=== PATIENT | male | born 1955 | race Caucasian/White ===

== ENCOUNTER → 2018-01-11 08:02 | Outpatient (CLI) | payer OTHER, SELFPAY ==
[2018-01-11 09:49] LABS: Anion Gap 6 (5-15); BUN 16 mg/dL (7-18); Calcium,Total 9.1 mg/dL (8.5-10.1); Chloride 102 mmol/L (98-107); Creatinine, Serum 0.73 mg/dL (0.70-1.30); EST Glomerular Filtration Rate 115 mL/min (>60); Est Glom Filt Rate - Afr Amer 140 mL/min (>60); Glucose 109 mg/dL (74-106); Sodium Level 138 mmol/L (136-145)
== END ==
PROVIDERS: Family Provider Family Medicine; PCP Family Medicine; Visit Provider Family Medicine
DX: I10 Essential (primary) hypertension (principal)
CPT/HCPCS: 36415; 80048

== ENCOUNTER → 2018-07-13 09:42 | Outpatient (CLI) | payer MEDICARE, OTHER, SELFPAY ==
[2018-07-13 12:07] LABS: AST(SGOT) 31 U/L (15-37); Alanine Aminotransfer ALT/SGPT 52 U/L (16-61); Albumin, Serum 3.8 g/dL (3.2-5.0); Alkaline Phosphatase 65 U/L (45-117); Bilirubin, Direct 0.12 mg/dL (0.00-0.30); Cholesterol 130 mg/dL (200); Globulin 4.2 g/dL (2.2-4.2); High Density Lipoprotein 24 mg/dL; Triglycerides 437 mg/dL
== END ==
PROVIDERS: Family Provider Family Medicine; PCP Family Medicine; Visit Provider Internal Medicine Cardiovascular Disease
DX: I10 Essential (primary) hypertension (principal); E78.5 Hyperlipidemia, unspecified
CPT/HCPCS: 36415; 80061; 80076

== ENCOUNTER → 2018-07-27 08:19 | Outpatient (CLI) | payer MEDICARE, OTHER, SELFPAY ==
--- NOTE | 2018-07-27 08:22 | ECHOCS_ITS ---
Reason For Study: HTN Procedure This was a 2D Doppler, Color Flow transthoracic echocardiogram. The study was technically difficult. Contrast injection was performed. Exam performed in department. Left Ventricle Normal LV size. The estimated ejection fraction is 55 %. Stage 1 diastolic dysfunction. No regional wall motion abnormalities noted. Right Ventricle Normal RV size. ICD or pacer leads identified within the right ventricle. Normal systolic function. Atria The left atrium is mildly enlarged. Normal right atrium. Mitral Valve Normal mitral valve. Tricuspid Valve Normal tricuspid valve. Aortic Valve Normal aortic valve. Trisinus/trileaflet aortic valve. Pulmonic Valve Normal pulmonic valve. Great Vessels Normal aortic root. The pulmonary artery is normal size. Normal inferior vena cava. Pericardium/Pleural No pericardial effusion. MMode/2D Measurements & Calculations LVIDd: 4.4 cm IVSd: 1.8 cm Ao root diam: 4.3 cm LVIDs: 3.6 cm LVPWd: 1.1 cm FS: 17.5 % LAV(MOD-bp): 73.9 ml LVAd ap4: 32.5 cm2 SV(MOD-sp4): 62.7 ml LAV(MOD-bp) Indexed: 83.8 ml/m2 EDV(MOD-sp4): 116.0 ml LAV(MOD-sp2): 65.6 ml EDV(sp4-el): 119.5 ml LAV(MOD-sp4): 77.2 ml LVAs ap4: 22.0 cm2 ESV(MOD-sp4): 53.3 ml ESV(sp4-el): 55.2 ml EF(MOD-sp4): 54.1 % EF(sp4-el): 53.8 % SV(sp4-el): 64.3 ml LA A4 area: 24.1 cm2 Time Measurements MV dec time: 0.33 sec Doppler Measurements & Calculations MV E max derik: 49.1 cm/sec Lat Peak E' Derik: 4.0 cm/sec Med Peak E' Derik: 3.2 cm/sec MV A max derik: 76.5 cm/sec E/E' lat: 12.3 E/E' med: 15.2 MV E/A: 0.64 MV V2 max: 78.3 cm/sec MV P1/2t max derik: 45.3 cm/sec Ao V2 max: 123.8 cm/sec MV max P.5 mmHg MV P1/2t: 120.7 msec Ao max P.1 mmHg MV V2 mean: 35.8 cm/sec MV dec slope: 109.9 cm/sec2 Ao V2 mean: 77.4 cm/sec MV mean P.62 mmHg MVA(P1/2t): 1.8 cm2 Ao mean P.9 mmHg MV V2 VTI: 21.7 cm Ao V2 VTI: 27.1 cm LV V1 max: 101.1 cm/sec PA V2 max: 82.8 cm/sec TR max derik: 227.4 cm/sec LV V1 max P.1 mmHg TR max P.7 mmHg LV V1 mean P.9 mmHg LV V1 mean: 61.6 cm/sec LV V1 VTI: 23.7 cm Interpretation Summary Normal LV size. The estimated ejection fraction is 55 %. Stage 1 diastolic dysfunction. The left atrium is mildly enlarged. Contrast injection was performed. Compared to previous study, the left ventricular systolic function has improved.. Ordering Physician: Christofer Martin Referring Physician: MELINDA TROTTER Performed By: Peewee Brown RCS
== END ==
PROVIDERS: Family Provider Family Medicine; PCP Family Medicine; Referring Provider Internal Medicine Cardiovascular Disease; Visit Provider Internal Medicine Cardiovascular Disease
DX: I10 Essential (primary) hypertension (principal); E78.5 Hyperlipidemia, unspecified; Z98.890 Other specified postprocedural states
CPT/HCPCS: 93306; Q9957; A4216; C8929

== ENCOUNTER → 2018-09-29 09:48 | Outpatient (CLI) | payer MEDICARE, OTHER, SELFPAY ==
[2018-09-29 10:54] LABS: AST(SGOT) 32 U/L (15-37); Alanine Aminotransfer ALT/SGPT 57 U/L (16-61); Albumin, Serum 3.8 g/dL (3.2-5.0); Alkaline Phosphatase 80 U/L (45-117); Bilirubin, Direct 0.09 mg/dL (0.00-0.30); Cholesterol 146 mg/dL (200); Globulin 4.2 g/dL (2.2-4.2); Glucose 107 mg/dL (74-106); High Density Lipoprotein 25 mg/dL; Thyroid Stim Hormone (TSH) 1.39 uIU/mL (0.358-3.74); Triglycerides 438 mg/dL
--- OUTSIDE RECORDS SUMMARY | 2018-11-24 04:54 | XMS RPT_ITS ---
:1955 Author Organization [place] Support Name Relationship Address Phone PIERCE PABLO Unavailable [phone] + [address] [place] [address] R Unavailable Unavailable Unavailable PIERCE PABLO Unavailable [address] + [address] [place] [address] R Unavailable Unavailable Unavailable HARRY PABLOAN Unavailable [address] + [place] [address] R Unavailable Unavailable Unavailable HARRY PABLOAN Unavailable [address] + [place] [address] R Unavailable Unavailable Unavailable HARRY PABLOAN Unavailable [address] + [place] [address] R Unavailable Unavailable Unavailable HARRY PABLOAN Unavailable [address] + [place] [address] R Unavailable Unavailable Unavailable HARRY PABLOAN Unavailable [address] + [place] [address] R Unavailable Unavailable Unavailable HARRY PABLOAN Unavailable [address] + [place] [address] R Unavailable Unavailable Unavailable HARRY PABLOAN Unavailable [address] + [place] [address] R Unavailable Unavailable Unavailable HARRY PABLOAN Unavailable [address] + [place] [address] CEM PABLO JR. Unavailable Unavailable Unavailable [place] PIERCE PABLO Unavailable [address] + [place] [address] R Unavailable Unavailable Unavailable PIERCE PABLO Unavailable NA + [place], [place] R Unavailable Unavailable Unavailable Care Team Providers Name Role Phone OLGA NIELSON Attending Unavailable CEDRIC PELAEZ Referring Unavailable JAYCE KABA Primary Care Unavailable MAYCO, MELINDA Guardado Attending Unavailable MAYCO, MELINDA J Referring Unavailable MAYCO, MELINDA J Attending Unavailable MAYCO, MELINDA J Referring Unavailable MAYCO, MELINDA J Referring Unavailable KAVYA BONNER Attending Unavailable MAYCO, MELINDA Guardado Referring Unavailable Kavya Bonner Attending Unavailable Mayco, Melinda Primary Care Unavailable Mayco, Melinda Referring Unavailable Veronica, Graettinger Attending Unavailable Veronica, Christofer Referring Unavailable Mayco, Melinda Primary Care Unavailable Chela Palomo Attending Unavailable Deenwood, Melinda Referring Unavailable Veronica, Christofer Attending Unavailable Veronica, Christofer Referring Unavailable Mayco, Melinda Primary Care Unavailable Veronica, Christofer Attending Unavailable Amyco, Melinda Referring Unavailable Deenwood, Melinda Primary Care Unavailable Chela Palomo Attending Unavailable Deenwood, Melinda Referring Unavailable Mayco, Melinda Primary Care Unavailable Mayco, Melinda Attending Unavailable Deenwood, Melinda Referring Unavailable Deenwood, Melinda Primary Care Unavailable Chela Palomo Attending Unavailable Mayco, Melinda Referring Unavailable Mayco, Melinda Primary Care Unavailable Veronica, Christofer Attending Unavailable Veronica, Graettinger Referring Unavailable Veronica, Graettinger Attending Unavailable Veronica, Christofer Referring Unavailable Deenwood, Melinda Primary Care Unavailable Chela Palomo Attending Unavailable Deenwood, Melinda Referring Unavailable Mayco, Melinda Primary Care Unavailable PROBLEMS PROBLEMS DATE TYPE CONDITION / CODE ATTENDING STATUS SOURCE 2018 Unknown I10 - Essential Veronica, Christofer Active [place] (primary) Community hypertension / Hospital I10(ICD-10) Repository 2018 Unknown E78.5 - Veronica, Christofer Active [place] Hyperlipidemia, Community unspecified / Hospital E78.5(ICD-10) Repository 2018 Unknown Z98.890 - Other Veronica, Graettinger Active [place] specified Community postprocedural Hospital states / Repository Z98.890(ICD-10) 2018 Unknown I47.2 - Ventricular Veronica, Christofer Active [place] tachycardia / Community I47.2(ICD-10) Hospital Repository 2018 Unknown I42.2 - Other Veronica, Graettinger Active [place] hypertrophic Community cardiomyopathy / Hospital I42.2(ICD-10) Repository 2018 Unknown Z95.810 - Presence Veronica, Christofer Active [facility] (implantable[facility] Hospital cardiac Repository defibrillator / Z95.810(ICD-10) 04/26/2018 Active Calculus of kidney / NA Active [place] N20.0(ICD-10) Clinic Main [place] Repository 04/25/2018 Active Radiculopathy, NA Active [place] lumbar region / Clinic Main M54.16(ICD-10) [place] Repository 01/12/2018 Admitting Mohs Surgery / 936() OLGA NIELSON Active [facility] Repository PROCEDURES PROCEDURES No Procedure Records FoundRESULTS RESULTS OPERATIVE REPORT - Observed: 10/04/2018 Status: F Source: [place] [facility] 2:00 PM [facility] REPOSITORY [facility] Medical Records Department [address] [place] [address] Operative Report - Endoscopy MR#: [id number] Acct: [id number] Name: CEM PABLO Rep #: [id number] : 1955 63 From: Kavya Bonner MD PCP: Melinda Mao MD Status: [facility] Patient Name: Cem Pablo Procedure Date: 10/04/2018 1:18 PM Date of : 1955 Age: 63 Procedure: Colonoscopy Indications: Screening for colorectal malignant neoplasm Providers: Kavya Bonner MD Referring MD: Melinda Mao Medicines: Midazolam 5 mg IV, Fentanyl 100 micrograms IV, Diphenhydramine 50 mg IV Patient Profile: Refer to note in patient chart for documentation of history and physical. Last Colonoscopy: 10 years ago. Complications: No immediate complications. Procedure: Pre-Anesthesia Assessment: - Prior to the procedure, a History and Physical was performed, and patient medications and allergies were reviewed. The patient is competent. The risks and benefits of the procedure and the sedation options and risks were discussed with the patient. All questions were answered and informed consent was obtained. Patient identification and proposed procedure were verified by the physician in the pre-procedure area. Mental Status Examination: alert and oriented. Airway Examination: normal oropharyngeal airway and neck mobility. Respiratory Examination: clear to auscultation. CV Examination: normal. Prophylactic Antibiotics: The patient does not require prophylactic antibiotics. Prior Anticoagulants: The patient has taken no previous anticoagulant or antiplatelet agents. ASA Grade Assessment: II - A patient with mild systemic disease. After reviewing the risks and benefits, the patient was deemed in satisfactory condition to undergo the procedure. The anesthesia plan was to use moderate sedation / analgesia (conscious sedation). Immediately prior to administration of medications, the patient was re-assessed for adequacy to receive sedatives. The heart rate, respiratory rate, oxygen saturations, blood pressure, adequacy of pulmonary ventilation, and response to care were monitored throughout the procedure. The physical status of the patient was re-assessed after the procedure. After I obtained informed consent, the scope was passed under direct vision. Throughout the procedure, the patient's blood pressure, pulse, and oxygen saturations were monitored continuously. The colonoscope was introduced through the anus and advanced to the cecum, identified by appendiceal orifice and ileocecal valve. The colonoscopy was performed without difficulty. The patient tolerated the procedure well. The quality of the bowel preparation was adequate, though required time for lavage to completely clear the grimaldo.. Moderate Sedation: The administration of moderate sedation was initiated at 13:24 PM. Moderate (conscious) sedation was personally administered by the endoscopist. The following parameters were monitored: oxygen saturation, heart rate, blood pressure, and response to care. Total physician intraservice time was 10 minutes. Scope In: 1:30:23 PM Scope Withdrawal Time 0 hours 18 minutes 13 seconds Scope Out: 1:54:14 PM Total Procedure Duration Time 0 hours 23 minutes 51 seconds Findings: The perianal and digital rectal examinations were normal. Pertinent negatives include normal sphincter tone. A 5 to 10 mm polyp was found in the sigmoid colon, picture could not be obtained due to location under a fold. The polyp was sessile. The polyp was removed with a cold biopsy forceps. Resection and retrieval were complete. Verification of patient identification for the specimen was done by the nurse. Estimated blood loss was minimal. Non-bleeding internal hemorrhoids were found. Impression: - One 5 to 10 mm polyp in the sigmoid colon, removed with a cold biopsy forceps. Resected and retrieved. - Non-bleeding internal hemorrhoids. Recommendation: - Repeat colonoscopy date to be determined after pending pathology results are reviewed for surveillance based on pathology results. - Telephone my office for pathology results in 1 week. - Continue present medications. Procedure Code(s): --- Professional --- 58556, Colonoscopy, flexible; with biopsy, single or multiple G0500, Moderate sedation services provided by the same physician or other qualified health inpatient care manager rn performing a gastrointestinal endoscopic service that sedation supports, requiring the presence of an independent trained observer to assist in the monitoring of the patient's level of consciousness and physiological status; initial 15 minutes of intra-service time; patient age 5 years or older (additional time may be reported with 76737, as appropriate) Diagnosis Code(s): --- Professional --- K64.8, Other hemorrhoids D12.5, Benign neoplasm of sigmoid colon Z12.11, Encounter for screening for malignant neoplasm of colon CPT copyright 2017 [employer]. All rights reserved. The codes documented in this report are preliminary and upon corporate law specialist review may be revised to meet current compliance requirements. MD Kavya Wesley MD 10/04/2018 2:00:21 PM This report has been signed electronically. Number of Addenda: 0 Note Initiated On: 10/04/2018 1:18 PM 10/04/18 1400 Date Kavya Bonner MD Cosigner Signature: Date (if indicated) CC: Kavya Bonner MD; Melinda Mao MD Date Dictated: 10/04/18 1318 Date Transcribed: [place]: LW Signed COLON BIOPSY (CHOOSE Observed: 10/04/2018 Status: F Source: [place] SITE) 12:50 PM [facility] REPOSITORY Patient: CEM PABLO Jr. : 1955 (63/M) Acct Num: [id number] Phys: Ha HAYDEN,Kavya Unit Num: [id number] Loc: EN Specimen: [id number] Received: 10/04/18 - 1517 Spec Type: COLON BX TISSUES 1 TISSUES: Sigmoid colon biopsy GROSS DESCRIPTION Received in fixative is one container labeled with the patient's name and designated biopsy polyp sigmoid. The specimen consists of one irregular fragment of light parr soft tissue that measures 0.4 x 0.3 x 0.1 cm. The specimen is totally submitted in one cassette. / CHRIS:tate 10/05/18 TC:1 CPT: 28111 HEADER OPERATION: Colonoscopy (MOD) PRE-OP DIAGNOSIS: Screening TISSUE SUBMITTED: Biopsy polyp sigmoid MICROSCOPIC DESCRIPTION Slides are reviewed. MICROSCOPIC DIAGNOSIS Sigmoid polyp, biopsy: Tubular adenoma. SJ:tate 10/06/18 Signed Devonte Connorin 10/06/18 <signature on file> Performed By: #### PCOLBX #### [facility] [address] [place], [address] LIVER PROFILE Collected: 09/29/2018 Status: F Source: [place] 9:53 AM [facility] REPOSITORY TYPE CODE TESTS RESULT OUT OF RANGE REFERENCE UNITS LAB L501.1500 6.4-8.2 g/dL Normal T PROT 8.0 LAB L501.1800 3.2-5.0 g/dL Normal ALB 3.8 LAB L501.1950 2.2-4.2 g/dL Normal GLOB 4.2 LAB L501.4100 15-37 U/L Normal AST 32 LAB L501.4305 45-117 U/L Normal ALK P 80 LAB L501.4405 16-61 U/L Normal ALT 57 LAB L501.4600 0.20-1.00 mg/dL Normal T BILI 0.50 LAB L501.4700 0.00-0.30 mg/dL Normal D BILI 0.09 Performed By: #### L500.3400, L500.4100, L501.0100, L501.9520 #### [facility] [address] [place], [place], [id number] LIPID PROFILE Collected: 09/29/2018 Status: F Source: [place] 9:53 AM [facility] REPOSITORY TYPE CODE TESTS RESULT OUT OF RANGE REFERENCE UNITS LAB L501.4900 200 mg/dL Normal CHOL 146 Result Comment: <200 mg/dL Desirable 200-240 mg/dL Borderline >240 mg/dL High Risk LAB L501.5000 mg/dL High TRIG 438 Result Comment: The drugs N-Acetylcysteine and Metamizole may falsely depress this assay. TRIGLYCERIDE IS GREATER THAN 400 mg/dL. LDL RESULT IS INVALID AND WILL NOT BE REPORTED. Serum Triglycerides Reference Interval Normal <150 mg/dL Borderline high 150 - 199 mg/dL High 200 - 499 mg/dL Very High > or = 500 mg/dL LAB L501.6400 mg/dL Low HDL 25 Result Comment: The drugs N-Acetylcysteine and Metamizole may falsely depress this assay. Reference Range HDL <40 mg/dL Low HDL Cholesterol HDL >or= 60 mg/dL High HDL Cholesterol LAB L501.6500 0-130 mg/dL Test Normal not performed LDL LAB L501.6600 5-40 mg/dL Test Normal not performed VLDL Performed By: #### L500.3400, L500.4100, L501.0100, L501.9520 #### [facility] [address] [place], [address] GLUCOSE Collected: 09/29/2018 Status: F Source: [place] 9:53 AM [facility] REPOSITORY TYPE CODE TESTS RESULT OUT OF RANGE REFERENCE UNITS LAB L501.0100 74-106 mg/dL High GLU 107 Result Comment: Fasting Glucose result from 100 to 125 mg/dL suggests IMPAIRED HOMEOSTASIS per A.D.A. criteria. Please note revised GLUCOSE reference range effective 2017. Performed By: #### L500.3400, L500.4100, L501.0100, L501.9520 #### [facility] [address] [place], [address] THYROID STIM HORMONE Collected: 09/29/2018 Status: F Source: [place] (TSH) 9:53 AM [facility] REPOSITORY TYPE CODE TESTS RESULT OUT OF RANGE REFERENCE UNITS LAB L501.9520 0.358-3.74 uIU/mL Normal TSH 1.39 Performed By: #### L500.3400, L500.4100, L501.0100, L501.9520 #### [facility] [address] [place], [address] PACEMAKER CHECK Observed: 09/18/2018 Status: F Source: [place] 3:33 PM [facility] REPOSITORY [facility] [address] [place] [address] Pacemaker Check Date of Service: 09/15/18 1151 MR#: [id number] Acct: [id number] Name: CEM PABLO Jr. Rep #: [id number] : 1955 From: Chela Palomo Age/Sex: 63/M Location: [facility] Status: Signed Billing Codes ICD Device Billing: ICD Dev Prog Jt Kolby 09/15/18 1156 <Electronically signed by Chela Palomo > Date Chela Palomo 09/18/18 1533<Electronically signed by Christofer Martin MD> Cosigner Signature: Date (if applicable) Christofer Martin MD CC: PROGRESS Observed: 09/18/2018 Status: COMPLETED Source: [place] 1:02 PM [facility] REPOSITORY O ID: [id number] Author: Kavya Bonner Service: (none) Author Type: Physician Type: Progress Notes Filed: 09/22/2018 9:06 AM Note Text: Cem Pablo 1955 REFERRING PHYSICIAN: Melinda Mao MD CHIEF COMPLAINT: Consult (colonoscopy) HPI: The patient is a 63 year old male presents for consideration of screening for colon cancer via colonoscopy. No colon cancer known in family. Denies blood in stools. Denies abdominal pain. Denies changes in bowel habits. Had last colonoscopy about 10 years ago. Had active wakeup with neck surgery, was saying strange things after carpal tunnel surgery - concern about this with regard to anesthesia. PAST MEDICAL HISTORY Diagnosis Date - Basal cell carcinoma (BCC) of skin of lip 01/14/2018 - Benign neoplasm of colon - BPH (benign prostatic hyperplasia) - Cardiomyopathy (HCC) Veronica Beckham, ICD - Hematuria negative work up-Dr. Garnett - HTN (hypertension) - Hypercholesteremia PAST SURGICAL HISTORY Procedure Laterality Date - COLONOSCOPY W/BX 05/02/08 - PAST SURGICAL HISTORY OF 1974 Left knee surgery - PAST SURGICAL HISTORY OF 02/2012 ICD placement at [facility]- done by Dr Serrano - PAST SURGICAL HISTORY OF 2010 right carpal tunnel release - PAST SURGICAL HISTORY OF 07/26/2013 cervical (Dr. Mcbride) Current Outpatient Prescriptions: hydroCHLOROthiazide (HYDRODIURIL, ESIDRIX) 25 mg tablet Take 1 tablet by mouth once daily. pravastatin (PRAVACHOL) 40 mg tablet Take 1 tablet by mouth once daily. doxazosin (CARDURA) 1 mg tablet Take 1 tablet by mouth once daily. lisinopril (ZESTRIL, PRINIVIL) 20 mg tablet Take 1 tablet by mouth twice daily. carvedilol (COREG) 12.5 mg tablet Take 12.5 mg by mouth twice daily with meals. aspirin, enteric coated (ADULT LOW DOSE ASPIRIN) 81 mg EC tablet Take 1 tablet by mouth once daily. ALLERGIES: Phenobarbital PERSONAL HISTORY: Social History Marital status: Spouse name: Years of education: Number of children: Social History Main Topics Smoking status: Former Smoker Packs/day: 1.50 Years: 0.00 Types: Cigarettes Quit date: 07/26/2011 Smokeless tobacco: Never Used Alcohol use: No Drug use: No FAMILY HISTORY Problem Relation Age of Onset - other (cirrhosis) Mother - Cancer Father lung - Heart Father - COPD Father - Diabetes Sister REVIEW OF SYSTEMS: General: The patient denies fatigue, denies weight loss, denies weight gain, denies feeling hot, and denies feelings of cold. Eyes: The patient denies glaucoma, denies eye injury/surgery, wears glasses or contacts. Ear/Nose/Throat: The patient denies allergies, denies hayfever, denies ear infections, and denies bloody noses. Cardiovascular: last ECHO - EF 55%, has atypical hypertrophic cardiomyopathy, denies chest pain, denies heart disease, denies high blood pressure,denies cardiac stent, denies prior heart attack, denies irregular heart beat, denies high cholesterol, denies poor circulation, denies heart failure, other cardiac issues, denies claudication, denies cold feet, denies peripheral arterial stent. Respiratory: The patient denies tuberculosis, denies pneumonia, denies frequent cough, denies pulmonary embolism, denies shortness of breath, and denies coughing up blood. Gastrointestinal: The patient denies difficulty swallowing, denies acid reflux, denies ulcers, denies vomiting, denies jaundice/hepatitis, denies gallbladder problems, denies black or tarry stools, denies hemorrhoids, denies bleeding from rectum, denies diverticulitis, denies constipation, denies diarrhea, denies loss of stool control, and denies hernias. Kidney/Bladder: The patient denies kidney stones, denies urine infections, and denies bloody urine. Skin: The patient NOTES a history of skin cancer, denies bleeding/changing moles, and denies a history of skin rash. Neurologic: The patient denies a history of epilepsy/convulsions, denies headaches, denies head/spinal injuries, and denies stroke/TIA. Psychiatric: The patient denies psychiatric medications, denies depression, and denies voices, denies substance abuse. Endocrine: The patient denies thyroid disorders, denies diabetes, and denies hormonal problems. Hematologic: The patient denies a history of bruising, denies bleeding, and denies anemia, denies blood clots. Infections: The patient denies a history of measles and mumps, denies rheumatic fever, and denies sexually transmitted diseases. Musculoskeletal: The patient denies back pain/injury, denies back problems, denies sciatica, denies knee/foot trouble, denies arthritis, or denies gout. PHYSICAL EXAMINATION: General: The patient is 63 year old male, well nourished, well hydrated in no acute distress. The patient is oriented to time, place, and person. VITALS: Blood pressure 150/94, pulse 72, weight 111.1 kg (245 lb). Ht: 6'2 Body mass index is 31.46 kg/m?. Head ? Normocephalic. EOM intact with sclera clear and no icterus noted. Wearing glasses. Mouth with mucus membranes moist. Neck - supple with no jugular venous distention noted. Trachea is midline. Lungs ? clear to auscultation. Normal breath sounds. No rales/rhonchi/wheezing noted. No labored breathing noted, such as retractions. Heart ? normal S1 and S2 auscultated. No rubs/clicks/murmurs noted. Regular rate. Abdomen ? soft and benign. Normal bowel sounds Extremities ? no calf tenderness noted. Skin ? normal skin integrity. Neurological ? gait normal, no focal deficits noted Psych ? calm and appropriate Assessment IMPRESSION: screening for colon cancer via colonoscopy, adverse reaction to anesthesia in past PLAN: I have discussed the above with the patient. I have offered colonoscopy, possible biopsies. I have explained the procedure to the patient. I have counseled the patient as to the risks of the procedure, including but not limited to: infection, bleeding, injury to any blood vessels/nerves, perforation of the GI tract, inability to complete the procedure, injury to any intraabdominal organs such as liver/spleen, complications of anesthesia, etc. ? the patient understands. The patient wishes to proceed. I have reviewed the patient's anesthesia history and I believe that he will tolerate moderate IV conscious sedation in the AEC I have answered all questions to the patient?s satisfaction and the patient has no further questions. . Diagnoses: No diagnosis found. Return to Clinic: The patient is instructed to follow-up with me after the procedure as needed Kavya Bonner MD CNOV Observed: 09/18/2018 Status: COMPLETED Source: [place] 1:00 PM [facility] REPOSITORY Office Visit (GENSWS) CEM PABLO ([id number]) 1955 M Date Time Provider Department 09/18/18 1:00 PM KAVYA BONNER During your visit today, we recorded the following information about you: Pulse Blood pressure Weight 72/minute 150/94 111.1 kg Kavya Bonner MD 09/22/2018 9:06 AM Signed Cem Pablo 1955 REFERRING PHYSICIAN: Melinda Mao MD CHIEF COMPLAINT: Consult (colonoscopy) HPI: The patient is a 63 year old male presents for consideration of screening for colon cancer via colonoscopy. No colon cancer known in family. Denies blood in stools. Denies abdominal pain. Denies changes in bowel habits. Had last colonoscopy about 10 years ago. Had active wakeup with neck surgery, was saying strange things after carpal tunnel surgery - concern about this with regard to anesthesia. PAST MEDICAL HISTORY Diagnosis Date - Basal cell carcinoma (BCC) of skin of lip 01/14/2018 - Benign neoplasm of colon - BPH (benign prostatic hyperplasia) - Cardiomyopathy (HCC) Veronica Beckham, ICD - Hematuria negative work up-Dr. Garnett - HTN (hypertension) - Hypercholesteremia PAST SURGICAL HISTORY Procedure Laterality Date - COLONOSCOPY W/BX 05/02/08 - PAST SURGICAL HISTORY OF 1974 Left knee surgery - PAST SURGICAL HISTORY OF 02/2012 ICD placement at [facility]- done by Dr Serrano - PAST SURGICAL HISTORY OF 2010 right carpal tunnel release - PAST SURGICAL HISTORY OF 07/26/2013 cervical (Dr. Mcbride) Current Outpatient Prescriptions: hydroCHLOROthiazide (HYDRODIURIL, ESIDRIX) 25 mg tablet Take 1 tablet by mouth once daily. pravastatin (PRAVACHOL) 40 mg tablet Take 1 tablet by mouth once daily. doxazosin (CARDURA) 1 mg tablet Take 1 tablet by mouth once daily. lisinopril (ZESTRIL, PRINIVIL) 20 mg tablet Take 1 tablet by mouth twice daily. carvedilol (COREG) 12.5 mg tablet Take 12.5 mg by mouth twice daily with meals. aspirin, enteric coated (ADULT LOW DOSE ASPIRIN) 81 mg EC tablet Take 1 tablet by mouth once daily. ALLERGIES: Phenobarbital PERSONAL HISTORY: Social History Marital status: Spouse name: Years of education: Number of children: Social History Main Topics Smoking status: Former Smoker Packs/day: 1.50 Years: 0.00 Types: Cigarettes Quit date: 07/26/2011 Smokeless tobacco: Never Used Alcohol use: No Drug use: No FAMILY HISTORY Problem Relation Age of Onset - other (cirrhosis) Mother - Cancer Father lung - Heart Father - COPD Father - Diabetes Sister REVIEW OF SYSTEMS: General: The patient denies fatigue, denies weight loss, denies weight gain, denies feeling hot, and denies feelings of cold. Eyes: The patient denies glaucoma, denies eye injury/surgery, wears glasses or contacts. Ear/Nose/Throat: The patient denies allergies, denies hayfever, denies ear infections, and denies bloody noses. Cardiovascular: last ECHO - EF 55%, has atypical hypertrophic cardiomyopathy, denies chest pain, denies heart disease, denies high blood pressure,denies cardiac stent, denies prior heart attack, denies irregular heart beat, denies high cholesterol, denies poor circulation, denies heart failure, other cardiac issues, denies claudication, denies cold feet, denies peripheral arterial stent. Respiratory: The patient denies tuberculosis, denies pneumonia, denies frequent cough, denies pulmonary embolism, denies shortness of breath, and denies coughing up blood. Gastrointestinal: The patient denies difficulty swallowing, denies acid reflux, denies ulcers, denies vomiting, denies jaundice/hepatitis, denies gallbladder problems, denies black or tarry stools, denies hemorrhoids, denies bleeding from rectum, denies diverticulitis, denies constipation, denies diarrhea, denies loss of stool control, and denies hernias. Kidney/Bladder: The patient denies kidney stones, denies urine infections, and denies bloody urine. Skin: The patient NOTES a history of skin cancer, denies bleeding/changing moles, and denies a history of skin rash. Neurologic: The patient denies a history of epilepsy/convulsions, denies headaches, denies head/spinal injuries, and denies stroke/TIA. Psychiatric: The patient denies psychiatric medications, denies depression, and denies voices, denies substance abuse. Endocrine: The patient denies thyroid disorders, denies diabetes, and denies hormonal problems. Hematologic: The patient denies a history of bruising, denies bleeding, and denies anemia, denies blood clots. Infections: The patient denies a history of measles and mumps, denies rheumatic fever, and denies sexually transmitted diseases. Musculoskeletal: The patient denies back pain/injury, denies back problems, denies sciatica, denies knee/foot trouble, denies arthritis, or denies gout. PHYSICAL EXAMINATION: General: The patient is 63 year old male, well nourished, well hydrated in no acute distress. The patient is oriented to time, place, and person. VITALS: Blood pressure 150/94, pulse 72, weight 111.1 kg (245 lb). Ht: 6'2 Body mass index is 31.46 kg/m?. Head ? Normocephalic. EOM intact with sclera clear and no icterus noted. Wearing glasses. Mouth with mucus membranes moist. Neck - supple with no jugular venous distention noted. Trachea is midline. Lungs ? clear to auscultation. Normal breath sounds. No rales/rhonchi/wheezing noted. No labored breathing noted, such as retractions. Heart ? normal S1 and S2 auscultated. No rubs/clicks/murmurs noted. Regular rate. Abdomen ? soft and benign. Normal bowel sounds Extremities ? no calf tenderness noted. Skin ? normal skin integrity. Neurological ? gait normal, no focal deficits noted Psych ? calm and appropriate Assessment IMPRESSION: screening for colon cancer via colonoscopy, adverse reaction to anesthesia in past PLAN: I have discussed the above with the patient. I have offered colonoscopy, possible biopsies. I have explained the procedure to the patient. I have counseled the patient as to the risks of the procedure, including but not limited to: infection, bleeding, injury to any blood vessels/nerves, perforation of the GI tract, inability to complete the procedure, injury to any intraabdominal organs such as liver/spleen, complications of anesthesia, etc. ? the patient understands. The patient wishes to proceed. I have reviewed the patient's anesthesia history and I believe that he will tolerate moderate IV conscious sedation in the A[facility] I have answered all questions to the patient?s satisfaction and the patient has no further questions. . Diagnoses: No diagnosis found. Return to Clinic: The patient is instructed to follow-up with me after the procedure as needed MD Kavya Black MD 09/18/2018 1:14 PM Signed How to Prepare for Your Colonoscopy Using Golytely, Nulytely, Trilyte or Colyte Preparations with Conscious Sedation IMPORTANT - Read These Instructions at Least 2 Weeks Before your Colonoscopy Grewal Instructions: ? Your bowel must be empty so that your doctor can clearly view your colon. Follow all of the instructions in this handout EXACTLY as they are written. If you do NOT follow the directions for when to start drinking the bowel preparation, your colonoscopy WILL be cancelled. ? Do NOT eat any solid food the ENTIRE day before your colonoscopy. ? Buy your bowel preparation at least 5 days before your colonoscopy. ? Do NOT mix the solution until the day before your colonoscopy. Designated Timber Appraiser on the Day of Your Exam A responsible family member or friend MUST come with you to your colonoscopy and REMAIN in the endoscopy area until you are discharged. You are NOT ALLOWED to drive, take a taxi or bus, or leave the Endoscopy Center ALONE. If you do not have a responsible water tanker driver (family member or friend) with you to take you home, you exam cannot be done with sedation and will be cancelled. Medications Some of the medications you take may need to be stopped or adjusted before your colonoscopy. You MUST call the doctor who ordered any of the following medicines at least 2 weeks before your colonoscopy. ? Blood thinners - such as Coumadin (warfarin), Plavix (clopidogrel), Ticlid (ticlopidine hydrochloride), Agrylin (anagrelide), Xarelto (Rivaroxaban), Pradaxa (Dabigatran), Eliquis (Apixaban), and Effient (Prasugrel). ? Insulin or diabetes pills. Please call the doctor that monitors your glucose levels. Your insulin dosage may need to be adjusted due to the diet restrictions required with this bowel preparation. (Please bring your diabetes medicines with you on the day of your procedure.) If you take aspirin, take it and ALL other medications prescribed by your doctor. On the day of your colonoscopy, take your medications with a sip of water. Five (5) Days Before Your Colonoscopy ? Do NOT take medicines that stop diarrhea - such as Imodium, Kaopectate, or Pepto Bismol. ? Do NOT take fiber supplements - such as Metamucil, Citrucel, or Perdiem. ? Do NOT take products that contain iron - such as multi-vitamins (the label lists what is in the products). ? Do NOT take Vitamin E. Buy the prescription bowel preparation solution at your local pharmacy or drugstore pharmacy. Three (3) Days Before Your Colonoscopy ? Do NOT eat high-fiber foods - such as popcorn, beans, seeds (flax, sunflower, quinoa), multigrain bread, nuts, salad/vegetables, or fresh and dried fruit. One (1) Day Before Your Colonoscopy Only drink clear liquids the ENTIRE DAY before your colonoscopy. Do NOT eat any solid foods. Drink at least 8 ounces of clear liquids every hour after waking up. The clear liquids you can drink include: ? Water, apple, or white grape juice; broth; coffee or tea (without milk or creamer); clear carbonated beverages such as balta diallo or lemon-confederated colville soda; Gatorade or other sports drinks (not red); Morro-Aid or other flavored drinks (not red). You may eat plain jello or other gelatins (not red) or popsicles (not red). Do NOT drink alcohol on the day before or the day of the procedure. When to Mix and Drink Your Bowel Prep Follow the instructions on the label. After mixing, place the solution in the refrigerator for a couple of hours before drinking. You may add the flavor pack that came with the bowel preparation. Do NOT add ice, sugar or any flavorings to the solution. Morning Appointment (Before 12 noon) Step 1: ? Start drinking the bowel preparation at 6 PM the evening before your colonoscopy. Drink an 8-oz glass of bowel preparation every 10 minutes for a total of 8 glasses. ? You may continue to drink clear liquids until bedtime. Step 2: The day of the colonoscopy (4 hours before your exam). ? Drink an 8-oz glass of bowel preparation every 10 minutes for a total of 8 glasses. ? You may continue to drink clear liquids up to 2 hours before your exam. If you take aspirin, take it and ALL other prescribed medicines with a sip of water on the day of your colonoscopy. Afternoon Appointment (After 12 noon) ? Start drinking the bowel preparation at 6 AM the day of your colonoscopy. Drink an 8-oz glass of bowel preparation every 10 minutes. You must finish drinking the solution by 9 AM. ? You may continue to drink clear liquids up to 2 hours before your exam. If you take aspirin, take it and ALL other prescribed medicines with a sip of water on the day of your colonoscopy. Gudelia Lemus LPN 09/18/2018 1:18 PM Signed REVIEW OF SYSTEMS: General: The patient denies fatigue, denies weight loss, denies weight gain, denies feeling hot, and denies feelings of cold. Eyes: The patient denies glaucoma, denies eye injury/surgery, wears glasses or contacts. Ear/Nose/Throat: The patient denies allergies, denies hayfever, denies ear infections, and denies bloody noses. Cardiovascular: The patient denies chest pain, denies heart disease, denies high blood pressure,denies cardiac stent, denies prior heart attack, denies irregular heart beat, denies high cholesterol, denies poor circulation, denies heart failure, other cardiac issues, denies claudication, denies cold feet, denies peripheral arterial stent. Respiratory: The patient denies tuberculosis, denies pneumonia, denies frequent cough, denies pulmonary embolism, denies shortness of breath, and denies coughing up blood. Gastrointestinal: The patient denies difficulty swallowing, denies acid reflux, denies ulcers, denies vomiting, denies jaundice/hepatitis, denies gallbladder problems, denies black or tarry stools, denies hemorrhoids, denies bleeding from rectum, denies diverticulitis, denies constipation, denies diarrhea, denies loss of stool control, and denies hernias. Kidney/Bladder: The patient denies kidney stones, denies urine infections, and denies bloody urine. Skin: The patient NOTES a history of skin cancer, denies bleeding/changing moles, and denies a history of skin rash. Neurologic: The patient denies a history of epilepsy/convulsions, denies headaches, denies head/spinal injuries, and denies stroke/TIA. Psychiatric: The patient denies psychiatric medications, denies depression, and denies voices, denies substance abuse. Endocrine: The patient denies thyroid disorders, denies diabetes, and denies hormonal problems. Hematologic: The patient denies a history of bruising, denies bleeding, and denies anemia, denies blood clots. Infections: The patient denies a history of measles and mumps, denies rheumatic fever, and denies sexually transmitted diseases. Musculoskeletal: The patient denies back pain/injury, denies back problems, denies sciatica, denies knee/foot trouble, denies arthritis, or denies gout. When was patient's last Mammogram screening? N/A Last Colonoscopy: 04/2008 Gudelia Osler PHYSICS PROFESSOR Referring Provider: MELINDA MAO [[id number]] Allergies As of Date: 09/18/2018 Noted Allergy Reaction PHENOBARBITAL 04/25/2013 4 - Hives Date Reviewed: 09/18/2018 Reviewed by: Kavya Bonner - Fully Assessed Reason for Visit: Consult [173] Cmt: colonoscopy Primary Visit Diagnosis:Screening for colon cancer [Z12.11] Other Visit Diagnosis:Complication of anesthesia, initial encounter [T41.45XA] Order(s):[] peg 3350-Electrolytes (GOLYTELY) 236-22.74-6.74 -5.86 gram suspensionTake 4,000 mL by mouth one time only for 1 dose. Refer to printed prep instructions from your doctor.Disp: 1 BottleRfl: 0 SARTH[facility] PT ED DIGESTIVE DISEASES [[id number]] Order #: [id number]: 1 COLONOSCOPY SCRN NOT HIGH RISK [[id number]] Order #: [id number] [facility] SARTHAK PT ED DIGESTIVE DISEASES [[id number]] Order #: [id number]. #:[id number]: [id number] Prescriptions as of 09/18/2018 Sig: HYDROCHLOROTHIAZIDE 25 MG TAB* Take 1 tablet by mouth once d* PRAVASTATIN 40 MG TABLET Take 1 tablet by mouth once d* DOXAZOSIN 1 MG TABLET Take 1 tablet by mouth once d* LISINOPRIL 20 MG TABLET Take 1 tablet by mouth twice * CARVEDILOL 12.5 MG TABLET Take 12.5 mg by mouth twice d* ASPIRIN 81 MG TABLET,DELAYED * Take 1 tablet by mouth once d* PEG 3350-ELECTROLYTES 236 GRA* Take 4,000 mL by mouth one ti* Problem List As Of Date 09/18/2018 Noted Resolved BENIGN NEOPLASM LG BOWEL [D12.6] INVALID FOR* Cervical spondylosis without myelopathy [M47.81*INVALID FOR* Displacement of cervical intervertebral disc wi*INVALID FOR* Spinal stenosis in cervical region [M48.02] INVALID FOR* Hypertrophic cardiomyopathy [I42.2] INVALID FOR* HTN (hypertension) [I10] INVALID FOR* Arthrodesis status [Z98.1] INVALID FOR* Cervicalgia [M54.2] INVALID FOR* Elevated glucose level [R73.09] INVALID FOR* Hypercholesteremia [E78.00] Basal cell carcinoma (BCC) of skin of lip [C44.*INVALID FOR* More... Other instructions from your clinician: How to Prepare for Your Colonoscopy Using Golytely, Nulytely, Trilyte or Colyte Preparations with Conscious Sedation IMPORTANT - Read These Instructions at Least 2 Weeks Before your Colonoscopy Grewal Instructions: ? Your bowel must be empty so that your doctor can clearly view your colon. Follow all of the instructions in this handout EXACTLY as they are written. If you do NOT follow the directions for when to start drinking the bowel preparation, your colonoscopy WILL be cancelled. ? Do NOT eat any solid food the ENTIRE day before your colonoscopy. ? Buy your bowel preparation at least 5 days before your colonoscopy. ? Do NOT mix the solution until the day before your colonoscopy. Designated Timber Appraiser on the Day of Your Exam A responsible family member or friend MUST come with you to your colonoscopy and REMAIN in the endoscopy area until you are discharged. You are NOT ALLOWED to drive, take a taxi or bus, or leave the Endoscopy Center ALONE. If you do not have a responsible water tanker driver (family member or friend) with you to take you home, you exam cannot be done with sedation and will be cancelled. Medications Some of the medications you take may need to be stopped or adjusted before your colonoscopy. You MUST call the doctor who ordered any of the following medicines at least 2 weeks before your colonoscopy. ? Blood thinners - such as Coumadin (warfarin), Plavix (clopidogrel), Ticlid (ticlopidine hydrochloride), Agrylin (anagrelide), Xarelto (Rivaroxaban), Pradaxa (Dabigatran), Eliquis (Apixaban), and Effient (Prasugrel). ? Insulin or diabetes pills. Please call the doctor that monitors your glucose levels. Your insulin dosage may need to be adjusted due to the diet restrictions required with this bowel preparation. (Please bring your diabetes medicines with you on the day of your procedure.) If you take aspirin, take it and ALL other medications prescribed by your doctor. On the day of your colonoscopy, take your medications with a sip of water. Five (5) Days Before Your Colonoscopy ? Do NOT take medicines that stop diarrhea - such as Imodium, Kaopectate, or Pepto Bismol. ? Do NOT take fiber supplements - such as Metamucil, Citrucel, or Perdiem. ? Do NOT take products that contain iron - such as multi- vitamins (the label lists what is in the products). ? Do NOT take Vitamin E. Buy the prescription bowel preparation solution at your local pharmacy or drugstore pharmacy. Three (3) Days Before Your Colonoscopy ? Do NOT eat high-fiber foods - such as popcorn, beans, seeds (flax, sunflower, quinoa), multigrain bread, nuts, salad/vegetables, or fresh and dried fruit. One (1) Day Before Your Colonoscopy Only drink clear liquids the ENTIRE DAY before your colonoscopy. Do NOT eat any solid foods. Drink at least 8 ounces of clear liquids every hour after waking up. The clear liquids you can drink include: ? Water, apple, or white grape juice; broth; coffee or tea (without milk or creamer); clear carbonated beverages such as balta diallo or lemon-confederated colville soda; Gatorade or other sports drinks (not red); Morro- Aid or other flavored drinks (not red). You may eat plain jello or other gelatins (not red) or popsicles (not red). Do NOT drink alcohol on the day before or the day of the procedure. When to Mix and Drink Your Bowel Prep Follow the instructions on the label. After mixing, place the solution in the refrigerator for a couple of hours before drinking. You may add the flavor pack that came with the bowel preparation. Do NOT add ice, sugar or any flavorings to the solution. Morning Appointment (Before 12 noon) Step 1: ? Start drinking the bowel preparation at 6 PM the evening before your colonoscopy. Drink an 8-oz glass of bowel preparation every 10 minutes for a total of 8 glasses. ? You may continue to drink clear liquids until bedtime. Step 2: The day of the colonoscopy (4 hours before your exam). ? Drink an 8-oz glass of bowel preparation every 10 minutes for a total of 8 glasses. ? You may continue to drink clear liquids up to 2 hours before your exam. If you take aspirin, take it and ALL other prescribed medicines with a sip of water on the day of your colonoscopy. Afternoon Appointment (After 12 noon) ? Start drinking the bowel preparation at 6 AM the day of your colonoscopy. Drink an 8-oz glass of bowel preparation every 10 minutes. You must finish drinking the solution by 9 AM. ? You may continue to drink clear liquids up to 2 hours before your exam. If you take aspirin, take it and ALL other prescribed medicines with a sip of water on the day of your colonoscopy. Visit Notes: >> Gudelia Lemus JEREMY Mon Sep 18, 2018 1:18 PM Status: Signed REVIEW OF SYSTEMS: General: The patient denies fatigue, denies weight loss, denies weight gain, denies feeling hot, and denies feelings of cold. Eyes: The patient denies glaucoma, denies eye injury/surgery, wears glasses or contacts. Ear/Nose/Throat: The patient denies allergies, denies hayfever, denies ear infections, and denies bloody noses. Cardiovascular: The patient denies chest pain, denies heart disease, denies high blood pressure,denies cardiac stent, denies prior heart attack, denies irregular heart beat, denies high cholesterol, denies poor circulation, denies heart failure, other cardiac issues, denies claudication, denies cold feet, denies peripheral arterial stent. Respiratory: The patient denies tuberculosis, denies pneumonia, denies frequent cough, denies pulmonary embolism, denies shortness of breath, and denies coughing up blood. Gastrointestinal: The patient denies difficulty swallowing, denies acid reflux, denies ulcers, denies vomiting, denies jaundice/hepatitis, denies gallbladder problems, denies black or tarry stools, denies hemorrhoids, denies bleeding from rectum, denies diverticulitis, denies constipation, denies diarrhea, denies loss of stool control, and denies hernias. Kidney/Bladder: The patient denies kidney stones, denies urine infections, and denies bloody urine. Skin: The patient NOTES a history of skin cancer, denies bleeding/changing moles, and denies a history of skin rash. Neurologic: The patient denies a history of epilepsy/convulsions, denies headaches, denies head/spinal injuries, and denies stroke/TIA. Psychiatric: The patient denies psychiatric medications, denies depression, and denies voices, denies substance abuse. Endocrine: The patient denies thyroid disorders, denies diabetes, and denies hormonal problems. Hematologic: The patient denies a history of bruising, denies bleeding, and denies anemia, denies blood clots. Infections: The patient denies a history of measles and mumps, denies rheumatic fever, and denies sexually transmitted diseases. Musculoskeletal: The patient denies back pain/injury, denies back problems, denies sciatica, denies knee/foot trouble, denies arthritis, or denies gout. When was patient's last Mammogram screening? N/A Last Colonoscopy: 04/2008 Gudelia Mariah LUNA Prescriptions ordered this encounter Disp Refills Start End PEG 3350-ELECTROLYTES 236 GRAM-22.74* 1 Spencer* 0 09/18/2018 09/18/2018 Route: ORAL Sig: Take 4,000 mL by mouth one time only for 1 dose. Refer to printed prep instructions from your doctor. Encounter Status:Closed by MD KAVYA BONNER on 09/22/18 ECHO, COMPLETE W/ Observed: 07/27/2018 Status: F Source: [place] CONTRAST 4:56 PM [facility] REPOSITORY [facility] Cardiovascular Services [address] [place] [id number] Echo Complete W/ Contrast 07/27/18 0853 MR#: [id number] Acct: [id number] Name: SAMYCEM Jr. Rep #: [id number] : 1955 63 From: Christofer Martin MD Attending Dr: Christofer Martin MD Status: REG CLI Ordering Dr: Christofer Martin MD Date: 07/27/18 Location: [facility] Sex: M C Admitted: Reason For Study: HTN Procedure This was a 2D Doppler, Color Flow transthoracic echocardiogram. The study was technically difficult. Contrast injection was performed. Exam performed in department. Left Ventricle Normal LV size. The estimated ejection fraction is 55 %. Stage 1 diastolic dysfunction. No regional wall motion abnormalities noted. Right Ventricle Normal RV size. ICD or pacer leads identified within the right ventricle. Normal systolic function. Atria The left atrium is mildly enlarged. Normal right atrium. Mitral Valve Normal mitral valve. Tricuspid Valve Normal tricuspid valve. Aortic Valve Normal aortic valve. Trisinus/trileaflet aortic valve. Pulmonic Valve Normal pulmonic valve. Great Vessels Normal aortic root. The pulmonary artery is normal size. Normal inferior vena cava. Pericardium/Pleural No pericardial effusion. MMode/2D Measurements AND Calculations LVIDd: 4.4 cm IVSd: 1.8 cm Ao root diam: 4.3 cm LVIDs: 3.6 cm LVPWd: 1.1 cm FS: 17.5 % LAV(MOD-bp): 73.9 ml LVAd ap4: 32.5 cm2 SV(MOD-sp4): 62.7 ml LAV(MOD-bp) Indexed: 83.8 ml/m2 EDV(MOD-sp4): 116.0 ml LAV(MOD-sp2): 65.6 ml EDV(sp4-el): 119.5 ml LAV(MOD-sp4): 77.2 ml LVAs ap4: 22.0 cm2 ESV(MOD-sp4): 53.3 ml ESV(sp4-el): 55.2 ml EF(MOD-sp4): 54.1 % EF(sp4-el): 53.8 % SV(sp4-el): 64.3 ml LA A4 area: 24.1 cm2 Time Measurements MV dec time: 0.33 sec Doppler Measurements AND Calculations MV E max derik: 49.1 cm/sec Lat Peak E' Derik: 4.0 cm/sec Med Peak E' Derik: 3.2 cm/sec MV A max derik: 76.5 cm/sec E/E' lat: 12.3 E/E' med: 15.2 MV E/A: 0.64 MV V2 max: 78.3 cm/sec MV P1/2t max derik: 45.3 cm/sec Ao V2 max: 123.8 cm/sec MV max P.5 mmHg MV P1/2t: 120.7 msec Ao max P.1 mmHg MV V2 mean: 35.8 cm/sec MV dec slope: 109.9 cm/sec2 Ao V2 mean: 77.4 cm/sec MV mean P.62 mmHg MVA(P1/2t): 1.8 cm2 Ao mean P.9 mmHg MV V2 VTI: 21.7 cm Ao V2 VTI: 27.1 cm LV V1 max: 101.1 cm/sec PA V2 max: 82.8 cm/sec TR max derik: 227.4 cm/sec LV V1 max P.1 mmHg TR max P.7 mmHg LV V1 mean P.9 mmHg LV V1 mean: 61.6 cm/sec LV V1 VTI: 23.7 cm Interpretation Summary Normal LV size. The estimated ejection fraction is 55 %. Stage 1 diastolic dysfunction. The left atrium is mildly enlarged. Contrast injection was performed. Compared to previous study, the left ventricular systolic function has improved.. Ordering Physician: Christofer Martin Referring Physician: MELINDA MAO Performed By: Peewee Brown RCS 07/27/181654 Date Christofer Martin MD CC: Christofer Martin MD; Melinda Mao MD Date Dictated: 07/27/18852 Date Transcribed: 07/27/181654 [place]: Signed LIVER PROFILE Collected: 2018 Status: F Source: [place] 9:48 AM [facility] REPOSITORY TYPE CODE TESTS RESULT OUT OF RANGE REFERENCE UNITS LAB L501.1500 6.4-8.2 g/dL Normal T PROT 8.0 LAB L501.1800 3.2-5.0 g/dL Normal ALB 3.8 LAB L501.1950 2.2-4.2 g/dL Normal GLOB 4.2 LAB L501.4100 15-37 U/L Normal AST 31 LAB L501.4305 45-117 U/L Normal ALK P 65 LAB L501.4405 16-61 U/L Normal ALT 52 LAB L501.4600 0.20-1.00 mg/dL Normal T BILI 0.70 LAB L501.4700 0.00-0.30 mg/dL Normal D BILI 0.12 Performed By: #### L500.3400, L500.4100 #### [facility] [address]. [place], [place], [id number] LIPID PROFILE Collected: 2018 Status: F Source: [place] 9:48 AM [facility] REPOSITORY TYPE CODE TESTS RESULT OUT OF RANGE REFERENCE UNITS LAB L501.4900 200 mg/dL Normal CHOL 130 Result Comment: <200 mg/dL Desirable 200-240 mg/dL Borderline >240 mg/dL High Risk LAB L501.5000 mg/dL High TRIG 437 Result Comment: The drugs N-Acetylcysteine and Metamizole may falsely depress this assay. TRIGLYCERIDE IS GREATER THAN 400 mg/dL. LDL RESULT IS INVALID AND WILL NOT BE REPORTED. Serum Triglycerides Reference Interval Normal <150 mg/dL Borderline high 150 - 199 mg/dL High 200 - 499 mg/dL Very High > or = 500 mg/dL LAB L501.6400 mg/dL Low HDL 24 Result Comment: The drugs N-Acetylcysteine and Metamizole may falsely depress this assay. Reference Range HDL <40 mg/dL Low HDL Cholesterol HDL >or= 60 mg/dL High HDL Cholesterol LAB L501.6500 0-130 mg/dL Test Normal not performed LDL LAB L501.6600 5-40 mg/dL Test Normal not performed VLDL Performed By: #### L500.3400, L500.4100 #### [facility] [address] [place], [address] CARDIOLOGY VISIT Observed: 2018 Status: F Source: [place] REPORT 9:33 AM [facility] REPOSITORY [facility] [address] [place] [address] OFFICE VISIT Date of Service: 07/13/18 MR#: [id number] Acct: [id number] Name: CEM PABLO . Rep #: [id number] : 1955 Provider: Christofer Martin MD Age/Sex: 63/M Location: [facility] [place] Status: Signed HPI HPI Chief Complaint: Follow up Details: CEM PABLO, is a 63 M who presents to the office today for a follow-up visit. 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 As you know his ejection fraction is improved he denies any chest pain or shortness breath or paroxysmal nocturnal dyspnea pedal edema is been compliant with all his medications. He has not had any defibrillator chart discharges. He continues to follow-up in our pacemaker clinic. His physical exam today demonstrates normal blood pressure regular rate and rhythm and no pedal edema. 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 Accompanied by: none Is patient in pain?: No Allergies phenobarbitol Allergy (Uncoded 07/13/18 09:12) blisters Medications carvedilol 12.5 mg tablet 12.5 mg PO BID #60 tab 02/20/18 [Rx Confirmed 07/13/18] aspirin 81 mg tablet,delayed release 81 mg PO DAILY 07/13/18 [History Confirmed 07/13/18] lisinopril 20 mg tablet 20 mg PO DAILY 07/13/18 [History Confirmed 07/13/18] pravastatin 40 mg tablet 40 mg PO DAILY 07/13/18 [History Confirmed 07/13/18] PFSH Medical History Essential (primary) hypertension (Chronic) HLD (hyperlipidemia) (Chronic) Paroxysmal ventricular tachycardia (Chronic) Primary idiopathic hypertrophic cardiomyopathy (Chronic) Left bundle-branch block (Chronic) Biventricular implantable cardioverter-defibrillator in situ (Chronic) Surgical History Hx of knee surgery (Resolved) History of carpal tunnel surgery (Resolved) Family History Father Cancer CAD (coronary artery disease) Mother No problems noted. Sister No problems noted. Social History Smoking Status: Former smoker alcohol intake: never ROS Const Const: Negative for fatigue, weakness, night sweats, excessive sweating, frequent falls, headache(s) or daytime sleepiness Eyes Eyes: Negative for loss of peripheral vision, transient loss of vision, blind spots, double vision or blurry vision ENT ENT: Negative for headache(s), dizziness, balance problems, Nosebleed/epistaxis, tongue swelling or lip swelling Cardio Chest Pain: No Palpitations: No Edema: None Muscle aches with walking: None Resp Respiratory: Negative for SOB at rest, SOB orthopnea\SOB lying down, Cough, paroxysmal nocturnal dyspnea or SOB with activity GI GI: Negative nausea, vomiting, heartburn, black,tarry stools or bright, red blood in stools : Negative for hematuria Musc Musc: Negative for balance problems, muscle aches/ myalgia, muscle weakness or joint pain Skin Skin: Negative non-healing lesions, unusual bruising or rash Neuro Neuro: Negative for weakness, frequent falls, headache(s), double vision, dizziness, lightheadedness, orthostatic symptoms, blurry vision or lack of coordination Dom Hematologic/Lymphatic: Negative for easy bruising or easy bleeding Endo Endo: Negative for fatigue, excessive sweating, cold intolerance, heat intolerance, increased thirst/drinking or hair loss Psych Psych: Negative for anxiety or depression Allergy Allergy/Immunology: Negative for throat swelling, Negative for tongue swelling, Negative for hives, Negative for rash, Negative for lip swelling Cardiology Exam Const Appearance: cooperative, healthy appearing, well developed, well groomed and no acute distress Nutritional Appearance: well nourished and average body habitus Orientation: alert, awake and oriented x3 Head Head: normal to inspection, normocephalic and atraumatic Ears: hearing grossly normal bilaterally and external ears normal Nose: external nose normal, nasal mucous membranes and turbinates normal, nares normal, septum normal, no nasal discharge Face and Sinus: face symmetric Mouth: oral mucosae normal, tongue normal, oropharynx normal and moist mucous membranes Teeth and gingiva: dentition normal Throat: posterior oropharynx normal, tonsils normal and uvula midline Eyes General: appearance normal, both eyes and all related structures Eyelids: eyelids normal Conjunctivae: conjunctivae normal Pupils: PERRL, normal by confrontation and accommodation normal EOM: EOM intact bilaterally Neck Neck: normal visual inspection, trachea midline and no JVD JVD: +5 Carotids: normal carotid upstroke and bounding pulses Chest Chest inspection: normal inspection of the chest, symmetric chest movement and normal respiratory effort Auscultation: Bilateral: Clear to Auscultation Cardio Palpation: normal PMI Rate: regular rate Rhythm: regular rhythm Heart sounds: S1 normal, S2 normal and normal, physiologic split S2; negative rub, gallop or murmur GI GI: normal to inspection, soft, no hepatosplenomegaly and bowel sounds present Neuro General: alert, awake, oriented x3, no focal sensory deficit, gait normal and moves all extremities Skin Skin: no rashes or lesions noted Extremities Pulses: Normal: Right Femoral Pulse, Left Femoral Pulse, Right Dorsalis Pedis Pulse, Left Dorsalis Pedis Pulse, Right Posterior Tibial Pulse, Left Posterior Tibial Pulse, Right Radial Pulse, Left Radial Pulse Lower Extremity Edema: None: Bilateral Musculoskel Musculoskeletal: No joint tenderness Psych Psychological: normal affect Assessment AND Plan 1. Essential (primary) hypertension I10 Plan His blood pressure is under excellent control on this particular time I would not suggest we make any changes remain on the beta-fredis as well as the ELIESER inhibitor. Orders Orders: 2. HLD (hyperlipidemia) E78.5 Plan He is on lipid-lowering medication. He has not had a recent lipid profile done and I will suggest that we obtain one at this particular time. Depending on the findings further recommendations will be made. Orders Orders: 3. Paroxysmal ventricular tachycardia I47.2 Plan He has a previous history of paroxysmal ventricular tachyarrhythmia but from his pacemaker interrogation does not appear that he has had any recurrence of the above. 4. Primary idiopathic hypertrophic cardiomyopathy I42.2 Plan He has a primary hypertrophy. He lasts echocardiographic evaluation was 6 years ago. I would suggest that we repeat the above to reassess his left ventricular ejection fraction. 5. Biventricular implantable cardioverter-defibrillator in situ Z95.810 Plan He does have a biventricular defibrillator in place. His last defibrillator check was in May 2018. He does have adequate battery longevity noted. No other changes are present he will continue to follow-up in our clinic. There have been no switches as well as no VT episodes. 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) Coding Level of Care Code Off vis,est,level 3 Diagnoses Essential (primary) hypertension I10 HLD (hyperlipidemia) E78.5 Paroxysmal ventricular tachycardia I47.2 Primary idiopathic hypertrophic cardiomyopathy I42.2 Biventricular implantable cardioverter-defibrillator in situ Z95.810 Coding Level of Care Code Off vis,est,level 3 Diagnoses Essential (primary) hypertension I10 HLD (hyperlipidemia) E78.5 Paroxysmal ventricular tachycardia I47.2 Primary idiopathic hypertrophic cardiomyopathy I42.2 Biventricular implantable cardioverter-defibrillator in situ Z95.810 07/13/18 0933 <Electronically signed by Christofer Martin MD> Date Christofer Martin MD Cosigner Signature: Date (if applicable) CC: Melinda Mao MD PACEMAKER CHECK Observed: 06/02/2018 Status: F Source: [place] 6:35 AM [facility] REPOSITORY [facility] [address] [place] [address] Pacemaker Check Date of Service: 06/01/18954 MR#: [id number] Acct: [id number] Name: SAMYCEM Mcfarland Rep #: [id number] : 1955 From: Chela Palomo Age/Sex: 62/M Location: [facility] Status: Signed Billing Codes ICD Device Billing: ICD Dev Prog Eval, Multi 06/01/1857 <Electronically signed by Chela Palomo > Date Chela Palomo 06/02/18 06<Electronically signed by Christofer Martin MD> Cosigner Signature: Date (if applicable) Christofer Martin MD CC: CNCO Observed: 04/27/2018 Status: COMPLETED Source: [place] 12:00 AM [facility] REPOSITORY Letter Text Melinda Mao MD [facility] Cem Bruna Samy [facility] [address] Clinic #: [id number] 04/27/2018 Dear Mr. Marieon, I have received the results of your recent tests. The results of your urinalysis tests were either normal or within the acceptable range. We can discuss this at your next visit. Please do not hesitate to contact me with any questions. Sincerely, Melinda Mao MD [facility] Department electronically signed to expedite mailing URINALYSIS WITH Collected: 04/26/2018 Status: F Source: [facility] 8:28 AM [facility] REPOSITORY TYPE CODE TESTS RESULT OUT OF REFERENCE UNITS RANGE LAB UCOL Yellow Color Yellow LAB [facility] Clear Clarity Clear LAB UGLUC Negative mg/dL Glucose, Urine Negative LAB UBIL Negative Bilirubin, Urine Negative LAB UKET Negative Ketones, Urine Negative LAB USPG 1.005-1.030 Specific [place], Ur 1.023 LAB UHGB Negative Hemoglobin/Blood, Negative Ur LAB UPH 4.5-8.0 pH 5.0 LAB UPROT Negative mg/dL Protein, Urine Negative LAB UUROB Normal Urobilinogen Normal LAB UNITR Negative Nitrites Negative LAB ULKEST Negative Leukest Negative LAB UCOM Comments SEE COMMENT Result Comment: N/A LAB UMCOM Urine SEE Jacques Comment COMMENT Result Comment: N/A LAB UWBC 0-5 /HPF WBC 0-5 LAB URBC 0-3 /HPF RBC 0-3 LAB UCAST 0 /LPF Abnormal Alert Cast SEE COMMENT Result Comment: 1-3 Hyaline Cast LAB UEPI /HPF Epithelial SEE Cells COMMENT Result Comment: Few Squamous Epithelial Cells Performed By: #### UAWMIC #### [facility] [address] [place], [place] [address] XR LUMBAR 3V Observed: 04/25/2018 Status: F Source: [place] AP/LAT/L5-S1 9:39 AM [facility] REPOSITORY * * *Final Report* * * DATE OF EXAM: Apr 25 2018 9:39AM WRX [id number] - XR LUMBAR 3V AP/LAT/L5-S1 / PROCEDURE REASON: Radiculopathy, lumbar region * * * * Physician Interpretation * * * * TECHNIQUE: Lumbar spine, 3 views HISTORY: Radiculopathy, lumbar region COMPARISON: None. RESULTS: AP and lateral views were obtained. There are 5 [id number] lumbar-type vertebrae. Sacroiliac joints unremarkable. Disc space narrowing is noted which is severe posteriorly at L1-2, L2-3 and L3-4. Degenerative endplate and facet changes noted. Mild compression deformity of L1 vertebral body suggests remote fracture. No retropulsion or subluxation. No spondylolysis. Vascular calcifications noted. Tiny < 3 mm calcifications overlie left kidney region, possibly left renal calculi. Overlying mid right abdomen, a 9 mm ovoid calcific density is noted. It is uncertain whether this represents a right renal calculus. This could also represent right ureteral calculus. Phleboliths overlie pelvis. IMPRESSION: 1. Mild compression deformity of L1 vertebral body suggests remote fracture. 2. Degenerative changes of lumbar spine, as described. 3. Tiny < 3 mm calcifications overlie left kidney region, possibly left renal calculi. 4. Overlying mid right abdomen, a 9 mm ovoid calcific density is noted. It is uncertain whether this represents a right renal calculus. This could also represent right ureteral calculus. Retort Forker: WING Transcribe Date/Time: Apr 25 2018 2:34P Dictated by : NORMAN PAPPAS MD This examination was interpreted and the report reviewed and electronically signed by: NORMAN PAPPAS MD on Apr 25 2018 2:36PM EST [id number] Observed: 04/25/2018 Status: COMPLETED Source: [place] 9:30 AM [facility] REPOSITORY HNO ID: [id number] Author: Brenda Chong (Rt) Thomas Mohr Service: (none) Author Type: Housing Director Type: Progress Notes Filed: 04/25/2018 9:39 AM Note Text: Radiology Service Progress Note PATIENT NAME: Cem Pablo DATE OF SERVICE: April 25, 2018 TIME: 9:30 AM PATIENT IDENTITY VERIFICATION COMPLETED USING TWO (2) METHODS: Patient confirmed name verbally and Date of . PATIENT GENDER DATA: Male PATIENT RELEVANT IMPLANT DATA REVIEWED: Not Applicable RADIOLOGY DEPARTMENT: General X-ray: Exam(s) Completed: Spine X-Ray(s): Lumbar AP / LAT / L5-S1 PERIPHERAL IV DATA: Not applicable SIGNED BY: RT Hector April 25, 2018 9:30 AM PROGRESS Observed: 04/24/2018 Status: COMPLETED Source: [place] 11:29 AM [facility] REPOSITORY HNO ID: [id number] Author: Melinda Mao Service: (none) Author Type: Physician Type: Progress Notes Filed: 04/24/2018 11:44 AM Note Text: Patient presents with: Numbness: left lower leg for about 3 week interfers with walking at times started moving a dog house Toothache: left buttocks off and on for about 3 week was given muscle relaxer but didn't seem to help HPI: Patient presents today for office visit for acute visit. Complains of numbness in left leg. Doing some exercises. Started after moving dog houses. Using muscle relaxers. Mildly improved. Numb over guillermo. No issues controlling bowel or bladder. Using heat. Was using advil but not working. He says it feels like a toothache. Leg feels weak on and off. Was on prednisone. MEDICATIONS: Current Outpatient Prescriptions: hydroCHLOROthiazide (HYDRODIURIL, ESIDRIX) 25 mg tablet Take 1 tablet by mouth once daily. lisinopril (ZESTRIL, PRINIVIL) 20 mg tablet Take 1 tablet by mouth twice daily. doxazosin (CARDURA) 1 mg tablet Take 1 tablet by mouth once daily. carvedilol (COREG) 12.5 mg tablet Take 12.5 mg by mouth twice daily with meals. aspirin, enteric coated (ADULT LOW DOSE ASPIRIN) 81 mg EC tablet Take 1 tablet by mouth once daily. pravastatin 40 mg tablet Take 40 mg by mouth once daily. No current facility-administered medications for this visit. ALLERGIES: ALLERGIES Allergen Reactions - Phenobarbital Hives PAST MEDICAL HISTORY Diagnosis Date - Basal cell carcinoma (BCC) of skin of lip 01/14/2018 - Benign neoplasm of colon - BPH (benign prostatic hyperplasia) - Cardiomyopathy (HCC) Veronica Beckham, ICD - Hematuria negative work up-Dr. Garnett - HTN (hypertension) - Hypercholesteremia PAST SURGICAL HISTORY Procedure Laterality Date - COLONOSCOPY W/BX 05/02/08 - PAST SURGICAL HISTORY OF 1974 Left knee surgery - PAST SURGICAL HISTORY OF 02/2012 ICD placement at [facility]- done by Dr Serrano - PAST SURGICAL HISTORY OF 2010 right carpal tunnel release - PAST SURGICAL HISTORY OF 07/26/2013 Lumbar (Dr. Mcbride) FAMILY HISTORY Problem Relation Age of Onset - cirrhosis [OTHER] Mother - Cancer Father lung - Heart Father - COPD Father - Diabetes Sister Social History Marital status: Spouse name: Years of education: Number of children: Social History Main Topics Smoking status: Former Smoker Packs/day: 1.50 Years: 0.00 Types: Cigarettes Quit date: 07/26/2011 Smokeless tobacco: Never Used Alcohol use: No Drug use: No Reviewed current medications, allergies, past medical history, surgical history, family history and social history today. REVIEW OF SYSTEMS All other reviewed and negative other than HPI. VITALS: BP 118/80 Pulse 76 Temp 36.3 ?C (97.3 ?F) (Tympanic) Resp 20 Wt 108.4 kg (239 lb) BMI 30.69 kg/m? Last 4 Encounter Wt Readings: Date: Wt: 04/24/2018 108.4 kg (239 lb) 01/14/2018 108.9 kg (240 lb) 04/28/2017 105.2 kg (232 lb) 09/16/2016 107 kg (236 lb) PHYSICAL EXAMINATION: General appearance: Well appearing, alert, in no acute distress, well-hydrated, well nourished. Skin: Skin color, texture, turgor normal, no suspicious rashes or lesions BACK: Normal curvature of spine. No spine tenderness. Straight leg test negative. Deep tendon reflexes 2+/4 at patellas. Normal lower extremity strength. Extremities: No deformities, edema, skin discoloration, clubbing or cyanosis. Good capillary refill. ASSESSMENT/PLAN: 1. Lumbar radiculopathy - ICD9: 724.4, ICD10: M54.16 (primary diagnosis) - Red flags for re-assessment reviewed with patient in detail. - begin physical therapy - XR LUMBAR GENERAL 3V AP/LAT/L5-S1 - CONSULT TO PHYSICAL THERAPY 2. Essential hypertension - ICD9: 401.9, ICD10: I10 - HYDROCHLOROTHIAZIDE 25 MG TABLET Melinda Mao MD CNOV Observed: 04/24/2018 Status: COMPLETED Source: [place] 10:00 AM [facility] REPOSITORY [facility] CEM PABLO ([id number]) 1955 M Date Time Provider Department 04/24/18 10:00 AM MELINDA MAO During your visit today, we recorded the following information about you: Temperature Pulse Respiration Blood pressure 97.3 degrees 76/minute 20/minute 118/80 Weight 108.4 kg Melinda Mao MD 04/24/2018 11:44 AM Signed Patient presents with: Numbness: left lower leg for about 3 week interfers with walking at times started moving a dog house Toothache: left buttocks off and on for about 3 week was given muscle relaxer but didn't seem to help HPI: Patient presents today for office visit for acute visit. Complains of numbness in left leg. Doing some exercises. Started after moving dog houses. Using muscle relaxers. Mildly improved. Numb over guillermo. No issues controlling bowel or bladder. Using heat. Was using advil but not working. He says it feels like a toothache. Leg feels weak on and off. Was on prednisone. MEDICATIONS: Current Outpatient Prescriptions: hydroCHLOROthiazide (HYDRODIURIL, ESIDRIX) 25 mg tablet Take 1 tablet by mouth once daily. lisinopril (ZESTRIL, PRINIVIL) 20 mg tablet Take 1 tablet by mouth twice daily. doxazosin (CARDURA) 1 mg tablet Take 1 tablet by mouth once daily. carvedilol (COREG) 12.5 mg tablet Take 12.5 mg by mouth twice daily with meals. aspirin, enteric coated (ADULT LOW DOSE ASPIRIN) 81 mg EC tablet Take 1 tablet by mouth once daily. pravastatin 40 mg tablet Take 40 mg by mouth once daily. No current facility-administered medications for this visit. ALLERGIES: ALLERGIES Allergen Reactions - Phenobarbital Hives PAST MEDICAL HISTORY Diagnosis Date - Basal cell carcinoma (BCC) of skin of lip 01/14/2018 - Benign neoplasm of colon - BPH (benign prostatic hyperplasia) - Cardiomyopathy (HCC) Veronica Beckham, ICD - Hematuria negative work up-Dr. Garnett - HTN (hypertension) - Hypercholesteremia PAST SURGICAL HISTORY Procedure Laterality Date - COLONOSCOPY W/BX 05/02/08 - PAST SURGICAL HISTORY OF 1974 Left knee surgery - PAST SURGICAL HISTORY OF 02/2012 ICD placement at [facility]- done by Dr Serrano - PAST SURGICAL HISTORY OF 2010 right carpal tunnel release - PAST SURGICAL HISTORY OF 07/26/2013 Lumbar (Dr. Mcbride) FAMILY HISTORY Problem Relation Age of Onset - cirrhosis [OTHER] Mother - Cancer Father lung - Heart Father - COPD Father - Diabetes Sister Social History Marital status: Spouse name: Years of education: Number of children: Social History Main Topics Smoking status: Former Smoker Packs/day: 1.50 Years: 0.00 Types: Cigarettes Quit date: 07/26/2011 Smokeless tobacco: Never Used Alcohol use: No Drug use: No Reviewed current medications, allergies, past medical history, surgical history, family history and social history today. REVIEW OF SYSTEMS All other reviewed and negative other than HPI. VITALS: BP 118/80 Pulse 76 Temp 36.3 ?C (97.3 ?F) (Tympanic) Resp 20 Wt 108.4 kg (239 lb) BMI 30.69 kg/m? Last 4 Encounter Wt Readings: Date: Wt: 04/24/2018 108.4 kg (239 lb) 01/14/2018 108.9 kg (240 lb) 04/28/2017 105.2 kg (232 lb) 09/16/2016 107 kg (236 lb) PHYSICAL EXAMINATION: General appearance: Well appearing, alert, in no acute distress, well-hydrated, well nourished. Skin: Skin color, texture, turgor normal, no suspicious rashes or lesions BACK: Normal curvature of spine. No spine tenderness. Straight leg test negative. Deep tendon reflexes 2+/4 at patellas. Normal lower extremity strength. Extremities: No deformities, edema, skin discoloration, clubbing or cyanosis. Good capillary refill. ASSESSMENT/PLAN: 1. Lumbar radiculopathy - ICD9: 724.4, ICD10: M54.16 (primary diagnosis) - Red flags for re-assessment reviewed with patient in detail. - begin physical therapy - XR LUMBAR GENERAL 3V AP/LAT/L5-S1 - CONSULT TO PHYSICAL THERAPY 2. Essential hypertension - ICD9: 401.9, ICD10: I10 - HYDROCHLOROTHIAZIDE 25 MG TABLET Melinda Mao MD Referring Provider: SELF [200] Allergies As of Date: 04/24/2018 Noted Allergy Reaction PHENOBARBITAL 04/25/2013 4 - Hives Date Reviewed: 04/24/2018 Reviewed by: Ivonne Iglesias LPN - Fully Assessed Reason for Visit: Numbness [75] Cmt: left lower leg for about 3 week interfers with walking at times started moving a dog house Toothache [1289] Cmt: left buttocks off and on for about 3 week was given muscle relaxer but didn't seem to help Reason For Visit History Recorded Primary Visit Diagnosis:Lumbar radiculopathy [M54.16] Other Visit Diagnosis:Essential hypertension [I10] Order(s):hydroCHLOROthiazide (HYDRODIURIL, ESIDRIX) 25 mg tabletTake 1 tablet by mouth once daily.Disp: 90 tabletRfl: 0 XR LUMBAR GENERAL 3V AP/LAT/L5-S1 [9090640] Order #: [id number] FUTURE CONSULT TO PHYSICAL THERAPY [6445] Order #: [id number]: 1 Prescriptions as of 04/24/2018 Sig: HYDROCHLOROTHIAZIDE 25 MG TAB* Take 1 tablet by mouth once d* LISINOPRIL 20 MG TABLET Take 1 tablet by mouth twice * DOXAZOSIN 1 MG TABLET Take 1 tablet by mouth once d* CARVEDILOL 12.5 MG TABLET Take 12.5 mg by mouth twice d* ASPIRIN 81 MG TABLET,DELAYED * Take 1 tablet by mouth once d* PRAVASTATIN 40 MG TABLET Take 40 mg by mouth once deana* Problem List As Of Date 04/24/2018 Noted Resolved BENIGN NEOPLASM LG BOWEL [D12.6] INVALID FOR* Cervical spondylosis without myelopathy [M47.81*INVALID FOR* Displacement of cervical intervertebral disc wi*INVALID FOR* Spinal stenosis in cervical region [M48.02] INVALID FOR* Hypertrophic cardiomyopathy [I42.2] INVALID FOR* HTN (hypertension) [I10] INVALID FOR* Arthrodesis status [Z98.1] INVALID FOR* Cervicalgia [M54.2] INVALID FOR* Elevated glucose level [R73.09] INVALID FOR* Hypercholesteremia [E78.00] Basal cell carcinoma (BCC) of skin of lip [C44.*INVALID FOR* More... Prescriptions ordered this encounter Disp Refills Start End HYDROCHLOROTHIAZIDE 25 MG TABLET 90 t* 0 04/24/2018 Route: ORAL Sig: Take 1 tablet by mouth once daily. Medications Discontinued During This Encounter hydroCHLOROthiazide (HYDRODIURIL, ES* 90 t* 0 04/18/2018 04/24/2018 Route: ORAL Sig: Take 1 tablet by mouth once daily. Disc: Reason for discontinue is not on file. Encounter Status:Closed by MELINDA MAO MD on 04/24/18 PACEMAKER CHECK Observed: 03/07/2018 Status: F Source: [place] 4:04 PM [facility] REPOSITORY [facility] [address] [place] [address] Pacemaker Check Date of Service: 02/23/18 0838 MR#: [id number] Acct: [id number] Name: CEM PABLO Jr. Rep #: [id number] : 1955 From: Chela Palomo Age/Sex: 62/M [place] [facility] [place] Status: Signed Comments Summary Comments: Bi-VICD Evaluation: Interrogation shows no VT/VF episodes and 15 MS episodes, <1% total time since 11/17/17. Stored e-grams show atrial flutter with appropriate MS. Left pectoral pocket/incision w/o s/s of infection or erosion. Pt offers no cardiac complaints. Presenting rhythm shows P synchronous Bi-Vpaced @ 74 ppm. Bi-Vpaced = >99%. No Alerts noted. Battery longevity approx. 1.1 yrs. Lead impedances, atrial sensing and atrial and RV/LV pace/sense thresholds remain stable. No parameter changes made. Counters cleared. Next f/u appt scheduled for in 3 mos. 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 Joao Powell Patient Characteristics Patient Substrate: Ischemic cardiomyopathy Ejection fraction %: 45 to 49 (06/19/2012) By: Echo Underlying rhythm: Sinus rhythm Pacemaker Dependent: No Device Characteristics Device: Biventricular Type: Implantable defibrillator Remote Follow-Up: No Device Physical Exam Yes Incision well healed Leads Lead #1 Student Finance Advisor Lead 1: St. Fred Model Lead 1: 2088TC/52 Serial# Lead 1: [id number] Date Implanted Lead 1: 03/29/12 Position Lead 1: RA Lead #2 Student Finance Advisor Lead 2: St. Fred Model Lead 2: 7122Q/58 Serial# Lead 2: [id number] Date Implanted Lead 2: 03/29/12 Position Lead 2: RV Lead #3 Student Finance Advisor Lead 3: Guidant Model Lead 3: [id number] Serial# Lead 3: [id number] Date Implanted Lead 3: 03/29/12 Position Lead 3: LV Diagnostics Pacing % RA Pacin % RV Pacin % LV Pacin Mode Switching Total # Episodes: 15 % Mode switched: 1 Arrhythmias VF Episodes: 0 Fast VT Episodes: 0 Slow VT Episodes: 0 Non-Sust Episodes: 0 Measurements Battery Charge Time (Sec): 9.8 Battery %: 20 Predicted Remaining Longevity (months or years): 1.1 years RA Measurements Signal Amplitude (mV): 2.8 Impedance (Ohms): 380 Threshold Voltage: 0.75 @ PW(ms): 0.5 RV Measurements Signal Amplitude (mV): 7.3 Impedance (Ohms): 390 Threshold Voltage: 1.0 @ PW(ms): 0.5 Shock Impedance (Ohms): 68 LV Measurements Impedance (Ohms): 380 Threshold Voltage: 1.6 @ PW(ms): 0.5 Tachy Settings VF Therapies VF Therapy Status On On On On On On Energy 30 40 40 40 40 40 Pathway ATP: During charging on FVT Therapies FVT Therapy Status On On On On On On VT Therapies FVT Therapy Status Off Off Off Off Off Off Comments: Joaquin Settings Joaquin Settings Pacemaker Mode DDD Lower Rate Limit (bpm) 60 Hysteresis Rate (bpm) Max Track Rate (bpm) 120 Max Sensor Rate (bpm) Max AV Delay (msec) 150 Max PV Delay (msec) Max PVARP (msec) Output/Sensing V/PW (ms) 1.625/0.5 2.0/0.5 2.625/0.5 Sensitivity RA RV LV Comments: Billing Codes ICD Device Billing: ICD Dev Prog Eval, Multi Assessment AND Plan Problems 1. Biventricular implantable cardioverter-defibrillator in situ Z95.810 2. Primary idiopathic hypertrophic cardiomyopathy I42.2 3. Paroxysmal ventricular tachycardia I47.2 4. Left bundle-branch block I44.7 03/06/18 1758 <Electronically signed by Chela Palomo > Date Chela Palomo 03/07/18 1604<Electronically signed by Christofer Martin MD> Vince Signature: Date (if applicable) Christofer Martin MD CC: PROGRESS Observed: 01/14/2018 Status: COMPLETED Source: TON 11:06 AM [facility] REPOSITORY O ID: [id number] Author: Melinda Mao Service: (none) Author Type: Physician Type: Progress Notes Filed: 01/14/2018 11:29 AM Note Text: Patient presents with: Blood Pressure HPI: Patient presents today for office visit for follow up. HTN: Patient is compliant with meds Ye Denies side effects: mild fatigue. Chest pain: No. Dyspnea: No. Edema: No. Palpitations: No. Syncope: No. Headache: No. Dizziness: No. HYPERLIPIDEMIA: Patient is taking medications: Yes. Patient is watching diet: Yes. Patient denies myalgias: Yes. Patient denies gi upset: Yes CARDIO: doing well. Still seeing cardiology. ICD has not fired. Reviewed labs. Trigs slightly up and hdl slightly low. Derm: had mohs surgery for facial basal cell. Discussed sun exposure. MEDICATIONS: Current Outpatient Prescriptions: hydroCHLOROthiazide (HYDRODIURIL, ESIDRIX) 25 mg tablet Take 1 tablet by mouth once daily. doxazosin (CARDURA) 1 mg tablet Take 1 tablet by mouth once daily. lisinopril (ZESTRIL, PRINIVIL) 20 mg tablet Take 1 tablet by mouth twice daily. carvedilol (COREG) 12.5 mg tablet Take 12.5 mg by mouth twice daily with meals. aspirin, enteric coated (ADULT LOW DOSE ASPIRIN) 81 mg EC tablet Take 1 tablet by mouth once daily. pravastatin 40 mg tablet Take 40 mg by mouth once daily. No current facility-administered medications for this visit. ALLERGIES: ALLERGIES Allergen Reactions - Phenobarbital Hives PAST MEDICAL HISTORY Diagnosis Date - Benign neoplasm of colon - BPH (benign prostatic hyperplasia) - Cardiomyopathy (HCC) Veronica Beckham, ICD - Hematuria negative work up-Dr. Garnett - HTN (hypertension) - Hypercholesteremia PAST SURGICAL HISTORY Procedure Laterality Date - COLONOSCOPY W/BX 05/02/08 - PAST SURGICAL HISTORY OF 1974 Left knee surgery - PAST SURGICAL HISTORY OF 02/2012 ICD placement at [facility]- done by Dr Serrano - PAST SURGICAL HISTORY OF 2010 right carpal tunnel release - PAST SURGICAL HISTORY OF 07/26/2013 Lumbar (Dr. Mcbride) FAMILY HISTORY Problem Relation Age of Onset - cirrhosis [OTHER] Mother - Cancer Father lung - Heart Father - COPD Father - Diabetes Sister Social History Marital status: Spouse name: Years of education: Number of children: Social History Main Topics Smoking status: Former Smoker Packs/day: 1.50 Years: 0.00 Types: Cigarettes Quit date: 07/26/2011 Smokeless status: Never Used Alcohol use: No Drug use: No Reviewed current medications, allergies, past medical history, surgical history, family history and social history today. REVIEW OF SYSTEMS GI: Negative for blood in stools or black stools : Negative for dysuria, frequency and incontinence All other reviewed and negative other than HPI. HEALTH MAINTENANCE: Reviewed health maintenance issues today and recommended the following in detail. There are no preventive care reminders to display for this patient. VITALS: BP 132/72 Pulse 68 Resp 14 Wt 108.9 kg (240 lb) BMI 30.81 kg/m2 Last 4 Encounter Wt Readings: Date: Wt: 01/14/2018 108.9 kg (240 lb) 04/28/2017 105.2 kg (232 lb) 09/16/2016 107 kg (236 lb) 03/11/2016 106.1 kg (234 lb) PHYSICAL EXAMINATION: General appearance: Well appearing, alert, in no acute distress, well-hydrated, well nourished. Skin: Skin color, texture, turgor normal, no suspicious rashes or lesions Head: Normocephalic, no masses, lesions, tenderness or abnormalities Lungs: Lungs clear to auscultation. No wheezing, rhonchi, rales Heart: RRR without murmur, gallop, or rubs. No ectopy Abdomen: Normal abdominal exam, Abdomen soft, non-tender. Bowel sounds normal. No masses, organomegaly Extremities: No deformities, edema, skin discoloration, clubbing or cyanosis. Good capillary refill. ASSESSMENT/PLAN: 1. Hypercholesteremia - ICD9: 272.0, ICD10: E78.00 (primary diagnosis) - good control - Continue current medication. 2. Basal cell carcinoma (BCC) of skin of lip - ICD9: 173.01, ICD10: C44.01 - call if any issues. 3. Hypertrophic cardiomyopathy (HCC) - ICD9: 425.18, ICD10: I42.2 - call if any issues. 4. Essential hypertension - ICD9: 401.9, ICD10: I10 - good control - Continue current medication(s) - Goal of BP <140/90 Melinda Mao MD RTO in one year and prn. CNOV Observed: 01/14/2018 Status: COMPLETED Source: [place] 11:00 AM [facility] REPOSITORY Office Visit (FAMPWS) CEM PABLO ([id number]) 1955 M Date Time Provider Department 01/14/18 11:00 AM MELINDA MAOWS During your visit today, we recorded the following information about you: Pulse Respiration Blood pressure Weight 68/minute 14/minute 132/72 108.9 kg Melinda Mao MD 01/14/2018 11:29 AM Addendum Patient presents with: Blood Pressure HPI: Patient presents today for office visit for follow up. HTN: Patient is compliant with meds Ye Denies side effects: mild fatigue. Chest pain: No. Dyspnea: No. Edema: No. Palpitations: No. Syncope: No. Headache: No. Dizziness: No. HYPERLIPIDEMIA: Patient is taking medications: Yes. Patient is watching diet: Yes. Patient denies myalgias: Yes. Patient denies gi upset: Yes CARDIO: doing well. Still seeing cardiology. ICD has not fired. Reviewed labs. Trigs slightly up and hdl slightly low. Derm: had mohs surgery for facial basal cell. Discussed sun exposure. MEDICATIONS: Current Outpatient Prescriptions: hydroCHLOROthiazide (HYDRODIURIL, ESIDRIX) 25 mg tablet Take 1 tablet by mouth once daily. doxazosin (CARDURA) 1 mg tablet Take 1 tablet by mouth once daily. lisinopril (ZESTRIL, PRINIVIL) 20 mg tablet Take 1 tablet by mouth twice daily. carvedilol (COREG) 12.5 mg tablet Take 12.5 mg by mouth twice daily with meals. aspirin, enteric coated (ADULT LOW DOSE ASPIRIN) 81 mg EC tablet Take 1 tablet by mouth once daily. pravastatin 40 mg tablet Take 40 mg by mouth once daily. No current facility-administered medications for this visit. ALLERGIES: ALLERGIES Allergen Reactions - Phenobarbital Hives PAST MEDICAL HISTORY Diagnosis Date - Benign neoplasm of colon - BPH (benign prostatic hyperplasia) - Cardiomyopathy (HCC) Veronica Beckham, ICD - Hematuria negative work up-Dr. Garnett - HTN (hypertension) - Hypercholesteremia PAST SURGICAL HISTORY Procedure Laterality Date - COLONOSCOPY W/BX 05/02/08 - PAST SURGICAL HISTORY OF 1974 Left knee surgery - PAST SURGICAL HISTORY OF 02/2012 ICD placement at [facility]- done by Dr Serrano - PAST SURGICAL HISTORY OF 2010 right carpal tunnel release - PAST SURGICAL HISTORY OF 07/26/2013 Lumbar (Dr. Mcbride) FAMILY HISTORY Problem Relation Age of Onset - cirrhosis [OTHER] Mother - Cancer Father lung - Heart Father - COPD Father - Diabetes Sister Social History Marital status: Spouse name: Years of education: Number of children: Social History Main Topics Smoking status: Former Smoker Packs/day: 1.50 Years: 0.00 Types: Cigarettes Quit date: 07/26/2011 Smokeless status: Never Used Alcohol use: No Drug use: No Reviewed current medications, allergies, past medical history, surgical history, family history and social history today. REVIEW OF SYSTEMS GI: Negative for blood in stools or black stools : Negative for dysuria, frequency and incontinence All other reviewed and negative other than HPI. HEALTH MAINTENANCE: Reviewed health maintenance issues today and recommended the following in detail. There are no preventive care reminders to display for this patient. VITALS: BP 132/72 Pulse 68 Resp 14 Wt 108.9 kg (240 lb) BMI 30.81 kg/m2 Last 4 Encounter Wt Readings: Date: Wt: 01/14/2018 108.9 kg (240 lb) 04/28/2017 105.2 kg (232 lb) 09/16/2016 107 kg (236 lb) 03/11/2016 106.1 kg (234 lb) PHYSICAL EXAMINATION: General appearance: Well appearing, alert, in no acute distress, well-hydrated, well nourished. Skin: Skin color, texture, turgor normal, no suspicious rashes or lesions Head: Normocephalic, no masses, lesions, tenderness or abnormalities Lungs: Lungs clear to auscultation. No wheezing, rhonchi, rales Heart: RRR without murmur, gallop, or rubs. No ectopy Abdomen: Normal abdominal exam, Abdomen soft, non-tender. Bowel sounds normal. No masses, organomegaly Extremities: No deformities, edema, skin discoloration, clubbing or cyanosis. Good capillary refill. ASSESSMENT/PLAN: 1. Hypercholesteremia - ICD9: 272.0, ICD10: E78.00 (primary diagnosis) - good control - Continue current medication. 2. Basal cell carcinoma (BCC) of skin of lip - ICD9: 173.01, ICD10: C44.01 - call if any issues. 3. Hypertrophic cardiomyopathy (HCC) - ICD9: 425.18, ICD10: I42.2 - call if any issues. 4. Essential hypertension - ICD9: 401.9, ICD10: I10 - good control - Continue current medication(s) - Goal of BP ANDlt;140/90 Melinda Mao MD RTO in one year and prn. Referring Provider: MELINDA MOA [[id number]] Allergies As of Date: 01/14/2018 Noted Allergy Reaction PHENOBARBITAL 04/25/2013 4 - Hives Date Reviewed: 01/14/2018 Reviewed by: Althea Hennessy LPN - Fully Assessed Reason for Visit: Blood Pressure [15] Primary Visit Diagnosis:Hypercholesteremia [E78.00] Other Visit Diagnoses:Basal cell carcinoma (BCC) of skin of lip [C44.01] Hypertrophic cardiomyopathy (HCC) [I42.2] Essential hypertension [I10] Prescriptions as of 01/14/2018 Sig: HYDROCHLOROTHIAZIDE 25 MG TAB* Take 1 tablet by mouth once d* DOXAZOSIN 1 MG TABLET Take 1 tablet by mouth once d* LISINOPRIL 20 MG TABLET Take 1 tablet by mouth twice * CARVEDILOL 12.5 MG TABLET Take 12.5 mg by mouth twice d* ASPIRIN 81 MG TABLET,DELAYED * Take 1 tablet by mouth once d* PRAVASTATIN 40 MG TABLET Take 40 mg by mouth once deana* Problem List As Of Date 01/14/2018 Noted Resolved BENIGN NEOPLASM LG BOWEL [D12.6] INVALID FOR* Cervical spondylosis without myelopathy [M47.81*INVALID FOR* Displacement of cervical intervertebral disc wi*INVALID FOR* Spinal stenosis in cervical region [M48.02] INVALID FOR* Hypertrophic cardiomyopathy [I42.2] INVALID FOR* HTN (hypertension) [I10] INVALID FOR* Arthrodesis status [Z98.1] INVALID FOR* Cervicalgia [M54.2] INVALID FOR* Elevated glucose level [R73.09] INVALID FOR* Hypercholesteremia [E78.00] Basal cell carcinoma (BCC) of skin of lip [C44.*INVALID FOR* More... Medications Discontinued During This Encounter etodolac (LODINE) 400 mg tablet 30 t* 1 04/28/2017 01/14/2018 Route: ORAL Sig: Take 1 tablet by mouth twice daily. Disc: Course of therapy completed Disposition: Return in about 1 year (around 01/14/2019). Follow-up and Disposition History Recorded Encounter Status:Closed by MELINDA MAO MD on 01/14/18 BASIC METABOLIC Collected: 01/11/2018 Status: F Source: [place] PROFILE (BMP) 8:30 AM [facility] REPOSITORY TYPE CODE TESTS RESULT OUT OF RANGE REFERENCE UNITS LAB L501.0100 74-106 mg/dL High GLU 109 Result Comment: Fasting Glucose result from 100 to 125 mg/dL suggests IMPAIRED HOMEOSTASIS per A.D.A. criteria. Please note revised GLUCOSE reference range effective 2017. LAB L501.1000 7-18 mg/dL Normal BUN 16 LAB L501.1100 0.70-1.30 mg/dL Normal CREAT,SERUM 0.73 Result Comment: The validity of the calculated GFR AND GFRAA in patients over 70 years has not been determined. Clinical correlation is essential. LAB L501.1110 >60 mL/min Normal EST GFR 115 Result Comment: Non- GFR Calc LAB L501.1115 >60 mL/min Normal EST GFR - AA 140 Result Comment: GFR Calc LAB L501.1300 10-20 RATIO High BUN/CRE 22.0 LAB L501.2200 8.5-10.1 mg/dL CA Normal 9.1 LAB L501.5300 136-145 mmol/L NA Normal 138 LAB L501.5600 3.5-5.1 mmol/L K Normal 4.0 Result Comment: Slight Hemolysis, Result may be falsely increased. LAB L501.5900 98-107 mmol/L Normal CL 102 LAB L501.6100 21.0-32.0 mmol/L Normal CO2 30.0 LAB L501.6200 5-15 Normal 6 GAP Performed By: #### L500.2500 #### [facility] [address]mel [address]uiar. [place], [place], [id number] OFFICE VISIT REPORT Observed: 11/21/2017 Status: F Source: TESS 4:22 PM [facility] Services [place] [address] OFFICE VISIT Date of Service: 11/17/17 MR#: [id number] Acct: [id number] Patient: CEM PABLO Jr. Rep #: [id number] : 1955 Provider: Chela Palomo Age/Sex: 62/M Location: [facility] Status: Signed Comments Summary Comments: Bi-VICD Evaluation: Interrogation shows no VT/VF episodes and 3 MS episodes, <1% total time. No Alerts noted. Left pectoral pocket/incision w/o s/s of infection or erosion. Pt offers no cardiac complaints. Presenting rhythm shows P synchronous Bi-Vpaced @ 73 ppm. Bi-Vpaced=>99%. Battery longevity approx 1.4 yrs. Lead impedances, sensing and pace/sense thresholds remain stable. No parameter changes made. Counters cleared. Next f/u appt scheduled for in 3 mos Device or Lead Warnings or Advisories: *Advisory for possible premature battery depletion from formation of lithium clusters with in the causing a short circuit Pt aware of vibratory notifier and does not want a Lolapps remote box at this time........................................................................................... ............................................................................................... ............................................................................................... ............................................................................................... ............................................................................................... ............................................................................................... ................................................................................ 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 Joao Powell Patient Characteristics Patient Substrate: Ischemic cardiomyopathy Ejection fraction %: 45 to 49 (06/19/2012) By: Echo Underlying rhythm: Sinus rhythm Pacemaker Dependent: No Device Characteristics Device: Biventricular Type: Implantable defibrillator Device Physical Exam Yes Incision well healed Leads Lead #1 Student Finance Advisor Lead 1: [employer]. [employer] Model Lead 1: 2088TC/52 Serial# Lead 1: [id number] Date Implanted Lead 1: 03/29/12 Position Lead 1: RA Lead #2 Student Finance Advisor Lead 2: St. Fred Model Lead 2: 7122Q/58 Serial# Lead 2: [id number] Date Implanted Lead 2: 03/29/12 Position Lead 2: RV Diagnostics Pacing % RA Pacin % RV Pacin % LV Pacin Mode Switching Total # Episodes: 3 % Mode switched: 1 Arrhythmias VF Episodes: 0 Fast VT Episodes: 0 Slow VT Episodes: 0 Non-Sust Episodes: 0 Measurements Battery Charge Time (Sec): 9.4 Battery %: 25 Predicted Remaining Longevity (months or years): 1.4 years RA Measurements Signal Amplitude (mV): 3.2 Impedance (Ohms): 380 Threshold Voltage: 0.62 @ PW(ms): 0.5 RV Measurements Impedance (Ohms): 390 Threshold Voltage: 0.62 @ PW(ms): 0.5 Shock Impedance (Ohms): 69 LV Measurements Impedance (Ohms): 390 Threshold Voltage: 1.62 @ PW(ms): 0.5 Tachy Settings VF Therapies VF Therapy Status On On On On On On Energy 30 40 40 40 40 40 Pathway ATP: During charging on FVT Therapies FVT Therapy Status On On On On On On VT Therapies FVT Therapy Status Off Off Off Off Off Off Comments: Joaquin Settings Joaquin Settings Pacemaker Mode DDD Lower Rate Limit (bpm) 60 Hysteresis Rate (bpm) Max Track Rate (bpm) 120 Max Sensor Rate (bpm) Max AV Delay (msec) 150 Max PV Delay (msec) Max PVARP (msec) Output/Sensing V/PW (ms) 1.625/0.5 2.0/0.5 2.625/0.5 Sensitivity RA RV LV Comments: Billing Codes ICD Device Billing: ICD Dev Prog Eval, Multi Assessment AND Plan Problems 1. Ventricular tachycardia I47.2 2. Presence of automatic (implantable) cardiac defibrillator Z95.810 3. Dilated cardiomyopathy I42.0 11/21/17 1406 <Electronically signed by Chela Palomo > Date Chela Palomo 11/21/17 1622<Electronically signed by Maddison BOWER> Cosigner Signature: Date (if applicable) Maddison Vaughn CC: ALLERGIES ALLERGIES DATE TYPE / CODE NAME / CODE REACTION SEVERITY SOURCE Miscellaneous phenobarbitol blisters Unknown [place] 8 Allergy/[id number]( [facility]) Hospital Repository DRUG PHENOBARBITAL HIVES [place] 3 INGREDI/[id number]( [facility]) [place] Repository ENCOUNTERS ENCOUNTERS ADMIT/DISCHARGE ACCOUNT NUMBER ADMITTING ENCOUNTER LOCATION SOURCE CLASS 10/04/2018/10/04/20 [id number] Ambulatory [address] ding:EN Repository 09/29/2018 [id number] Ambulatory [facility] ding:LAB Repository 09/18/2018/09/26/20 [id number] Ambulatory [address] Repository 09/15/2018/09/15/20 [id number] Ambulatory BMSBuilding: [place] 18 [facility] Repository 07/27/2018 [id number] Ambulatory [facility] ding:CVS Repository 07/27/2018 [id number] Ambulatory BMSBuilding: [facility] Repository 2018 [id number] Ambulatory [facility] ding:LAB Repository 07/13/2018/07/13/20 [id number] Ambulatory BMSBuilding: [place] 18 [facility] Repository 06/01/2018/06/01/20 [id number] Ambulatory BMSBuilding: [place] 18 [facility] Repository 04/26/2018/04/26/20 [id number] Ambulatory [address] Repository 04/25/2018/04/25/20 [id number] Ambulatory [address] Repository 04/24/2018/04/26/20 [id number] Ambulatory [address] Repository 02/23/2018/02/24/20 [id number] Ambulatory BMSBuilding: [place] 18 [facility] Repository 01/14/2018/01/17/20 [id number] Ambulatory [address] Repository 01/12/2018 [id number] Ambulatory Building:[facility] Repository 01/11/2018 [id number] Ambulatory [facility] ding:LAB Repository 11/17/2017/11/17/19 [id number] Ambulatory BMSBuilding: [place] 18 [facility] Repository PAYERS PAYERS ENCOUNTER GUARANTOR PAYER SUBSCRIBER SOURCE 10/04/2018 CEM D Primary CEM D PABLO [place] PABLO Insurance:MEDICARE PART Jr.: [facility] Jr.8911 CR A BPolicy Number: [id number] Repository [address] [place] [address] Date:2018-09-27 [id number]: () 10/04/2018 Secondary CEM D PABLO [place] Insurance:Jose Pulliam.: [facility] Number: [id number] Hospital [id number] Repository Date:0475-10-37[address], [place] [address]EE: 10/04/2018 Tertiary Insurance:SELF NOT GIVENUNK [place] PAY INSURANCEPoly Community Number: Effective Hospital Date:2018-09-27 Repository 09/29/2018 CEM D Primary CEM D PABLO [place] PABLO Insurance:MEDICARE PART Jr.: [facility] Jr.8911 CR A BPolicy Number: [id number] Repository [address] [place] [address] Date:2018-09-29 98738Kjf: () 09/29/2018 Secondary CEM D PABLO [place] Insurance:Jose Pulliam.: Community Number: [id number] Hospital [id number] Repository Date:9335-49-80SK [address], [place] [address]TE: 09/29/2018 Tertiary Insurance:SELF NOT GIVENUNK [place] PAY INSURANCEPolicy Community Number: Effective Hospital Date:2018-09-29 Repository 09/15/2018 CEM D Primary CEM D PABLO [place] PABLO Insurance:CARESOURCCuauhtemoc Jr.: [facility] Jr.[address] CR JUST FOR MUSCOGEEolicy [id number] Hospital [address] Number: Repository [address], [place] [id number] [address]Tsx: (500) Date:1196-54-71LZ [phone] () [place] [address]OM: 09/15/2018 Secondary CEM D PABLO [place] Insurance:MEDICARE PART Jr.: Community A BPolicy Number: [id number] Hospital [id number] Repository Date:2018-06-01 09/15/2018 Tertiary Insurance:SELF NOT GIVENUNK Tess PAY INSURANCEPolicy Community Number: Effective Hospital Date:2018-09-11 Repository 07/27/2018 CEM D Primary CEM D PABLO [place] PABLO Insurance:MEDICARE PART Jr.: [facility] Jr.8911 CR A BPolicy Number: [id number] Hospital [id number] Repository [address] [place] [address] Date:2018 [address]Kiy: () 07/27/2018 Secondary CEM D PABLO [place] Insurance:CIGNA MING Jr.: Community SUPPLEMENT [id number] Hospital SOLUTIONSPolicy Number: Repository [id number] Date:2398-44-50[facility] [address], [place] [address]OZ: 07/27/2018 Tertiary Insurance:SELF NOT GIVENUNK Tess PAY INSURANCEPolicy Community Number: Effective Hospital Date:2018 Repository 07/27/2018 CEM D Primary CEM D PABLO [place] PABLO Insurance:MEDICARE PART Jr.: [facility] Jr.[address] CR A BPolicy Number: [id number] Hospital [id number] Repository [address] Date:2018 [address]Ago: () 07/27/2018 Secondary CEM D PABLO [place] Insurance:CIGNA MING Jr.: Community SUPPLEMENT [id number] Hospital SOLUTIONSPolicy Number: Repository [id number] Date:8399-82-22NKKJODPL[facility] [address] [address], [place] [address]VW: 07/27/2018 Tertiary Insurance:SELF NOT GIVENUNK Tess PAY INSURANCEPolicy Community Number: Effective Hospital Date:2018-07-27 Repository 2018 CEM D Primary CEM D PABLO [place] PABLO Insurance:MEDICARE PART Jr.: [facility] Jr.8911 CR A BPolicy Number: [id number] Hospital [id number] Repository [address] Date:2018 [address]Fkc: () 2018 Secondary CEM D PABLO [place] Insurance:Jose Pulliam.: Community Number: [id number] Hospital [id number] Repository Date:6513-51-03RV [address], [place] [address]SF: 2018 Tertiary Insurance:SELF NOT GIVENUNK Tess PAY INSURANCEPolicy Community Number: Effective Hospital Date:2018 Repository 2018 CEM D Primary CEM D PABLO Tess PABLO Insurance:MEDICARE PART Jr.: [facility] Jr.[address] [place] [address] Number: [id number] [facility] [address] [place] [address], [id number] [place]ository [place] [id number]: Date:2017-10-11 (QU) 2018 Secondary CEM D PABLO [place] Insurance:Jose Pulliam.: Community Number: [id number] Hospital [id number] Repository Date:[id number] [address]DM: 2018 Tertiary Insurance:SELF NOT GIVENUNK [place] PAY INSURANCEPolicy Community Number: Effective Hospital Date:2018 Repository 06/01/2018 CEM D Primary CEM D PABLO [place] PABLO Insurance:RACHEL Levin: [address] [id number], Number: Repository [place] [id number]: [id number] Date:[id number] BOX () [address] [place] [id number]: 06/01/2018 Secondary NOT GIVENUNK [place] Insurance:SELF PAY Community INSURANCEPolicy Number: Hospital Effective Repository Date:2018-06-01 02/23/2018 CEM D Primary CEM D PABLO Tessronnie PABLO Jr.[facility] Insurance:RACHEL Levin: [facility] [id number] Number: Repository [id number]: [phone] [id number] [phone] () Date:[id number] [address] [place] [id number]: 02/23/2018 Secondary NOT GIVENUNK [place] Insurance:SELF PAY Community INSURANCEPolicy Number: Hospital Effective Repository Date:2018-02-23 01/12/2018 CEM D Primary CEM D PABLO [facility] PABLO Insurance:RACHEL LEVIN: [facility]: [facility] [id number] [facility] E Number: [id number] Repository [place], [place] Date:[id number]: [phone]: ([phone]) Name:[facility] [address] [place] [address] () [facility]3258 () 01/11/2018 CEM D Primary CEM D PABLO [place] PABLO Jr.296 Insurance:CARESOJELENA Levin: [facility] [place] KATZ [facility] [id number] Number: Repository [id number]: [phone] [id number] [phone] () Date:[id number] [address] [id number]: 01/11/2018 Secondary NOT GIVENUNK Tess Insurance:SELF PAY Community INSURANCEPolicy Number: Hospital Effective Repository Date:2018-01-11 11/17/2017 CEM D Primary CEM D PABLO [place] PABLO [address]296 Insurance:CARESOMARGARITOE : [facility] [place] KATZ [facility] [id number] Number: Repository [id number]: [phone] [id number] [phone] () Date:[id number] [address] [place] [id number]: 11/17/2017 Secondary NOT GIVENUNK [place] Insurance:SELF PAY Community INSURANCEPolicy Number: Hospital Effective Repository Date:2017-10-06
== END ==
PROVIDERS: Family Provider Family Medicine; PCP Family Medicine; Referring Provider Internal Medicine Cardiovascular Disease; Visit Provider Internal Medicine Cardiovascular Disease
DX: I10 Essential (primary) hypertension (principal); E78.5 Hyperlipidemia, unspecified
CPT/HCPCS: 36415; 80061; 80076; 82947; 84443

== ENCOUNTER 2018-10-04 11:25 | Day surgery (SDC) | payer MEDICARE, OTHER, SELFPAY ==
[2018-07-13 09:11] VITALS: BMI 31.6
[2018-10-04] VITALS (9 sets, daily range): BP systolic 120–148; BP diastolic 68–94; PULSE 62–65; RESP 16; TEMP 36.6–37.2; O2SAT 92–98; BMI 30.8
--- NOTE | 2018-10-04 12:50 | COLBX_PTH ---
PATIENT: JONATHAN PABLO Jr. LOC: EN U#:[id number] AGE/SX: 63/M ROOM: RE10/04/[address]: Dr. Kavya Bonner MD : 1955 BED: DIS: 10/04/2018 SPEC #: [id number] RECD: 10/04/18 15:17 STATUS: MARTÍN REQ #: [id number] KARRIE: 10/04/18 12:[address]: Kayva Bonner DEPT: SURGICAL PATHOLOGY RECD BY: Syed Hawk ENTERED: 10/05/18 08:06 SP TYPE: COLON BX OTHR DR: Dr. Thad Mao MD Tissues: Sigmoid colon biopsy Procedures: Surgery Specimen Level IV HEADER OPERATION: Colonoscopy (MOD) PRE-OP DIAGNOSIS: Screening TISSUE SUBMITTED: Biopsy polyp sigmoid MICROSCOPIC DIAGNOSIS Sigmoid polyp, biopsy: Tubular adenoma. SJ:tate 10/06/18 MICROSCOPIC DESCRIPTION Slides are reviewed. GROSS DESCRIPTION Received in fixative is one container labeled with the patient's name and designated biopsy polyp sigmoid. The specimen consists of one irregular fragment of light parr soft tissue that measures 0.4 x 0.3 x 0.1 cm. The specimen is totally submitted in one cassette. / SJ:tate 10/05/18 TC:1 CPT: 02266
--- NOTE | 2018-10-04 14:00 | OP.ENDO_ITS ---
Patient Name: Cem Bartlett Procedure Date: 10/04/2018 1:18 PM Date of : 1955 Age: 63 Procedure: Colonoscopy Indications: Screening for colorectal malignant neoplasm Providers: Kavya Bonner MD Referring MD: Thad Mao Medicines: Midazolam 5 mg IV, Fentanyl 100 micrograms IV, Diphenhydramine 50 mg IV Patient Profile: Refer to note in patient chart for documentation of history and physical. Last Colonoscopy: 10 years ago. Complications: No immediate complications. Procedure: Pre-Anesthesia Assessment: - Prior to the procedure, a History and Physical was performed, and patient medications and allergies were reviewed. The patient is competent. The risks and benefits of the procedure and the sedation options and risks were discussed with the patient. All questions were answered and informed consent was obtained. Patient identification and proposed procedure were verified by the physician in the pre-procedure area. Mental Status Examination: alert and oriented. Airway Examination: normal oropharyngeal airway and neck mobility. Respiratory Examination: clear to auscultation. CV Examination: normal. Prophylactic Antibiotics: The patient does not require prophylactic antibiotics. Prior Anticoagulants: The patient has taken no previous anticoagulant or antiplatelet agents. ASA Grade Assessment: II - A patient with mild systemic disease. After reviewing the risks and benefits, the patient was deemed in satisfactory condition to undergo the procedure. The anesthesia plan was to use moderate sedation / analgesia (conscious sedation). Immediately prior to administration of medications, the patient was re-assessed for adequacy to receive sedatives. The heart rate, respiratory rate, oxygen saturations, blood pressure, adequacy of pulmonary ventilation, and response to care were monitored throughout the procedure. The physical status of the patient was re-assessed after the procedure. After I obtained informed consent, the scope was passed under direct vision. Throughout the procedure, the patient's blood pressure, pulse, and oxygen saturations were monitored continuously. The colonoscope was introduced through the anus and advanced to the cecum, identified by appendiceal orifice and ileocecal valve. The colonoscopy was performed without difficulty. The patient tolerated the procedure well. The quality of the bowel preparation was adequate, though required time for lavage to completely clear the grimaldo.. Moderate Sedation: The administration of moderate sedation was initiated at 13:24 PM. Moderate (conscious) sedation was personally administered by the endoscopist. The following parameters were monitored: oxygen saturation, heart rate, blood pressure, and response to care. Total physician intraservice time was 10 minutes. Scope In: 1:30:23 PM Scope Withdrawal Time 0 hours 18 minutes 13 seconds Scope Out: 1:54:14 PM Total Procedure Duration Time 0 hours 23 minutes 51 seconds Findings: The perianal and digital rectal examinations were normal. Pertinent negatives include normal sphincter tone. A 5 to 10 mm polyp was found in the sigmoid colon, picture could not be obtained due to location under a fold. The polyp was sessile. The polyp was removed with a cold biopsy forceps. Resection and retrieval were complete. Verification of patient identification for the specimen was done by the nurse. Estimated blood loss was minimal. Non-bleeding internal hemorrhoids were found. Impression: - One 5 to 10 mm polyp in the sigmoid colon, removed with a cold biopsy forceps. Resected and retrieved. - Non-bleeding internal hemorrhoids. Recommendation: - Repeat colonoscopy date to be determined after pending pathology results are reviewed for surveillance based on pathology results. - Telephone my office for pathology results in 1 week. - Continue present medications. Procedure Code(s): --- Professional --- 98416, Colonoscopy, flexible; with biopsy, single or multiple G0500, Moderate sedation services provided by the same physician or other qualified health child care giver performing a gastrointestinal endoscopic service that sedation supports, requiring the presence of an independent trained observer to assist in the monitoring of the patient's level of consciousness and physiological status; initial 15 minutes of intra-service time; patient age 5 years or older (additional time may be reported with 77741, as appropriate) Diagnosis Code(s): --- Professional --- K64.8, Other hemorrhoids D12.5, Benign neoplasm of sigmoid colon Z12.11, Encounter for screening for malignant neoplasm of colon CPT copyright 2017 [employer] [employer]. All rights reserved. The codes documented in this report are preliminary and upon burr sander review may be revised to meet current compliance requirements. MD Kavya Wesley MD 10/04/2018 2:00:21 PM This report has been signed electronically. Number of Addenda: 0 Note Initiated On: 10/04/2018 1:18 PM
== END 2018-10-04 14:50 | disposition home or self-care (01) ==
LOC: EN 11:27
PROVIDERS: Family Provider Family Medicine; PCP Family Medicine; Referring Provider Family Medicine; Visit Provider Surgery
PROC: 0DJD8ZZ Inspection of Lower Intestinal Tract, Via Natural or Artificial Opening Endoscopic (ICD-10-PCS; CPT 45378; principal; 2018-10-04 12:45)
DX: Z12.11 Encounter for screening for malignant neoplasm of colon (principal); D12.5 Benign neoplasm of sigmoid colon; K64.8 Other hemorrhoids; I10 Essential (primary) hypertension; I42.8 Other cardiomyopathies; N40.0 Benign prostatic hyperplasia without lower urinary tract symptoms; Z86.010 Personal history of colon polyps; E78.00 Pure hypercholesterolemia, unspecified; Z79.899 Other long term (current) drug therapy; Z79.82 Long term (current) use of aspirin; Z85.828 Personal history of other malignant neoplasm of skin; Z87.891 Personal history of nicotine dependence
CPT/HCPCS: 45380; 88305; 99152; 99153; J7120

== ENCOUNTER → 2018-10-25 09:36 | Outpatient (CLI) | payer MEDICARE, OTHER, SELFPAY ==
[2018-10-04 12:04] VITALS: BMI 30.8
[2018-10-25 11:28] LABS: Hemoglobin A1c 5.7 % (4.2-6.3)
[2018-10-25 11:30] LABS: Cholesterol 136 mg/dL (200); High Density Lipoprotein 27 mg/dL; Triglycerides 383 mg/dL; Very Low Density Lipoprotein 77 mg/dL (5-40)
== END ==
PROVIDERS: Family Provider Family Medicine; PCP Family Medicine; Referring Provider Family Medicine; Visit Provider Family Medicine
DX: Z79.899 Other long term (current) drug therapy (principal)
CPT/HCPCS: 36415; 80061; 83036

== ENCOUNTER → 2018-11-17 07:26 | Outpatient (CLI) | payer MEDICARE, OTHER, SELFPAY ==
[2018-10-04 12:04] VITALS: BMI 30.8
--- NOTE | 2018-11-17 | LES_PTH ---
PATIENT: JONATHAN PABLO Jr. LOC: RYAN U#:[id number] AGE/SX: 70/M ROOM: RE11/17/[address]: Dr. Devante Cota MD : 1955 BED: DIS: SPEC #: [id number] RECD: 11/17/18 17:44 STATUS: MARTÍN REMayur #: [id number] KARRIE: 11/17/18 00:[address]: Devante Cota DEPT: SURGICAL PATHOLOGY RECD BY: Shen Donnelly ENTERED: 11/20/18 10:21 SP TYPE: Lesion OTHR DR: Dr. 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 AM:tate 11/21/18 MICROSCOPIC DESCRIPTION Slides are reviewed. GROSS DESCRIPTION Received in fixative is one container labeled with the patient's name and designated SILVER. The specimen consists of a single irregular fragment of light parr soft tissue measuring 0.6 x 0.3 x 0.1 cm. The specimen is totally submitted in one cassette. / AM:tate 11/20/18 TC:5 CPT: 09388
--- OUTSIDE RECORDS SUMMARY | 2019-01-22 09:11 | XMS RPT_ITS ---
:1955 Author Organization [place] Support Name Relationship Address Phone PIERCE PABLO Unavailable [address] + [address] [place] [address] R Unavailable Unavailable Unavailable SAMYHARRYAN Unavailable [address] + [address] [place] [address] R Unavailable Unavailable Unavailable PIERCE PABLO Unavailable [address] + [address] [place] [address] R Unavailable Unavailable Unavailable PIERCE PABLO Unavailable [address] + [address] [place] [address] R Unavailable Unavailable Unavailable SAMY PIERCE Unavailable [address] + [address] [place] [address] R Unavailable Unavailable Unavailable PIERCE PABLO Unavailable [address] + [place] [address] R Unavailable Unavailable Unavailable PIERCE PABLO Unavailable [address] + [place] [address] R Unavailable Unavailable Unavailable PIERCE PABLO Unavailable [address] + [place] [address] R Unavailable Unavailable Unavailable PIERCE PABLO Unavailable [address] + [place] [address] R Unavailable Unavailable Unavailable PIERCE PABLO Unavailable [address] + [place] [address] R Unavailable Unavailable Unavailable PIERCE PABLO Unavailable [address] + [place] [address] R Unavailable Unavailable Unavailable PABLO, PIERCE Unavailable [address] + [place] [address] SAMY RESENDEZ CEM Unavailable Unavailable Unavailable [place] SAMYHARRYAN Unavailable [address] + [place] [address] R Unavailable Unavailable Unavailable Care Team Providers Name Role Phone OLGA NIELSON Attending Unavailable CEDRIC PELAEZ Referring Unavailable JAYCE KABA Primary Care Unavailable MAYCO, MELINDA Guardado Attending Unavailable MAYCO, MELINDA J Referring Unavailable MAYCO, MELINDA J Attending Unavailable MAYCO, MELINDA J Referring Unavailable MAYCO, MELINDA J Referring Unavailable KAVYA BONNER Attending Unavailable MAYCO, MELINDA Guardado Referring Unavailable MAYCO, MELINDA Guardado Attending Unavailable MAYCO, MELINDA Guardado Referring Unavailable MAYCO, MELINDA J Referring Unavailable [place], Melinda Attending Unavailable [place], Melinda Referring Unavailable Mayco, Melinda Primary Care Unavailable Devante Cota Attending Unavailable Devante Cota Referring Unavailable [place], Melinda Primary Care Unavailable [place], Melinda Attending Unavailable Mayco, Melinda Referring Unavailable [place], Melinda Primary Care Unavailable Chela Palomo Attending Unavailable [place], Melinda Referring Unavailable [place], Melinda Primary Care Unavailable Chela Palomo Attending Unavailable Mayco, Melinda Referring Unavailable [place], Melinda Primary Care Unavailable Veronica, Christofer Attending Unavailable Mayco, Melinda Referring Unavailable Mayco, Melinda Primary Care Unavailable Veronica, Vevay Attending Unavailable Veronica, Vevay Referring Unavailable Mayco, Melinda Primary Care Unavailable Veronica, Vevay Attending Unavailable Veronica, Vevay Referring Unavailable Mayco, Melinda Primary Care Unavailable Veronica, Vevay Attending Unavailable Veronica, Vevay Referring Unavailable Chela Palomo Attending Unavailable [place], Melinda Referring Unavailable Kavya Bonner Attending Unavailable Mayco, Melinda Primary Care Unavailable Mayco, Melinda Referring Unavailable Veronica, Vevay Attending Unavailable Veronica, Vevay Referring Unavailable Mayco, Melinda Primary Care Unavailable PROBLEMS PROBLEMS DATE TYPE CONDITION / CODE ATTENDING STATUS SOURCE 10/26/2018 Unknown I47.2 - Ventricular Chela Palomo Active [facility] tachycardia / Community I47.2(ICD-10) Hospital Repository 10/26/2018 Unknown I42.2 - Other Cheal Palomo Active [facility] hypertrophic Community cardiomyopathy / Hospital I42.2(ICD-10) Repository 10/26/2018 Unknown Z95.810 - Presence Chela Palomo Active [facility] automatic Community (implantable) Hospital cardiac Repository defibrillator / Z95.810(ICD-10) 10/26/2018 Unknown I44.7 - Left Chela Palomo Active [facility] [place] bundle-branch block, Community unspecified / Hospital I44.7(ICD-10) Repository 2018 Unknown I10 - Essential Veronica, Vevay Active [facility] (primary) Community hypertension / Hospital I10(ICD-10) Repository 2018 Unknown E78.5 - Veronica, Christofer Active [facility] Hyperlipidemia, Community unspecified / Hospital E78.5(ICD-10) Repository 2018 Unknown Z98.890 - Other Veronica, Vevay Active [facility] [place] specified Community postprocedural Hospital states / Repository Z98.890(ICD-10) 04/26/2018 Active Calculus of kidney / NA Active [facility] N20.0(ICD-10) [facility] Repository 04/25/2018 Active Radiculopathy, NA Active [facility] lumbar region / Clinic Main M54.16(ICD-10) [facility] Repository 01/12/2018 Admitting Mohs Surgery / 936() OLGA NIELSON Active [facility] Repository PROCEDURES PROCEDURES No Procedure Records FoundRESULTS RESULTS PROGRESS Observed: 11/22/2018 Status: COMPLETED Source: [place] 9:02 AM [facility] REPOSITORY HNO ID: [id number] Author: Tameka Minor LPN Service: (none) Author Type: (none) Type: Progress Notes Filed: 11/22/2018 9:03 AM Note Text: Patient presents for Prevnar 13 vaccine. Denies any problems at this time. Tolerated injection well. Tameka Minor LPN CNNURSE Observed: 11/22/2018 Status: COMPLETED Source: [place] 9:00 AM [facility] REPOSITORY Nurse Visit (FAMPWS) CEM PABLO ([id number]) 1955 Date Time Provider Department 11/22/18 9:00 AM [facility] NURSE PILY During your visit today, we recorded the following information about you: Tameka Minor LPN 11/22/2018 9:03 AM Signed Patient presents for Prevnar 13 vaccine. Denies any problems at this time. Tolerated injection well. Tameka Minor LPN Referring Provider: MELINDA MAO [[id number]] Allergies As of Date: 11/22/2018 Noted Allergy Reaction PHENOBARBITAL 04/25/2013 4 - Hives Date Reviewed: 11/02/2018 Reviewed by: Althea Hennessy LPN - Fully Assessed Reason for Visit: Imm/Inj [58] Primary Visit Diagnosis:Need for vaccination with 13-polyvalent pneumococcal conjugate vaccine [Z23] Prescriptions as of 11/22/2018 Sig: PRAVASTATIN 40 MG TABLET Take 1 tablet by mouth once d* HYDROCHLOROTHIAZIDE 25 MG TAB* Take 1 tablet by mouth once d* DOXAZOSIN 1 MG TABLET Take 1 tablet by mouth once d* LISINOPRIL 20 MG TABLET Take 1 tablet by mouth twice * CARVEDILOL 12.5 MG TABLET Take 12.5 mg by mouth twice d* ASPIRIN 81 MG TABLET,DELAYED * Take 1 tablet by mouth once d* Problem List As Of Date 11/22/2018 Noted Resolved BENIGN NEOPLASM LG BOWEL [D12.6] INVALID FOR* Cervical spondylosis without myelopathy [M47.81*INVALID FOR* Displacement of cervical intervertebral disc wi*INVALID FOR* Spinal stenosis in cervical region [M48.02] INVALID FOR* Hypertrophic cardiomyopathy [I42.2] INVALID FOR* HTN (hypertension) [I10] INVALID FOR* Arthrodesis status [Z98.1] INVALID FOR*11/02/2018 Cervicalgia [M54.2] INVALID FOR* Elevated glucose level [R73.09] INVALID FOR* Hypercholesteremia [E78.00] Basal cell carcinoma (BCC) of skin of lip [C44.*INVALID FOR* More... Encounter Status:Closed by TAMEKA MINOR LPN on 11/22/18 LESION (CHOOSE SITE) Observed: 11/17/2018 Status: F Source: [place] 12:00 AM [facility] REPOSITORY Patient: CEM PABLO Jr. : 1955 (63/M) Acct Num: [id number] Phys: Devante Cota MD Unit Num: [id number] Loc: LABSPEC Specimen: [id number] Received: 11/17/181743 Spec Type: Lesion TISSUES 1 TISSUES: Skin of eyelid, NOS GROSS DESCRIPTION Received in fixative is one container labeled with the patient's name and designated SILVER. The specimen consists of a single irregular fragment of light parr soft tissue measuring 0.6 x 0.3 x 0.1 cm. The specimen is totally submitted in one cassette. 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 MICROSCOPIC DIAGNOSIS Left upper eyelid lesion, biopsy: Intradermal nevus. AM:tate 11/21/18 Signed Brayden Millan DO 11/21/18 <signature on file> Performed By: #### PLES #### [facility] [address] [place] [address]. [place], [place], [address] PROGRESS Observed: 11/02/2018 Status: COMPLETED Source: [place] 11:12 AM [facility] REPOSITORY HNO ID: [id number] Author: Melinda Mao Service: (none) Author Type: Physician Type: Progress Notes Filed: 11/02/2018 11:28 AM Note Text: Patient presents with: Recheck HPI: Patient presents today for office visit for follow up visit. HTN: Patient is compliant with meds Yes Denies side effects: sometimes fatigued. Dr. Martin said it could be meds but stay on it. Chest pain: No. Dyspnea: No. Edema: No. Palpitations: No. Syncope: No. Headache: No. Dizziness: No. HYPERLIPIDEMIA: Patient is taking medications: yes Patient is watching diet: Yes. Patient denies myalgias: Yes. Patient denies gi upset: Yes Discussed diet. Urology: overall doing well. Cardiology:EF is 55% on recent echo. Still seeing Dr. Martin. Getting battery replaced on pacer this spring. . Reviewed labs. Bmp done in spring. hba1c was normal and lipids showed elevated trigs recently. MEDICATIONS: Current Outpatient Prescriptions: hydroCHLOROthiazide (HYDRODIURIL, ESIDRIX) [...] Take 1 tablet by mouth once daily. No current facility-administered [...] SURGICAL HISTORY Procedure Laterality Date - COLONOSCOPY 10/04/2018 - COLONOSCOPY W/BX 05/02/08 - PAST SURGICAL HISTORY OF 1974 Left knee surgery - PAST SURGICAL HISTORY OF 02/2012 ICD placement at [facility]- done by Dr Serrano - PAST SURGICAL HISTORY OF 2010 right carpal tunnel release - PAST SURGICAL HISTORY OF 07/26/2013 cervical (Dr. Mcbride) FAMILY HISTORY Problem Relation Age [...] today. REVIEW OF SYSTEMS GI: Negative for change in bowel habit : No history of dysuria, frequency or incontinence All other reviewed and negative other than HPI. HEALTH MAINTENANCE: Reviewed health maintenance issues today and recommended the following in detail. BP CONTROLLED (<130/80) due on 1971 INFLUENZA-done. ADULT PREVNAR-13 -recommended. PNEUMOVAX AGE 65 AND OVER WITH 5YR-recommended. - Had discussion with patient regarding risks and benefits of prostate screening. Allowed them to decide if they wished to proceed with screening including LIS and PSA. VITALS: BP 120/72 Pulse 60 Resp 18 Wt 110.2 kg (243 lb) BMI 31.20 kg/m? Last 4 Encounter Wt Readings: Date: Wt: 11/02/2018 110.2 kg (243 lb) 09/18/2018 111.1 kg (245 lb) 04/24/2018 108.4 kg (239 lb) 01/14/2018 108.9 kg (240 lb) PHYSICAL EXAMINATION: General appearance: Well appearing, alert, in no acute distress, well-hydrated, well nourished. Skin: Skin color, texture, turgor normal, no suspicious rashes or lesions Head: Normocephalic, no masses, lesions, tenderness or abnormalities Neck: Supple, no adenopathy; thyroid symmetric, normal size, no bruits Lungs: lungs clear to auscultation. No wheezing, rhonchi, rales Heart: RRR without murmur, gallop, or rubs. No ectopy Abdomen: Normal abdominal exam, Abdomen soft, non-tender. Bowel sounds normal. No masses, organomegaly Extremities: No deformities, edema, skin discoloration, clubbing or cyanosis. Good capillary refill. Musculoskeletal: No joint swelling, deformity, or tenderness Peripheral pulses: Normal Neuro: Gait normal. Reflexes normal and symmetric. Sensation grossly intact. ASSESSMENT/PLAN: 1. Hypertrophic cardiomyopathy (HCC) - ICD9: 425.18, ICD10: I42.2 (primary diagnosis) - continue to follow with cardiologyl 2. Essential hypertension - ICD9: 401.9, ICD10: I10 - good control - Continue current medication(s) - Goal of BP <130/80 3. Hypercholesteremia - ICD9: 272.0, ICD10: E78.00 - good control - Continue current therapy. Watch diet. - PRAVASTATIN 40 MG TABLET - COMP METABOLIC PANEL - LIPID PANEL BASIC 4. Elevated glucose level - ICD9: 790.29, ICD10: R73.09 - follow labs. Melinda Mao MD RTO in six months and prn. CNOV Observed: 11/02/2018 Status: COMPLETED Source: [place] 11:00 AM [facility] REPOSITORY Office Visit (FAMPWS) CEM PABLO ([id number]) 1955 M Date Time Provider Department 11/02/18 11:00 AM MELINDA MAO During your visit today, we recorded the following information about you: Pulse Respiration Blood pressure Weight 60/minute 18/minute 120/72 110.2 kg Melinda Mao MD 11/02/2018 11:28 AM Signed Patient presents with: Recheck HPI: Patient presents today for office visit for follow up visit. HTN: Patient is compliant with meds Yes Denies side effects: sometimes fatigued. Dr. Martin said it could be meds but stay on it. Chest pain: No. Dyspnea: No. Edema: No. Palpitations: No. Syncope: No. Headache: No. Dizziness: No. HYPERLIPIDEMIA: Patient is taking medications: yes Patient is watching diet: Yes. Patient denies myalgias: Yes. Patient denies gi upset: Yes Discussed diet. Urology: overall doing well. Cardiology:EF is 55% on recent echo. Still seeing Dr. Martin. Getting battery replaced on pacer this spring. . Reviewed labs. Bmp done in spring. hba1c was normal and lipids showed elevated trigs recently. MEDICATIONS: Current Outpatient Prescriptions: hydroCHLOROthiazide (HYDRODIURIL, ESIDRIX) [...] Take 1 tablet by mouth once daily. No current facility-administered [...] SURGICAL HISTORY Procedure Laterality Date - COLONOSCOPY 10/04/2018 - COLONOSCOPY W/BX 05/02/08 - PAST SURGICAL HISTORY OF 1974 Left knee surgery - PAST SURGICAL HISTORY OF 02/2012 ICD placement at [facility]- done by Dr Serrano - PAST SURGICAL HISTORY OF 2010 right carpal tunnel release - PAST SURGICAL HISTORY OF 07/26/2013 cervical (Dr. Mcbride) FAMILY HISTORY Problem Relation Age [...] today. REVIEW OF SYSTEMS GI: Negative for change in bowel habit : No history of dysuria, frequency or incontinence All other reviewed and negative other than HPI. HEALTH MAINTENANCE: Reviewed health maintenance issues today and recommended the following in detail. BP CONTROLLED (<130/80) due on 1971 INFLUENZA-done. ADULT PREVNAR-13 -recommended. PNEUMOVAX AGE 65 AND OVER WITH 5YR-recommended. - Had discussion with patient regarding risks and benefits of prostate screening. Allowed them to decide if they wished to proceed with screening including LIS and PSA. VITALS: BP 120/72 Pulse 60 Resp 18 Wt 110.2 kg (243 lb) BMI 31.20 kg/m? Last 4 Encounter Wt Readings: Date: Wt: 11/02/2018 110.2 kg (243 lb) 09/18/2018 111.1 kg (245 lb) 04/24/2018 108.4 kg (239 lb) 01/14/2018 108.9 kg (240 lb) PHYSICAL EXAMINATION: General appearance: Well appearing, alert, in no acute distress, well-hydrated, well nourished. Skin: Skin color, texture, turgor normal, no suspicious rashes or lesions Head: Normocephalic, no masses, lesions, tenderness or abnormalities Neck: Supple, no adenopathy; thyroid symmetric, normal size, no bruits Lungs: lungs clear to auscultation. No wheezing, rhonchi, rales Heart: RRR without murmur, gallop, or rubs. No ectopy Abdomen: Normal abdominal exam, Abdomen soft, non-tender. Bowel sounds normal. No masses, organomegaly Extremities: No deformities, edema, skin discoloration, clubbing or cyanosis. Good capillary refill. Musculoskeletal: No joint swelling, deformity, or tenderness Peripheral pulses: Normal Neuro: Gait normal. Reflexes normal and symmetric. Sensation grossly intact. ASSESSMENT/PLAN: 1. Hypertrophic cardiomyopathy (HCC) - ICD9: 425.18, ICD10: I42.2 (primary diagnosis) - continue to follow with cardiologyl 2. Essential hypertension - ICD9: 401.9, ICD10: I10 - good control - Continue current medication(s) - Goal of BP <130/80 3. Hypercholesteremia - ICD9: 272.0, ICD10: E78.00 - good control - Continue current therapy. Watch diet. - PRAVASTATIN 40 MG TABLET - COMP METABOLIC PANEL - LIPID PANEL BASIC 4. Elevated glucose level - ICD9: 790.29, ICD10: R73.09 - follow labs. Melinda Mao MD RTO in six months and prn. Referring Provider: MELINDA MAO [[id number]] Allergies As of Date: 11/02/2018 Noted Allergy Reaction PHENOBARBITAL 04/25/2013 4 - Hives Date Reviewed: 11/02/2018 Reviewed by: Althea Hennessy LPN - Fully Assessed Reason for Visit: Recheck [92] Primary Visit Diagnosis:Hypertrophic cardiomyopathy (HCC) [I42.2] Other Visit Diagnoses:Essential hypertension [I10] Hypercholesteremia [E78.00] Elevated glucose level [R73.09] Order(s):pravastatin (PRAVACHOL) 40 mg tabletTake 1 tablet by mouth once daily.Disp: 90 tabletRfl: 3 COMP METABOLIC PANEL [SQCMP] Order #: [id number] FUTURE LIPID PANEL BASIC [SQLIPB] Order #: [id number] FUTURE Prescriptions as of 11/02/2018 Sig: HYDROCHLOROTHIAZIDE 25 MG TAB* Take 1 [...] Take 1 tablet by mouth once d* Problem List As Of Date 11/02/2018 Noted Resolved BENIGN NEOPLASM LG BOWEL [D12.6] INVALID FOR* Cervical spondylosis without myelopathy [M47.81*INVALID FOR* Displacement of cervical intervertebral disc wi*INVALID FOR* Spinal stenosis in cervical region [M48.02] INVALID FOR* Hypertrophic cardiomyopathy [I42.2] INVALID FOR* HTN (hypertension) [I10] INVALID FOR* Arthrodesis status [Z98.1] INVALID FOR*11/02/2018 Cervicalgia [M54.2] INVALID FOR* Elevated glucose level [R73.09] INVALID FOR* Hypercholesteremia [E78.00] Basal cell carcinoma (BCC) of skin of lip [C44.*INVALID FOR* More... Prescriptions ordered this encounter Disp Refills Start End PRAVASTATIN 40 MG TABLET 90 t* 3 11/02/2018 Route: ORAL Sig: Take 1 tablet by mouth once daily. Medications Discontinued During This Encounter pravastatin (PRAVACHOL) 40 mg tablet 30 t* 5 05/23/2018 11/02/2018 Route: ORAL Sig: Take 1 tablet by mouth once daily. Disc: Reason for discontinue is not on file. Encounter Status:Closed by MELINDA MAO MD on 11/02/18 HEMOGLOBIN A1C Collected: 10/25/2018 Status: F Source: [place] 9:58 AM [facility] REPOSITORY TYPE CODE TESTS RESULT OUT OF RANGE REFERENCE UNITS LAB L501.9985 4.2-6.3 % Normal HGB A1C 5.7 Performed By: #### L501.9985 #### [facility] [address] [place], [address] LIPID PROFILE Collected: 10/25/2018 Status: F Source: [place] 9:58 AM [facility] REPOSITORY TYPE CODE TESTS RESULT OUT OF RANGE REFERENCE UNITS LAB L501.4900 200 mg/dL Normal CHOL 136 Result Comment: <200 mg/dL Desirable 200-240 mg/dL Borderline >240 mg/dL High Risk LAB L501.5000 mg/dL High TRIG 383 Result Comment: The drugs N-Acetylcysteine and Metamizole may falsely depress this assay. Serum Triglycerides Reference Interval Normal <150 mg/dL Borderline high 150 - 199 mg/dL High 200 - 499 mg/dL Very High > or = 500 mg/dL LAB L501.6400 mg/dL Low HDL 27 Result Comment: The drugs N-Acetylcysteine and Metamizole may falsely depress this assay. Reference Range HDL <40 mg/dL Low HDL Cholesterol HDL >or= 60 mg/dL High HDL Cholesterol LAB L501.6500 0-130 mg/dL Normal LDL 32 LAB L501.6600 5-40 mg/dL High VLDL 77 Performed By: #### L500.4100 #### [facility] [address] [place], [address] [facility] Observed: 10/17/2018 Status: COMPLETED Source: [place] 12:00 AM [facility] REPOSITORY Patient Outreach (INTMWH) CEM PABLO ([id number]) 1955 Date Time Provider Department 10/17/18 MELINDA MAO [facility] During your visit today, we recorded the following information about you: Allergies As of Date: 10/17/2018 Noted Allergy Reaction PHENOBARBITAL 04/25/2013 4 - Hives Date Reviewed: 09/18/2018 Reviewed by: Kavya Bonner - Fully Assessed Visit Diagnosis:Medication management [Z79.899] Order(s):HGB A1C [UXGYK3C] Order #: [id number] FUTURE LIPID PANEL BASIC [SQLIPB] Order #: [id number] FUTURE Prescriptions as of 10/17/2018 Sig: ASPIRIN 81 MG TABLET,DELAYED * Take 1 tablet by mouth once d* CARVEDILOL 12.5 MG TABLET Take 12.5 mg by mouth twice d* DOXAZOSIN 1 MG TABLET Take 1 tablet by mouth once d* HYDROCHLOROTHIAZIDE 25 MG TAB* Take 1 tablet by mouth once d* LISINOPRIL 20 MG TABLET Take 1 tablet by mouth twice * PRAVASTATIN 40 MG TABLET Take 1 tablet by mouth once d* Problem List As Of Date 10/17/2018 Noted Resolved BENIGN NEOPLASM LG BOWEL [D12.6] [...] of skin of lip [C44.*INVALID FOR* More... Encounter Status:Closed by BumprUSER on 11/01/18 OPERATIVE REPORT - Observed: 10/04/2018 Status: F Source: [place] [facility] 2:00 PM [facility] REPOSITORY [facility] Medical Records Department [address] [place] [id number] Operative Report - Endoscopy MR#: [id number] Acct: [id number] Name: CEM PABLO . Rep #: [id number] : 1955 63 From: Kavya Bonner MD PCP: Melinda Mao MD Status: REG [facility] Patient Name: Cem Pablo Procedure Date: 10/04/2018 [...] present medications. Procedure Code(s): --- Professional --- 88811, Colonoscopy, flexible; with biopsy, single or multiple G0500, Moderate sedation services provided by the same physician or other qualified health rn critical care performing a gastrointestinal endoscopic service that sedation supports, requiring the presence of an independent trained observer to assist in the monitoring of the patient's level of consciousness and physiological status; initial 15 minutes of intra-service time; patient age 5 years or older (additional time may be reported with 33357, as appropriate) Diagnosis Code(s): --- Professional --- K64.8, Other hemorrhoids D12.5, Benign neoplasm of sigmoid colon Z12.11, Encounter for screening for malignant neoplasm of colon CPT copyright 2017 [employer]. All rights reserved. The codes documented in this report are preliminary and upon vice president review may be revised to meet current compliance requirements. MD Kavya Wesley MD 10/04/2018 2:00:21 PM This report has been signed electronically. Number of Addenda: 0 Note Initiated On: 10/04/2018 1:18 PM 10/04/18 1400 Date Kavya Bonner MD Cosigner Signature: Date (if indicated) CC: Kavya Bonner MD; Melinda Mao MD Date Dictated: 10/04/18 1318 Date Transcribed: [employer] Manager: LW Signed COLON BIOPSY (CHOOSE Observed: 10/04/2018 Status: F Source: [facility]) 12:50 PM [facility] REPOSITORY Patient: CEM PABLO Jr. : 1955 (63/M) Acct Num: [id number] Phys: Kavya Bonner MD Unit Num: [id number] Loc: EN Specimen: [id number] Received: 10/04/18 - 1517 Spec Type: COLON BX TISSUES 1 TISSUES: Sigmoid colon biopsy GROSS DESCRIPTION Received in fixative is one container labeled with the patient's name and designated biopsy polyp sigmoid. The specimen consists of one irregular fragment of light parr soft tissue that measures 0.4 x 0.3 x 0.1 cm. The specimen is totally submitted in one cassette. / SJ:tate 10/05/18 TC:1 CPT: 92788 HEADER OPERATION: Colonoscopy (MOD) PRE-OP DIAGNOSIS: Screening TISSUE SUBMITTED: Biopsy polyp sigmoid MICROSCOPIC DESCRIPTION Slides are reviewed. MICROSCOPIC DIAGNOSIS Sigmoid polyp, biopsy: Tubular adenoma. SJ:tate 10/06/18 Signed Devonte Hale 10/06/18 <signature on file> Performed By: #### PCOLBX #### [facility] [address] [place], [place], [address] LIVER PROFILE Collected: 09/29/2018 Status: F Source: [place] 9:53 AM [facility] REPOSITORY TYPE CODE TESTS [...] By: #### L500.3400, L500.4100, L501.0100, L501.9520 #### [facility] [address] [place], [place], [address] LIPID PROFILE Collected: 09/29/2018 Status: F Source: [place] 9:53 AM [facility] REPOSITORY TYPE CODE TESTS [...] By: #### L500.3400, L500.4100, L501.0100, L501.9520 #### [facility] [address] [place], [place], [address] GLUCOSE Collected: 09/29/2018 Status: F Source: [place] 9:53 AM [facility] REPOSITORY TYPE CODE TESTS RESULT OUT OF RANGE REFERENCE UNITS LAB L501.0100 74-106 mg/dL High GLU 107 Result Comment: Fasting Glucose result from 100 to 125 mg/dL suggests IMPAIRED HOMEOSTASIS per A.D.A. criteria. Please note revised GLUCOSE reference range effective 2017. Performed By: #### L500.3400, L500.4100, L501.0100, L501.9520 #### [facility] [address] [place], [address] THYROID STIM HORMONE Collected: 09/29/2018 Status: F Source: [place] [facility]) 9:53 AM ON LICENSE OF [facility] REPOSITORY TYPE CODE TESTS RESULT OUT OF RANGE REFERENCE UNITS LAB L501.9520 0.358-3.74 uIU/mL Normal TSH 1.39 Performed By: #### L500.3400, L500.4100, L501.0100, L501.9520 #### [facility] [address] [place], [address] PACEMAKER CHECK Observed: 09/18/2018 Status: F Source: [place] 3:33 PM [facility] REPOSITORY [place] [facility] [address] [place] [address] Pacemaker Check Date of Service: 09/15/18 1151 MR#: [id number] Acct: [id number] Name: CEM PABLO Jr. Rep #: [id number] : 1955 From: Chela Palomo Age/Sex: 63/M [place] [facility] [place]: Signed Billing Codes ICD Device Billing: ICD Dev Prog Eval, Multi 09/15/18 1156 <Electronically signed by Chela Palomo > Date Chela Palomo 09/18/18 1533<Electronically signed by Christofer Martin MD> Cosign Signature: Date (if applicable) Christofer Martin MD CC: PROGRESS Observed: 09/18/2018 Status: COMPLETED Source: [place] 1:02 PM [facility] REPOSITORY HNO ID: [id number] Author: Kavya Bonner Service: (none) Author Type: [...] MD CNOV Observed: 09/18/2018 Status: COMPLETED Source: [place] 1:00 PM [facility] REPOSITORY Office Visit (GENSWS) CEM PABLO ([id number]) 1955 M Date Time Provider Department 09/18/18 [...] until the day before your colonoscopy. Designated Associate Scientist on the Day of Your Exam A responsible family member or friend MUST come with you to your colonoscopy and REMAIN in the endoscopy area until you are discharged. You are NOT ALLOWED to drive, take a taxi or bus, or leave the Endoscopy Center ALONE. If you do not have a responsible customer service driver (family member or friend) with you [...] carbonated beverages such as balta diallo or lemon-makah soda; Gatorade or other sports drinks (not [...] the day of your colonoscopy. Gudelia Lemus JEREMY 09/18/2018 1:18 PM Signed REVIEW OF SYSTEMS: [...] Mammogram screening? N/A Last Colonoscopy: 04/2008 Gudelia Lemus LPN Referring Provider: MELINDA MAO [[id number]] Allergies As of Date: 09/18/2018 Noted Allergy [...] BottleRfl: 0 SARTHAK PT ED DIGESTIVE DISEASES [5161807] Order #: [id number]: 1 COLONOSCOPY SCRN NOT HIGH RISK [[id number]] Order #: [id number] FUTURE SARTHAK PT ED DIGESTIVE DISEASES [0272632] Order #: [id number]. #:[id number]: [id number] Prescriptions as of 09/18/2018 Sig: HYDROCHLOROTHIAZIDE [...] until the day before your colonoscopy. Designated Associate Scientist on the Day of Your Exam A responsible family member or friend MUST come with you to your colonoscopy and REMAIN in the endoscopy area until you are discharged. You are NOT ALLOWED to drive, take a taxi or bus, or leave the Endoscopy Center ALONE. If you do not have a responsible customer service driver (family member or friend) with you [...] carbonated beverages such as balta diallo or lemon-makah soda; Gatorade or other sports drinks (not [...] of your colonoscopy. Visit Notes: >> Gudelia Mariah LUNA TueSep 18, 2018 1:18 PM Status: Signed REVIEW [...] Mammogram screening? N/A Last Colonoscopy: 04/2008 Gudelia Lemus LPN Prescriptions ordered this encounter Disp Refills Start End PEG 3350-ELECTROLYTES 236 GRAM-22.74* 1 Spencer* 0 09/18/2018 09/18/2018 Route: ORAL Sig: Take 4,000 mL by mouth one time only for 1 dose. Refer to printed prep instructions from your doctor. Encounter Status:Closed by MD KAVYA BONNER on 09/22/18 ECHO, COMPLETE W/ Observed: 07/27/2018 Status: F Source: [place] CONTRAST 4:56 PM [facility] REPOSITORY [facility] Cardiovascular Services [address] [place] [address] Echo Complete W/ Contrast 07/27/18 0853 MR#: [id number] Acct: [id number] Name: CEM PABLO Jr. Rep #: [id number] : 1955 63 From: Christofer Martin MD Attending Dr: Christofer Martin MD Status: REG CLI Ordering Dr: Christofer Martin MD Date: 07/27/18 Location: [facility] Sex: M C Admitted: Reason For Study: [...] Martin MD; Melinda Mao MD Date Dictated: 07/[birth year]/18[birth year] Date Transcribed: 07/27/181654 Meat Sales And Storage Manager: Signed LIVER PROFILE Collected: 2018 Status: F Source: [place] 9:48 AM [facility] REPOSITORY TYPE CODE TESTS [...] 0.12 Performed By: #### L500.3400, L500.4100 #### [facility] [address] [place], [place], [id number] LIPID PROFILE Collected: 2018 Status: F Source: [place] 9:48 AM [facility] REPOSITORY TYPE CODE TESTS [...] VLDL Performed By: #### L500.3400, L500.4100 #### [facility] [address] [place], [address] CARDIOLOGY VISIT Observed: 2018 Status: F Source: [place] REPORT 9:33 AM [facility] REPOSITORY [place] [facility] [address] [place] [address] OFFICE VISIT Date of Service: 07/13/18 MR#: [id number] Acct: [id number] Name: CEM PABLO Jr. Rep #: [id number] : 1955 Provider: Christofer Martin MD Age/Sex: 63/M [place] [facility] Status: Signed HPI [facility] Chief Complaint: Follow up Details: CEM PABLO, is a 63 M who presents to the office today for a follow-up visit. 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 As you know his ejection [...] brachial Intake Visit Reasons: 1 Y FU Belt Cutter Required: No Accompanied by: none Is patient [...] mg PO DAILY 07/13/18 [History Confirmed 07/13/18] PFS Medical History Essential (primary) hypertension (Chronic) HLD [...] Other Orders Orders: Follow Up 1 Year (chiropractor sole practitioner) Coding Level of Care Code Off vis,est,level [...] signed by Christofer Martin MD> Date Christofer Clarke Signature: Date (if applicable) CC: Melinda Mao MD PACEMAKER CHECK Observed: 06/02/2018 Status: F Source: [place] 6:35 AM [facility] REPOSITORY [place] [facility] [address] [place] [address] Pacemaker Check Date of Service: 06/01/18954 MR#: [id number] Acct: [id number] Name: CEM PABLO Jr. Rep #: [id number] : 1955 From: Chela Palomo Age/Sex: 62/M [place] [facility] Status: Signed Billing Codes ICD Device Billing: ICD Dev Prog Eval, Multi 06/01/18 0957 <Electronically signed by Chela Palomo > Date Chela Palomo 06/02/18 0635<Electronically signed by Christofer Martin MD> Vince Signature: Date (if applicable) Christofer Martin MD CC: CNCO Observed: 04/27/2018 Status: COMPLETED Source: [place] 12:00 AM [facility] REPOSITORY Letter Text Melinda Mao MD [facility] Cem Pablo [facility] E [facility] [address] [facility] #: [id number] 04/27/2018 Dear Mr. Pablo, I have received the results of your recent tests. The results of your urinalysis tests were either normal or within the acceptable range. We can discuss this at your next visit. Please do not hesitate to contact me with any questions. Sincerely, Melinda Mao MD [facility] Medicine Department electronically signed to expedite mailing URINALYSIS WITH Collected: 04/26/2018 Status: F Source: [facility] 8:28 AM [facility] REPOSITORY TYPE CODE TESTS RESULT OUT OF REFERENCE UNITS RANGE LAB UCOL Yellow Color Yellow LAB [facility] Clear Clarity Clear LAB UGLUC Negative mg/dL Glucose, Urine Negative LAB UBIL Negative Bilirubin, Urine Negative LAB UKET Negative Ketones, Urine Negative LAB USPG 1.005-1.030 Specific Percival, Ur 1.023 LAB UHGB Negative Hemoglobin/Blood, Negative [...] Epithelial Cells Performed By: #### UAWMIC #### [facility] [address] [place], [place] [address] XR LUMBAR 3V Observed: 04/25/2018 Status: F Source: [place] AP/LAT/L5-S1 9:39 AM [facility] REPOSITORY * * *Final Report* * * DATE OF EXAM: Apr 25 2018 9:39AM WRX 5228 - XR LUMBAR 3V AP/LAT/L5-S1 / PROCEDURE REASON: Radiculopathy, lumbar region * * * * Physician Interpretation * * * * TECHNIQUE: Lumbar spine, 3 views HISTORY: Radiculopathy, lumbar region COMPARISON: None. RESULTS: AP and lateral views were obtained. There are 5 qcg-fsd-ceqhawi lumbar-type vertebrae. Sacroiliac joints unremarkable. Disc space [...] This could also represent right ureteral calculus. Meat Sales And Storage Manager: WING Transcribe Date/Time: Apr 25 2018 2:34P Dictated by : NORMAN PAPPAS MD This examination was interpreted and the report reviewed and electronically signed by: NORMAN PAPPAS MD on Apr 25 2018 2:36PM EST [id number] Observed: 04/25/2018 Status: COMPLETED Source: [place] 9:30 AM [facility] REPOSITORY HNO ID: [id number] Author: Brenda Chong (Rt) Thomas Mohr Service: (none) Author Type: Central Supply Assistant Type: Progress Notes Filed: 04/25/2018 9:39 AM [...] AM PROGRESS Observed: 04/24/2018 Status: COMPLETED Source: [place] 11:29 AM [facility] REPOSITORY HNO ID: [id number] Author: Melinda Mao Service: (none) Author Type: [...] MD CNOV Observed: 04/24/2018 Status: COMPLETED Source: [place] 10:00 AM [facility] REPOSITORY Office Visit (FAMPWS) CEM PABLO ([id number]) 1955 M Date Time Provider Department 04/24/18 [...] I10 - HYDROCHLOROTHIAZIDE 25 MG TABLET Melinda Moa MD Referring Provider: SELF [200] Allergies As [...] tabletRfl: 0 XR LUMBAR GENERAL 3V AP/LAT/L5-S1 [6805535] Order #: [id number] FUTURE CONSULT TO PHYSICAL THERAPY [9032] Order #: [id number]: 1 Prescriptions as of 04/24/2018 Sig: HYDROCHLOROTHIAZIDE [...] PACEMAKER CHECK Observed: 03/07/2018 Status: F Source: [place] 4:04 PM [facility] REPOSITORY [place] [facility] [address] [place] [address] Pacemaker Check Date of Service: 02/23/18837 MR#: [id number] Acct: [id number] Name: CEM PABLO Jr. Rep #: [id number] : 1955 From: Chelachester Palomo Age/Sex: 62/M Location: [facility] Status: Signed Comments Summary Comments: Bi-VICD Evaluation: [...] in office Interview Reason: routine follow up Rn Occupational Health: [employer] Name: [employer]ify SHAMPOO TECHNICIAN-D Model: 2231-40Q Serial #: [id number] Implant Date: 03/29/12 Year(s): 5 Implant Physician: Dr. Joao Powell Patient Characteristics Patient Substrate: Ischemic cardiomyopathy Ejection fraction %: 45 to 49 (06/19/2012) By: Echo Underlying rhythm: Sinus rhythm Pacemaker Dependent: No Device Characteristics Device: Biventricular Type: Implantable defibrillator Remote Follow-Up: No Device Physical Exam Yes Incision well healed Leads Lead #1 Rn Occupational Health Lead 1: [employer] Model Lead 1: 2088TC/52 Serial# Lead 1: [id number] Date Implanted Lead 1: 03/29/12 Position Lead 1: RA Lead #2 Rn Occupational Health Lead 2: [employer] Model Lead 2: 7122Q/58 Serial# Lead 2: [id number] Date Implanted Lead 2: 03/29/12 Position Lead 2: RV Lead #3 Rn Occupational Health Lead 3: Guidant Model Lead 3: 4549 Serial# Lead 3: [id number] Date Implanted Lead 3: 03/29/12 Position Lead [...] I47.2 4. Left bundle-branch block I44.7 03/06/18 3868 <Electronically signed by Chela Palomo > Date Chela Palomo 03/07/18 1604<Electronically signed by Christofer Martin MD> Cosigner Signature: Date (if applicable) Christofer Martin MD CC: PROGRESS Observed: 01/14/2018 Status: COMPLETED Source: [place] 11:06 AM [facility] REPOSITORY O ID: [id number] Author: Melinda Mao Service: (none) Author Type: [...] prn. CNOV Observed: 01/14/2018 Status: COMPLETED Source: [place] 11:00 AM [facility] REPOSITORY [facility] ([id number]) 1955 M Date Time Provider Department 01/14/18 11:00 AM [facility]DA [facility] During your visit today, we recorded the [...] one year and prn. Referring Provider: MELINDA MAO [[id number]] Allergies As of Date: 01/14/2018 Noted Allergy [...] BASIC METABOLIC Collected: 01/11/2018 Status: F Source: [place] PROFILE (BMP) 8:30 AM [facility] REPOSITORY TYPE CODE TESTS [...] 6 GAP Performed By: #### L500.2500 #### [facility] [address] [place], [address] ALLERGIES ALLERGIES DATE TYPE / CODE NAME / CODE REACTION SEVERITY SOURCE Miscellaneous phenobarbitol blisters Unknown [place] 8 [facility] DRUG PHENOBARBITAL HIVES [place] 3 INGREDI/207043497( [facility] SNOMED CT) Alpha Repository ENCOUNTERS ENCOUNTERS ADMIT/DISCHARGE ACCOUNT NUMBER ADMITTING ENCOUNTER LOCATION SOURCE CLASS 11/22/2018/11/23/19 [id number] Ambulatory [address] Repository 11/17/2018 [id number] Ambulatory [facility] ding:LABSPEC Repository 11/02/2018/11/03/19 [id number] Ambulatory [address] Repository 10/25/2018 [id number] Ambulatory [facility] ding:LAB Repository 10/04/2018/10/04/20 [id number] Ambulatory [address] ding:EN Repository 09/29/2018 [id number] Ambulatory [facility] ding:LAB Repository 09/18/2018/09/26/20 [id number] Ambulatory [address] Repository 09/15/2018/09/15/20 [id number] Ambulatory BMSBuilding: Tess [facility] Repository 07/27/2018 [id number] Ambulatory [facility] ding:[facility] Repository 07/27/2018 [id number] Ambulatory BMSBuilding: [facility] Repository 2018 [id number] Ambulatory [facility] ding:LAB Repository 07/13/2018/07/13/20 [id number] Ambulatory BMSBuilding: Tess [facility] Repository 06/01/2018/06/01/20 [id number] Ambulatory BMSBuilding: Tess 18 [facility] Repository 04/26/2018/04/26/20 [id number] Ambulatory [address] Repository 04/25/2018/04/25/20 [id number] Ambulatory [address] Repository 04/24/2018/04/26/20 [id number] Ambulatory [address] Repository 02/23/2018/02/24/20 [id number] Ambulatory BMSBuilding: Tess 18 [facility] Repository 01/14/2018/01/17/20 [id number] Ambulatory [address] Repository 01/12/2018 [id number] Ambulatory Building:[facility] Repository 01/11/2018 [id number] Ambulatory [facility] ding:LAB Repository PAYERS PAYERS ENCOUNTER GUARANTOR PAYER SUBSCRIBER SOURCE 11/17/2018 CEM D Primary CEM D PABLO [place] PABLO Insurance:MEDICARE PART Jr.: [facility] Jr.8911 CR A BPolicy Number: [id number] Repository [address] [place] [address] Date:2018-11-17 23353Ben: () 11/17/2018 Secondary CEM D PABLO Tess Insurance:Jose Resendez: [facility] Number: [id number] Hospital [id number] Repository Date:1678-98-35[address]JVSE[place]PFJ, [place] [address]UL: 11/17/2018 Tertiary Insurance:SELF NOT GIVENUNK Tess PAY [facility] Number: Effective Hospital Date:2018-11-17 Repository 10/25/2018 CEM D Primary CEM D PABLO Tess PABLO Insurance:MEDICARE PART Jr.: [facility] Jr.8911 CR A BPolicy Number: [id number] Repository [place], [place] Date:2018-10-25 588[address]Uoe: () 10/25/2018 Secondary CEM D PABLO Tess Insurance:CIGNAPolicy Jr.: Community Number: [id number] Hospital [id number] Repository Date:0771-38-58FH [address]HSLTEQFVK, [place] [address]VE: 10/25/2018 Tertiary Insurance:SELF NOT GIVENUNK Tess PAY INSURANCEPolicy Community Number: Effective Hospital Date:2018-10-25 Repository 10/04/2018 CEM D Primary CEM D PABLO [place] PABLO Insurance:MEDICARE PART Jr.: [facility] Jr.8911 CR A BPolicy Number: [id number] Repository [address], [place] Date:2018-09-27 00113Olq: () 10/04/2018 Secondary CEM D PABLO [place] Insurance:CIGNAPolicy Jr.: Community Number: [id number] Hospital [id number] Repository Date:2578-46-84QA [address]ULE[address]JYSCS, [place] [address]VX: 10/04/2018 Tertiary Insurance:SELF NOT GIVENUNK [place] PAY INSURANCEPolicy Community Number: Effective Hospital Date:2018-09-27 Repository 09/29/2018 CEM D Primary CEM D PABLO [place] PABLO Insurance:MEDICARE PART Jr.: [facility] Jr.8911 CR A BPolicy Number: [id number] Repository [address], [place] Date:2018-09-29 94294Ncz: () 09/29/2018 Secondary CEM D PABLO Tess Insurance:CIGNAPolicy Jr.: Community Number: [id number] Hospital [id number] Repository Date:7613-07-37YR [address]KJAZKSIRB, [place] [address]LZ: 09/29/2018 Tertiary Insurance:SELF NOT GIVENUNK [place] PAY INSURANCEPolicy Community Number: Effective Hospital Date:2018-09-29 Repository 09/15/2018 CEM D Primary CEM D PABLO Tess PABLO Insurance:MEDICARE PART Jr.: [facility] .8911 CR A BPolicy Number: [id number] Hospital [id number] Repository [address], [place] Date:2018-06-01 310[address]Fdw: () 09/15/2018 Secondary CEM D PABLO Tess Insurance:Jose Resendez: Community Number: 0Effective [id number] Hospital Date:8599-59-40NS BOX Repository [place]RLZXZE[place]ABP, [place] [address]PB: 09/15/2018 Tertiary Insurance:SELF NOT GIVENUNK Tess PAY INSURANCEPolicy Community Number: Effective Hospital Date:2018-09-11 Repository 07/27/2018 CEM D Primary CEM D PABLO Tess PABLO Insurance:MEDICARE PART Jr.: [facility] Jr.8911 CR A BPolicy Number: [id number] [id number] Repository [address], [place] Date:2018 [address]Mzn: () 07/27/2018 Secondary CEM D PABLO [place] Insurance:CECE LAI Jr.: Community SUPPLEMENT [id number] Hospital SOLUTIONSPolicy Number: Repository [id number] Date:5484-26-46XDKKBTNDLEV[facility] LIFE INSPO [address] [address], [place] [address]LF: 07/27/2018 Tertiary Insurance:SELF NOT GIVENUNK [place] PAY INSURANCEPolicy Community Number: Effective Hospital Date:2018 Repository 07/27/2018 CEM D Primary CEM D PABLO [place] PABLO Insurance:MEDICARE PART Jr.: [facility] .8911 CR A BPolicy Number: [id number] [id number] Repository [address] [place] [address], [place] Date:2018 [address]Jbm: () 07/27/2018 Secondary CEM D PABLO Tess Insurance:CECE LAI Jr.: Community SUPPLEMENT [id number] Hospital SOLUTIONSPolicy Number: Repository [id number] Date:8457-54-25UUZAAAGFLEVINE CHILDR[facility] LIFE [address]SP[address] [address], [place] [address]NN: 07/27/2018 Tertiary Insurance:SELF NOT GIVENUNK Tess PAY INSURANCEPolicy Community Number: Effective Hospital Date:2018-07-27 Repository 2018 CEM D Primary CEM D PABLO [place] PABLO Insurance:MEDICARE PART Jr.: [facility].[address] [place] [address] BPolicy Number: [id number] [id number] Repository [address] [place] [address], [place] Date:2018 [address]Tyq: () 2018 Secondary CEM D PABLO Tess Insurance:Jose Resendez: Community Number: [id number] Hospital [id number] Repository Date:4216-96-19KC [address]CCNTUZYPVYO, [place] [address]XI: 2018 Tertiary Insurance:SELF NOT GIVENUNK Tess PAY INSURANCEPolicy Community Number: Effective Hospital Date:2018 Repository 2018 CEM D Primary CEM D PABLO Tess PABLO Insurance:MEDICARE PART Jr.: [facility].[address] [place] [address] BPolicy Number: [id number] [address] [place] [address], [id number] Repository [place] [address]Ivf: Date:2017-10-11 () 2018 Secondary CEM D PABLO [place] Insurance:Jose Resendez: Community Number: [id number] Hospital [id number] Repository Date:9376-41-79UZ [address]YYVIVGWAPFO, [place] [address]QJ: 2018 Tertiary Insurance:SELF NOT GIVENUNK [place] PAY INSURANCEPolicy Community Number: Effective Hospital Date:2018 Repository 06/01/2018 CEM D Primary CEM D PABLO [place] PABLO Insurance:RACHEL Resendez: [facility] JrMick8911 [facility] [id number] [address] [place] [address], Number: Repository [place] [address]Gfm: [id number] Date:4793-48-97SK [address] () [address] [place] [address]WY: 06/01/2018 Secondary NOT GIVENUNK Tess Insurance:SELF PAY Community INSURANCEPolicy Number: Hospital Effective Repository Date:2018-06-01 02/23/2018 CEM D Primary CEM D PABLO Tess PABLO Jr.296 Insurance:RACHEL Resendez: [facility] [place]01[place] Number: Repository [address]Iin: 330 [id number] [phone] () Date:9273-45-22VK [address] [place] [address]YT: 02/23/2018 Secondary NOT GIVENUNK Tess Insurance:SELF PAY Community INSURANCEPolicy Number: Hospital Effective Repository Date:2018-02-23 01/12/2018 CEM D Primary CEM D PABLO [facility] PABLO Insurance:RACHEL RESENDEZ: [place] : [employer] [id number] [facility] E Number: Zachariah MCNAIR [facility] [id number] [place], [place] Repository [place], [place] Date:1312-44-57Jfze [address]Djf: ([phone]) 40[address]Tbj: (571) Name:[facility] [phone] () 01/11/2018 CEM [place]far[place] Primary CEM PABLO Jr.[facility] Insurance:RACHEL Resendez: [facility] Zachariah Singleton [id number] Number: Repository [address]Ivw: ([phone]) [id number] [phone] () Date:4472-91-72[address] [address]EU: 01/11/2018 Secondary NOT GIVENCHANCE [place] Insurance:SELF PAY Community INSURANCEPolicy Number: Hospital Effective Repository Date:2018-01-11
== END ==
PROVIDERS: Family Provider Family Medicine; PCP Family Medicine; Referring Provider Ophthalmology; Visit Provider Ophthalmology
DX: D23.121 Other benign neoplasm of skin of left upper eyelid, including canthus (principal)
CPT/HCPCS: 88305

== ENCOUNTER 2019-03-22 09:28 | Day surgery (SDC) | payer MEDICARE, OTHER, SELFPAY ==
[2018-10-04 12:04] VITALS: BMI 30.8
[2019-03-12 10:25] VITALS: BMI 31.0
--- NOTE | 2019-03-12 10:44 | HP_ITS ---
HPI HPI History of Present Illness Surgical H&P: Yes Details: This is a 63-year-old gentleman that presents here today for an updated history and physical. His LOKIE DRIVER device has reached MUSHTAQ. He is scheduled to undergo a generator change on March 22, [address] Powell. He does have a history of idiopathic atypical cardiomyopathy and left bundle branch block. From a cardiac standpoint, patient is doing well. He does not have any chest discomfort/heaviness/tightness. His exercise tolerance is stable for his age. He does not have any worsening symptoms of shortness of breath. He denies any PND. He does not have any orthopnea. He does not have any symptoms of congestive heart failure. He does not have any palpitations that he is aware of. He does not have any lightheadedness or dizziness. He does not have any near-syncope or syncope. He does not have any lower extremity edema. He does not have any symptoms of claudication. Intake Vital Signs 03/12/19 Height 6 ft 2 in 03/12/19 Weight: 242 lb 03/12/19 Body Mass Index (BMI) 31.0 03/12/19 Blood Pressure 125/83 H 03/12/19 Blood Pressure Location Lt brachial 03/12/19 Blood Pressure Position Sitting 03/12/19 Respiratory Rate 16 03/12/19 Pulse Rate 83 03/12/19 Pulse Source Monitor Intake Visit Reasons: H&P for ILR explant 5-23; Mirtha 10a Lead Driver Required: No Accompanied by: Is patient in pain?: No Allergies phenobarbitol Allergy (Uncoded 03/12/19 10:25) blisters Medications aspirin 81 mg tablet,delayed release 81 mg PO DAILY 07/13/18 [History Confirmed 03/12/19] lisinopril 20 mg tablet 20 mg PO DAILY 07/13/18 [History Confirmed 03/12/19] doxazosin 1 mg tablet 1 mg PO DAILY 07/27/18 [History Confirmed 03/12/19] hydrochlorothiazide 25 mg tablet 25 mg PO DAILY 07/27/18 [History Confirmed 03/12/19] fenofibrate nanocrystallized 145 mg tablet 145 mg PO DAILY #30 tab 11/24/18 [Rx Confirmed 03/12/19] carvedilol 12.5 mg tablet 12.5 mg PO BID #180 tab 03/12/19 [Rx Confirmed 03/12/19] Ejection fraction %: 55 to 59 PFSH Medical History Essential (primary) hypertension (Chronic) HLD (hyperlipidemia) (Chronic) Paroxysmal ventricular tachycardia (Chronic) Primary idiopathic hypertrophic cardiomyopathy (Chronic) Left bundle-branch block (Chronic) Surgical History Hx of knee surgery (Resolved) History of carpal tunnel surgery (Resolved) Biventricular implantable cardioverter-defibrillator in situ (Chronic) Family History Father Cancer CAD (coronary artery disease) Mother Cancer liver Sister No problems noted. Social History Smoking Status: Former smoker how long ago did patient quit smokin.5 years ago alcohol intake: never substance use type: does not use caffeine: Yes (3 times per week) Type: carbonated beverages ROS Const Const: Negative for fatigue, weakness, headache(s), frequent falls, night sweats, daytime sleepiness or excessive sweating Eyes Eyes: Negative for blind spots, loss of peripheral vision, transient loss of vision, blurry vision or double vision ENT ENT: Negative for headache(s) or balance problems Cardio Chest Pain: No Palpitations: No Edema: None Muscle aches with walking: None Resp Respiratory: Negative for SOB with activity, SOB at rest, SOB orthopnea\SOB lying down, Cough or paroxysmal nocturnal dyspnea GI GI: Negative nausea, vomiting, heartburn, bright, red blood in stools or black,tarry stools : Negative for hematuria Musc Musc: Negative for muscle aches/ myalgia, muscle weakness, joint pain or balance problems Skin Skin: Negative non-healing lesions, rash or unusual bruising Neuro Neuro: Negative for frequent falls, headache(s), weakness, blurry vision or double vision Dom Hematologic/Lymphatic: Negative for easy bleeding or easy bruising Endo Endo: Negative for fatigue or excessive sweating Psych Psych: Negative for anxiety or depression Allergy Allergy/Immunology: Negative for rash Cardiology Exam Const Appearance: cooperative, no acute distress and well developed Orientation: alert, awake and oriented x3 Head Head: normocephalic and atraumatic Mouth: moist mucous membranes Eyes General: appearance normal, both eyes and all related structures Conjunctivae: conjunctivae normal Pupils: PERRL EOM: EOM intact bilaterally Neck Neck: normal visual inspection, no lymphadenopathy and no JVD Carotids: Negative bruit Neck Mass: Negative Neck mass Chest Chest inspection: normal inspection of the chest, symmetric chest movement and Pacemaker/ICD Yes left pectoral incision Auscultation: Bilateral: Clear to Auscultation Cardio Palpation: normal PMI Rate: regular rate Rhythm: regular rhythm Heart sounds: S1 normal and S2 normal; negative rub, gallop or murmur GI GI: normal to inspection, soft, no hepatosplenomegaly and bowel sounds present; negative tender Neuro General: alert, awake, oriented x3, CN's II-XI intact bilaterally and moves all extremities Extremities Pulses: Normal: Right Posterior Tibial Pulse, Left Posterior Tibial Pulse, Right Radial Pulse, Left Radial Pulse Lower Extremity Edema: None: Bilateral Psych Psychological: normal affect Assessment & Plan 1. Primary idiopathic hypertrophic cardiomyopathy I42.2 Plan - CHELI An This has improved. He will continue with his aggressive medical management. We will continue to monitor by history, exam and echocardiograms as deemed appropriate Orders Orders: 12 Lead EKG performed by [facility] Today 2. Essential hypertension I10 Plan - CHELI An Well-controlled on current medications. Will not make any adjustment 3. Mixed hyperlipidemia E78.2 Plan - CHELI An Recent lipid profile demonstrates total cholesterol 136, HDL 27, LDL 32, triglycerides are 383. He will continue with his current medical management. 4. Biventricular implantable cardioverter-defibrillator in situ Z95.810 Plan - CHELI An Patient's device has reached MUSHTAQ. He is scheduled to undergo a generator change on March 22. He will continue to follow-up accordingly after peer Orders Orders: 12 Lead EKG performed by [facility] Today Plan Detail Other Orders Orders: 12 Lead EKG performed by [facility] I47.2 Other Medications Refilled: carvedilol 12.5 mg PO BID 180 tabs 3RF Additional Comments - CHELI An The above patient was discussed with , he agrees with plan of care. Thank you for allowing us to participate in patient's plan of care, if you have any questions please do not hesitate to call. This note was generated using a voice recognition system and there may be incorrect words, spelling or punctuation errors that were not noted when reviewing the office note prior to saving. Patient is scheduled to undergo a generator change with Dr. 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 Martin. Follow Up 03/12/19 (keep as is) Coding Level of Care Code Off vis,est,level 3 Diagnoses Primary idiopathic hypertrophic cardiomyopathy I42.2 Essential hypertension I10 Mixed hyperlipidemia E78.2 ??Hyperlipidemia type: mixed hyperlipidemia Biventricular implantable cardioverter-defibrillator in situ Z95.810 Coding Level of Care Code Off vis,est,level 3 Diagnoses Primary idiopathic hypertrophic cardiomyopathy I42.2 Essential hypertension I10 Mixed hyperlipidemia E78.2 ??Hyperlipidemia type: mixed hyperlipidemia Biventricular implantable cardioverter-defibrillator in situ Z95.810 Supplemental Info Supplemental Information Echocardiogram in 2018 demonstrated:Normal LV size. The estimated ejection fraction is 55 %. Stage 1 diastolic dysfunction. The left atrium is mildly enlarged. Contrast injection was performed. Compared to previous study, the left ventricular systolic function has improved. Labs LDL Cholesterol 32 mg/dL (0-130) 10/25/18 HDL Cholesterol 27 mg/dL (40-) L 10/25/18 Triglycerides 383 mg/dL (-199) H 10/25/18 VLDL Cholesterol 77 mg/dL (5-40) H 10/25/18 Diagnostics Electrocardiogram 03/12/19 Echocardiogram 07/27/18 Pacemaker Check 12/18/18 03/12/19 1120 <Electronically signed by Maddison BOWER> Date Maddison BOWER 03/12/19 1424<Electronically signed by Christofer Martin MD> Cosigner Signature: Date (if applicable) Christofer Martin MD
--- NOTE | 2019-03-12 11:00 | RAD_ITS ---
STUDY: X-RAY CHEST REASON FOR EXAM: Male, 63 years old. Preop for generator change TECHNIQUE: PA and lateral views of the chest. COMPARISON: 2014 FINDINGS: Left subclavian pacemaker in satisfactory position. The lungs are clear and expanded. There is no demonstrated pleural abnormality. Normal size heart. Normal mediastinum and dony. Normal visualized pulmonary arteries. Normal visualized aortic arch and descending thoracic aorta. Normal visualized thoracic spine. Normal visualized ribs, clavicles, and shoulders. There is no demonstrated abnormality of the visualized soft tissue structures of the upper abdomen. RAD/Chest PA and Lateral IMPRESSION: No acute pulmonary process Electronically Signed: Reyes Nugent MD at 14:50 EDT , Service support ,
[2019-03-12 11:36] LABS: Bacteria 0 SEEN /hpf (None Seen); Mucous, Urine 0 SEEN /hpf (<or=2+)
[2019-03-12 12:14] LABS: Hematocrit 44.3 % (40-54); Hemoglobin 15.4 g/dl (13.0-16.5); Mean Corp Hgb Conc 34.8 g/gl (32-36); Mean Corpuscular Volume 89.1 fL (80-94); Mean Platelet Vol. 10.2 fl (6.2-12.0); Platelet Count 212 K/mm3 (150-450); RBC Distribution Width CV 13.7 % (11.6-14.6); RBC Distribution Width SD 44.3 fl (35.1-43.9); Red Blood Count 4.97 M/mm3 (4.6-6.2); Scan Indicated on CBC? Y/N NO; White Blood Count 7.4 K/mm3 (4.4-11.0)
[2019-03-12 12:15] LABS: Color, Urine Yellow (Yellow); Glucose, Dipstick Normal (Normal); Ketone-Dipstick Negative (Negative); Leukocyte Esterase-Dipstick 25 /ul (Negative); Nitrite-Dipstick Negative (Negative); Occult Blood-Urine 10 /ul (Negative); Protein-Dipstick Negative (Negative); Specific Gravity, Urine 1.025 (1.002-1.030); Urine Bilirubin Dipstick Negative (Negative); Urine Clarity Sl. Cloudy (Clear); Urine Urobilinogen Normal (Normal)
[2019-03-12 12:21] LABS: Red Blood Cells-Urine 0-5 SEEN /hpf (0-5); Squamous Epithelial Cells - UA 0-5 SEEN /hpf (0-5); White Blood Cells 0-5 SEEN /hpf (0-5)
[2019-03-12 12:34] LABS: International Normalized Ratio 1.2
[2019-03-12 12:39] LABS: Anion Gap 2 (5-15); BUN 22 mg/dL (7-18); BUN/Creat Ratio 26.4 RATIO (10-20); Calcium,Total 9.1 mg/dL (8.5-10.1); Chloride 104 mmol/L (98-107); Creatinine, Serum 0.83 mg/dL (0.70-1.30); EST Glomerular Filtration Rate 98 mL/min (>60); Est Glom Filt Rate - Afr Amer 119 mL/min (>60); Glucose 104 mg/dL (74-106); Potassium 3.7 mmol/L (3.5-5.1); Sodium Level 136 mmol/L (136-145)
[2019-03-21 12:55] VITALS: BMI 31.0
--- NOTE | 2019-03-22 12:13 | OP.PCM_ITS ---
Report of Operation Description of Procedure: Preoperative diagnosis is device at end of life for normal battery depletion. Postoperative diagnosis same as above. After informed consent and IV antibiotics the patient was brought to the [facility] catheterization laboratory and the skin over the device was prepped and draped in the usual sterile manner. Intermittent boluses of Versed, and fentanyl were used for sedation and analgesia as well as 1% subcutaneous lidocaine. An incision was made over the pre-existing device. Using blunt and Bovie dissection the pocket was opened and the device was removed. Careful attention was paid not to injure the pre-existing leads. The leads were removed from the device header and they were interrogated. There is normal lead function. Hemostasis was obtained. The pocket was flushed with antibiotic solution. The sponge and needle count were correct. The new device was brought to the field. The leads were placed in the appropriate position in the header and secured by the set screw. The leads and the device were then placed in the pocket. The pocket was closed with a deep layer of running 2-0 Vicryl, a superficial layer of running 4-0 Vicryl, skin with Steri-Strips which were covered with a rolled 4 x 4 and Tegaderm. Patient left the room with the device programmed to proper parameters and there were no complications. The device is a BiV ICD generator. All lead parameters were tested and found to be functionally normal. Lead and device serial and model numbers are available in the chart documents provided by the device company advertising account representative procedure summary.
== END 2019-03-22 14:00 | disposition home or self-care (01) ==
LOC: CLSP 09:30
PROVIDERS: Internal Medicine Cardiovascular Disease; Family Provider Family Medicine; PCP Family Medicine; Referring Provider Internal Medicine Cardiovascular Disease; Visit Provider Internal Medicine Cardiovascular Disease
DX: I42.2 Other hypertrophic cardiomyopathy (principal); I10 Essential (primary) hypertension; I44.7 Left bundle-branch block, unspecified; I47.2 Ventricular tachycardia; Z95.810 Presence of automatic (implantable) cardiac defibrillator; Z98.890 Other specified postprocedural states; E78.2 Mixed hyperlipidemia; Z79.82 Long term (current) use of aspirin; Z79.899 Other long term (current) drug therapy; Z87.891 Personal history of nicotine dependence
CPT/HCPCS: 33264; 36415; 71046; 80048; 81001; 85027; 85610; 93641; 99152; 99153; J7040; J7050

== ENCOUNTER → 2020-07-28 | Outpatient (CLI) | payer MEDICARE, OTHER, SELFPAY ==
[2020-07-22 09:00] VITALS: BMI 30.5
--- NOTE | 2020-07-28 13:31 | ECHOD_ITS ---
Reason For Study: CAD/ASHD Procedure This was a 2D Doppler, Color Flow transthoracic echocardiogram. Exam performed in department. Left Ventricle Normal LV size. Sigmoid septum. Left ventricular systolic function is normal. The estimated ejection fraction is 55 %. Stage 1 diastolic dysfunction. No regional wall motion abnormalities noted. Right Ventricle Normal RV size. Normal systolic function. Atria The left atrium is moderately enlarged. Normal right atrium. Mitral Valve Normal mitral valve. Tricuspid Valve Normal tricuspid valve. Mild tricuspid valve insufficiency. Pulmonary artery systolic pressure is 30 mmHg. Aortic Valve Normal aortic valve. Trisinus/trileaflet aortic valve. Pulmonic Valve Normal pulmonic valve. Great Vessels Normal aortic root. The pulmonary artery is normal size. Normal inferior vena cava. Pericardium/Pleural No pericardial effusion. MMode/2D Measurements & Calculations LVIDd: 5.0 cm IVSd: 1.2 cm Ao root diam: 3.9 cm LVIDs: 3.0 cm LVPWd: 1.5 cm RVDd: 3.4 cm FS: 40.1 % LAV(MOD-bp): 90.7 ml LVAd ap4: 29.3 cm2 SV(MOD-sp4): 54.9 ml LAV(MOD-bp) Indexed: 39.0 ml/m2 EDV(MOD-sp4): 95.6 ml LAV(MOD-sp2): 92.7 ml EDV(sp4-el): 96.5 ml LAV(MOD-sp4): 82.7 ml LVAs ap4: 17.5 cm2 ESV(MOD-sp4): 40.7 ml ESV(sp4-el): 40.5 ml EF(MOD-sp4): 57.4 % EF(sp4-el): 58.0 % SV(sp4-el): 56.0 ml LA A4 area: 24.9 cm2 LA dimension(2D): 4.8 cm RA A4 area: 17.2 cm2 Doppler Measurements & Calculations MV E max derik: 55.5 cm/sec Lat Peak E' Derik: 6.5 cm/sec Med Peak E' Derik: 4.6 cm/sec MV A max edrik: 80.8 cm/sec E/E' lat: 8.5 E/E' med: 11.9 MV E/A: 0.69 Ao V2 max: 137.0 cm/sec LV V1 max: 118.9 cm/sec PA V2 max: 76.6 cm/sec Ao max P.5 mmHg LV V1 max P.7 mmHg Ao V2 mean: 94.7 cm/sec Ao mean P.0 mmHg Ao V2 VTI: 28.9 cm TR max derik: 259.0 cm/sec TR max P.8 mmHg Interpretation Summary Normal LV size. Sigmoid septum. Left ventricular systolic function is normal. The estimated ejection fraction is 55 %. Stage 1 diastolic dysfunction. The left atrium is moderately enlarged. Ordering Physician: Christofer Martin Referring Physician: Thad Mao Performed By: Pattie Dent, MIKAL, RVT
== END | disposition home or self-care (01) ==
LOC: CVS 13:31
PROVIDERS: PCP Family Medicine; Referring Provider Internal Medicine Cardiovascular Disease; Visit Provider Internal Medicine Cardiovascular Disease
DX: Z01.810 Encounter for preprocedural cardiovascular examination (principal); I25.10 Atherosclerotic heart disease of native coronary artery without angina pectoris
CPT/HCPCS: 93306

== ENCOUNTER → 2020-08-05 | Outpatient (CLI) | payer MEDICARE, OTHER, SELFPAY ==
[2019-07-17 08:55] VITALS: BMI 31.1
[2020-07-22 09:00] VITALS: BMI 30.5
--- NOTE | 2020-08-05 12:27 | CT_ITS ---
Study: CT of the left lower extremity without contrast dated 08/05/2020 Prior study: None. CLINICAL HISTORY: Left knee pain. Had a knee replacement on August 27. PROCEDURE: Multiple computed tomographic images of the left lower extremity from the hip to knee were obtained at 2.5 mm intervals using 2.5 mm thick slices in the axial projection. Coronal and sagittal reconstructions were obtained. Radiation dose: Total exam DLP: 1344.39 FINDINGS: The osseous structures and articular surfaces of the left hip appear within normal limits. No significant degenerative changes of the left hip are noted. The visualized left hemipelvis appears normal. There are moderately severe degenerative changes with joint space narrowing of the medial knee compartment. There are mild arthritic changes of the lateral knee compartment. There are moderately severe degenerative changes of the patellofemoral compartment. No free intraarticular calcifications of the left knee are noted. There is a minimal suprapatellar effusion. Muscular soft tissue fascial planes are preserved. CT/Extremity Lower without Contra IMPRESSION: Tricompartmental degenerative changes of the left knee most severely affecting the medial and patellofemoral compartments. Small suprapatellar effusion. Electronically Signed: Chas Ayon MD at 20:43 EDT , Service support ,
== END | disposition home or self-care (01) ==
LOC: CT 11:48
PROVIDERS: PCP Family Medicine; Referring Provider Specialist; Visit Provider Specialist
DX: M21.162 Varus deformity, not elsewhere classified, left knee (principal)
CPT/HCPCS: 73700

== ENCOUNTER 2020-08-27 15:00 | Observation (INO) | payer MEDICARE, OTHER, SELFPAY ==
[2019-07-17 08:55] VITALS: BMI 31.1
[2020-07-22 09:00] VITALS: BMI 30.5
--- NOTE | 2020-08-05 12:09 | EKG12_ITS ---
Test Reason : PRE OP Blood Pressure : / mmHG Vent. Rate : 060 BPM Atrial Rate : 060 BPM P-R Int : 000 ms QRS Dur : 158 ms QT Int : 494 ms P-R-T Axes : 094 -87 093 degrees QTc Int : 494 ms Ventricular-paced rhythm Abnormal ECG Confirmed by PAMELA HAYDEN, SRAVANI ([id number]), digital editor ISH NICOLAS ([id number]) on 08/06/2020 10:16:51 AM Referred By: Keo Gallagher Confirmed By:SRAVANI SANTIAGO MD
[2020-08-05 12:12] LABS: Absolute Neutrophil Count 3.6 X10^3/uL (2.0-7.7); Basophil# 0.02 X10^3/uL; Basophil% 0.3 % (0-1); Eosinophil# 0.28 X10^3/uL; Eosinophils% 4.8 % (0-5); Hematocrit 43.5 % (40-54); Hemoglobin 14.3 g/dL (13.0-16.5); Lymphocyte % 27.3 % (19-41); Mean Corp Hgb Conc 32.9 g/dL (32-36); Mean Corpuscular Hgb 30.1 pg (27.0-32.0); Mean Corpuscular Volume 91.6 fL (80-94); Mean Platelet Vol. 9.9 fl (6.2-12.0); Monocyte# 0.39 X10^3/uL; Monocyte% 6.7 % (0-10); NRBC Flagged by Analyzer 0 % (0-5); Neutrophil # 3.56 X10^3/uL (2.7-7.7); Neutrophil % 60.7 % (47-70); Platelet Count 204 K/mm3 (150-450); RBC Distribution Width CV 13.1 % (11.6-14.6); RBC Distribution Width SD 43.7 fl (35.1-43.9); Red Blood Count 4.75 M/mm3 (4.6-6.2); White Blood Count 5.9 K/mm3 (4.4-11.0)
[2020-08-05 12:31] LABS: Hemoglobin A1c 5.5 % (3.8-5.6)
[2020-08-05 12:48] LABS: Anion Gap 3 (5-15); BUN 21 mg/dL (7-18); Calcium,Total 9.2 mg/dL (8.5-10.1); Chloride 105 mmol/L (98-107); Creatinine, Serum 0.72 mg/dL (0.70-1.30); EST Glomerular Filtration Rate 115 mL/min (>60); Est Glom Filt Rate - Afr Amer 139 mL/min (>60); Glucose 105 mg/dL (74-106); Sodium Level 137 mmol/L (136-145)
--- NOTE | 2020-08-08 15:35 | HP.PCM_ITS ---
History and Physical History and Physical Patient Name: Cem Bartlett : 1955 From: [facility] URIBE NP DATE OF SURGERY: 08/27/2020 SCHEDULED PROCEDURE: Left total knee arthroplasty HISTORY OF PRESENT ILLNESS: Preoperative history and physical exam was performed on August 05, 2020. This is a 65-year-old male has been experiencing ongoing left knee pain for several years. He describes the pain as constant and aching. The pain is 6 on a scale of 10. The pain is made worse with stairs, driving and walking. He does report start up pain. The patient notes clicking in the left knee. The pain is located over the medial joint line. The pain does wake him at night. The patient had a left knee arthroscopy in 1974 for medial meniscus tear. Previous conservative measures consist of rest, ice, heat and elevation with no relief. The patient has had multiple corticosteroid injections. He had Euflexxa injections with no relief. The patient takes nonsteroidal anti-inflammatories such as Aleve with no relief. The patient has a medical history pertinent for cardiomyopathy, hypertension, hypercholesterolemia and BPH. The patient has an implanted ICD. He denies chest pain, fevers, chills, shortness breath, difficulty breathing or recent infections. Surgical clearance has been obtained from his primary care provider Dr. Mao and photograph retoucher Dr. Martin. After failing conservative measures and discussing treatment options with Dr. Keo Gallagher the patient does wish to proceed with a left total knee arthroplasty. REVIEW OF SYSTEMS: ROS: Const: Denies anorexia, change in appetite, fever, difficulty sleeping, weight change. CV: Denies chest pain, heart murmur, irregular heartbeat and peripheral vascular disease. Resp: Denies asthma, cough, pneumonia, sleep apnea, shortness of breath, tuberculosis and wheezing. GI: Denies constipation, diarrhea, heartburn, nausea, rectal itching, bloody stools and vomiting. : Denies incontinence. Musculo: Reports weakness, but denies leg swelling, pain and trouble walking. Skin: Denies Raynaud's, history of shingles and tattoo. Neuro: Reports numbness/tingling but denies ambulatory dysfunction, dizziness and tremor. Psych: Denies anxiety, depression, insomnia, mental illness and stress. Dom/Lymph: Denies anemia, bleeding/bruising tendency and past transfusion. Reviewed, no changes. PAST MEDICAL HISTORY: Advance Care Plan: No Advance Directives Effective Date: 12/17/2019 PMH: Medical Problems: Kidney Problem - 1960'S Cardio Myopathy, High Blood Pressure, Nephritis, Hypercholesterolemia Accidents: None Surgical Hx: Knee Arthroscopy Lt - (1974) RT CTS - (05/27/2011) JWG @ [facility] Icd Implant - (2011) REPLACED 2019 Neck Vertabea Cadaver Anesthesia Complications: Combative Assistive Devices: Glasses - READING Reviewed and updated. SOCIAL HISTORY: SH: Marital: .Occupation: Retired.Work Status: Retired.Hand Dominance: Right- handed. Personal Habits: Cigarette Use: Former.Smokeless Tobacco: Never Used Smokeless Tobacco.E-Cigarette Use: Never used.Alcohol: Denies use.Drug Use: Denies Use.Enjoy Exercising: Daily. Reviewed, no changes. VITALS: Ht: 70 Wt: 235lb Wt k.596 BMI: 33.7 BP: 112/70 Pulse: 66 Resp: 16 T: 97.4 T: 36.3C ALLERGIES: Phenobarbital - Hives MEDICATIONS: Mupirocin 2 % use qtip and apply inside each nostril twice a day until the day of surgery, Doxazosin Mesylate 1 mg 1 PO qday, Lisinopril 20 mg 1 po BID, Carvedilol 12.5 mg 1 po bid, Aspirin 81 mg 1 po qd, Hydrochlorothiazide 25 mg 1po qday, Fenofibrate 145 mg 1po qday PRE-OP EXAM: General appearance:NORMAL Other: Eyes: Conjunctivae and lids: NORMAL Pupils: ERR Ears, Nose, Mouth, and Throat: NORMAL Other: Inspection of lips, teeth and gums: NORMAL Other: Respiratory: Assessment of respiratory effort: NORMAL Other: Auscultation of lungs: clear to auscultation no wheezes, rhonchi or rales. Cardiovascular: Auscultation of heart: regular rate and rhythm, no murmurs, gallops or rubs. Gastrointestinal: Exam of abdomen: soft, nontender, nondistended bowel sounds present. Neurological: see below Psychiatric: Orientation to time, place and person: NORMAL Other: Mood and affect: NORMAL Other: PHYSICAL EXAMINATION: The patient ambulates with a mild limping gait. The skin is warm, dry and intact to the left knee. Pain with palpation along the medial joint line. Correctable varus alignment. Stable to varus and valgus stress testing. Range of motion: Lacks 3 of extension to 107 flexion. Sensation intact to light touch. IMAGING STUDIES: 4 views of left knee including sunrise and lateral and bilateral weight-bearing AP and tunnel views obtained on December 17, 2019 reviewed reveals the left knee with varus alignment and medial joint space narrowing, subchondral sclerosis and osteophyte formation consistent with moderate to severe stage III-IV tricompartmental osteoarthritis. IMPRESSION: 1. Posttraumatic osteoarthritis, left knee 2. Cardiomyopathy 3. Hypertension 4. Hypercholesterolemia 5. BPH 6. Implanted ICD PLAN: Dr. Keo Gallagher did discuss and review with the patient all treatment options including surgical versus nonsurgical. The patient does wish to proceed with the above-stated procedure. Potential risk, benefits and complications of the procedure were discussed in detail including but not limited to , infection, nerve and blood vessel damage, persistent pain, numbness, tingling, paresthesia, blood clot, pulmonary embolism and requirement for possible further surgery. The patient expressed full understanding and has no further questions for the doctor. The patient does agree to proceed with the above-stated procedure and has signed the surgery consent form. Discussed with the patient the risks associated with the COVID-19 virus including the risk of exposure while at the hospital. The patient was reassured local hospitals have low infection rates and taken all necessary precautions to limit patient exposure to COVID-19. Limiting the patient's time in the hospital may decrease their exposure to COVID-19. The patient was notified that we will need to comply with any screening or testing the hospital wishes to perform and that surgery may be delayed for any positive test results. This dictation was created using voice recognition software. Phonetic and/or grammatical errors may exist. ___ I have re-examined the patient. There are no clinical changes since date of exam. ___ See progress notes for changes. ___ Dictated on admission Date: Time: Signature:
[2020-08-27] VITALS (10 sets, daily range): BP systolic 106–156; BP diastolic 68–99; PULSE 57–92; RESP 16; TEMP 36.3–36.8; O2SAT 95–99; BMI 31.6
[2020-08-27] MEDS: Celecoxib 200 MG Capsule 400 MG PO (07:00)
[2020-08-27] MEDS: Gabapentin 600 MG Tablet PO (12:10)
[2020-08-27] MEDS: Acetaminophen 500 MG Tablet 1000 MG PO ×2 (12:11→21:28)
[2020-08-27] MEDS: Scopolamine 1mg/72hr Patch 1 PATCH TRANSDERM. (12:11)
[2020-08-27] MEDS: Lactated Ringers 1,000 ML 100 ML IV (12:14)
[2020-08-27 12:41] LABS: Bedside Glucose 143 mg/dL (70-110)
[2020-08-27] MEDS: Cefazolin 2 GM in 0.9% Normal Saline 100 ML IV (13:27)
[2020-08-27] MEDS: dexAMETHasone 10 MG/ML Vial IV (13:40)
--- NOTE | 2020-08-27 15:03 | PCM.OPRPT ---
Report of Operation Date of Procedure: 08/27/20 Pre-Operative Diagnosis: Left knee primary osteoarthritis Post-Operative Diagnosis: Left knee primary osteoarthritis Surgery/Procedure Performed:: Left minimally invasive robotic assisted total knee replacement Description of Surgical Findings:: Stable knee with good patella tracking referral management liaison: Román Solorzano Type of Anesthesia:: Spinal Anesthesiologist: Home [facility] Special Medications: 2 g Ancef, 1 g TXA at incision, 1 g TXA closure, 10 mg Decadron, joint cocktail (5 mg Duramorph, 30 mL of 0.5% Ropivicaine, 1000 units of epinephrine, 30 mg of Toradol) Specimen's removed: Bony cuts Estimated Blood Loss (mL): 75 mL Fluids Replaced: 1000 mL crystalloid Description of Procedure: Implants used: 1. [place] size 6 triathlon cruciate retaining distal femoral press-fit component 2. Brando size 7 press-fit tritanium tibial baseplate 3. Brando X3 9 mm CS polyethylene 4. Brando X3 38 MM asymmetric patella Brief history operative indications: 65-year-old M with history of left knee osteoarthritis with radiographic findings with loss of joint space, osteophyte formation and subchondral sclerosis. Failed conservative measures as mentioned in the H&P. Discussion of total knee arthroplasty as well as risk and benefits were discussed the patient including but not limited to blood loss, DVTs, PEs, neurovascular damage, general risk of anesthesia including loss of life, and stiffness or instability were discussed with patient. Patient demonstrated understanding and was able to sign informed consent. Procedure: On the date of procedure patient's left lower extremity was marked in the preoperative area. The patient was then taken back to the operating room where the patient was placed on the table in the supine position. All bony prominences were identified a well-padded. Anesthesia assumed control of the C-spine and airway and remained controlled throughout the remainder of the procedure. A tourniquet was placed on the left upper thigh and the leg was prepped in a sterile fashion. The surgeon then scrubbed at this time .Upon reentering the room left lower extremity was draped in a standard orthopedic fashion. A timeout was then called and everyone agreed upon the side, the site, the procedure to be performed, patient's identity and antibiotics given. Esmarch bandage was used to exsanguinate the extremity and the tourniquet was placed up to 250 mmHg with the knee in flexion. A midline skin incision was made and sharp dissection was taken down through skin subcutaneous tissue and fat. The standard medial parapatellar incision was made and the patella was subluxed laterally. An Appropriate deep MCL release was done and the fat pad was resected. Our attention was then directed to the patella. The patella was everted and a flat resection was made. The knee was then flexed up in 2 femoral pins were placed inside the incision and 2 tibial pins were placed outside the incision in the medial tibia bicortically. Once this was completed the 2 checkpoints in the femur and tibia were placed. Knee was then flexed up and the bony landmarks were registered. Once this was completed knee was taken through range of motion and manually stressed allowing us to a plan for an appropriate tibial cut. The robotic arm was brought into the field sterilely and checkpoint and saw were registered. Based on the patient's deformity the tibial cut was made in 2 degrees of varus. At this time the tensioner was then placed in the joint and ligament tension was checked at 90 degrees and full extension. Based on the patient's ligamentous tension appropriate adjustments were made to the operative plan and ligament releases were done. Once we were happy with our operative plan with balanced flexion and extension gaps our attention was directed to the femur. The robot was brought into the field sterilely and registered. Posterior condylar cuts, anterior chamfer cuts and anterior cuts were appropriately made for a size 6 femur. When these were completed the saws were switched out in the distal femoral and posterior chamfer cuts were made. Protecting the soft tissue throughout this time. A size 7 tibial base plate was selected. the knee was flexed to 90 degrees and the soft tissues and posterior osteophytes were removed from the joint. 40 cc of the periarticular injection was injected into the posterior medial corner of the joint. The appropriate trials were then placed on the femur and tibia. A trial polyethylene was trialed to ensure proper balancing and stability of the knee. The appropriate tibial internal rotation was then marked with a bovie. Our attention was then directed to the patella. The lug holes were drilled and the patella trial was placed. Patellar tracking was checked and deemed appropriate. Once we were happy lug holes were drilled for the femur and trial components were removed. the tibia was subluxed and pinned into place and the keel was punched and drilled appropriately. Final components were verified and opened, and cement was mixed in a vacuum. [employer] Simplex cement was used. The wound was copiously irrigated with normal saline. When the cement was ready the components were impacted into place starting with the tibia, femur and finally cementing the patella. The trial poly component was placed and the knee was placed in full extension. All excess cement was removed in the process. Once the cement had cured the tracking, alignment and balance were verified and a size 9 mm CS polyethylene component was placed. Once the final components were placed an Irrisept lavage was performed and the wound was copiously irrigated with normal saline solution and the periarticular injection was given. The wound was closed in a layer wen fashion using #1 vicryl interrupted sutures for the arthrotomy, 2-0 interrupted Vicryl suture for the subcuticular layer and rossy for final skin closure. A sterile compressive dressing was then placed. The patient was then awakened from anesthesia, transferred to the rkinde and transferred to the PACU for recovery. Post op plan DVT ppx: ASA 81mg BID, thigh high compression stockings Follow up: in office in 2 weeks for wound check PT: to start POD #0 at hospital, outpatient PT should be arranged. My physician clinical assistant was a vital part of this case. He was important in appropriate retraction during the case, and protection of soft tissues during bony cuts. His intimate knowledge of the case and my steps aided in safe and expedient completion of the procedure as well as appropriate position of the leg during the case. He was also vital in assisting with closure under my direct supervision. Due to the complexity of this case robotic arm was used to assist in the surgery to improve accuracy and clinical outcomes. - Complications NONE - Admit VTE Documentation VTE Present on Admission: No VTE Mechan Device Prophylaxis: SCD's, Thigh High SULEIMAN Hose VTE Pharm Prophylaxis ordered?: Yes
[2020-08-27] MEDS: Lactated Ringers 1,000 ML 125 ML IV ×2 (15:43→16:41)
--- NOTE | 2020-08-27 15:45 | RAD_ITS ---
STUDY: X-RAY - LEFT KNEE REASON FOR EXAM: Male, 65 years old. POST OP TOTAL KNEE TECHNIQUE: 2 view(s) of the knee. COMPARISON: None. FINDINGS: Normal visualized distal femur. Normal visualized proximal tibia and fibula. Normal proximal tibiofibular articulation. Status post recent total knee arthroplasty with skin rossy and subcutaneous emphysema.. The soft tissue structures are unremarkable. RAD/Knee 1 or 2 Views IMPRESSION: Status post recent total knee arthroplasty. Electronically Signed: Shen Rudolph MD at 16:14 EDT Tel , Service support ,
[2020-08-27] MEDS: Ensure Surgery 237 ML LIQUID PO (18:32)
[2020-08-27] MEDS: Cefazolin 1 GM/50 ML BAG IV (21:23)
[2020-08-27] MEDS: Aspirin 81 MG TAB.CHEW PO (21:28)
[2020-08-27] MEDS: Carvedilol 12.5 MG Tablet PO (21:28)
[2020-08-27] MEDS: Lisinopril 20 MG Tablet PO (21:28)
[2020-08-27] MEDS: Fenofibrate 145 MG Tablet PO (21:28)
[2020-08-27] MEDS: Senna/Docusate Sodium 1 Tablet 2 TABLET PO (21:28)
[2020-08-27] MEDS: Doxazosin 1 MG Tablet PO (21:28)
--- NOTE | 2020-08-27 23:56 | NURSING ---
Sats 88-90% on room air. Oxygen placed at 2L via n/c and sats quickly antony to 95%.
[2020-08-28 01:25] VITALS: BP 143/82; PULSE 87; RESP 16; TEMP 36.8; O2SAT 96
[2020-08-28 05:14] VITALS: BP 150/86; PULSE 79; RESP 18; TEMP 36.6; O2SAT 96
[2020-08-28] MEDS: Acetaminophen 500 MG Tablet 1000 MG PO ×2 (05:20→13:52)
[2020-08-28] MEDS: Cefazolin 1 GM/50 ML BAG IV (05:22)
[2020-08-28 06:30] LABS: Hematocrit 38.6 % (40-54); Hemoglobin 12.7 g/dL (13.0-16.5); Mean Corp Hgb Conc 32.9 g/dL (32-36); Mean Corpuscular Volume 91.3 fL (80-94); Mean Platelet Vol. 9.9 fl (6.2-12.0); Platelet Count 172 K/mm3 (150-450); RBC Distribution Width CV 13.4 % (11.6-14.6); RBC Distribution Width SD 44.6 fl (35.1-43.9); Red Blood Count 4.23 M/mm3 (4.6-6.2); White Blood Count 12.3 K/mm3 (4.4-11.0)
[2020-08-28 06:52] LABS: Anion Gap 5 (5-15); BUN 21 mg/dL (7-18); BUN/Creat Ratio 24.6 RATIO (10-20); Calcium,Total 8.7 mg/dL (8.5-10.1); Chloride 105 mmol/L (98-107); Creatinine, Serum 0.86 mg/dL (0.70-1.30); EST Glomerular Filtration Rate 95 mL/min (>60); Est Glom Filt Rate - Afr Amer 115 mL/min (>60); Glucose 172 mg/dL (74-106); Potassium 4.4 mmol/L (3.5-5.1); Sodium Level 137 mmol/L (136-145)
[2020-08-28 07:30] VITALS: BP 132/79; PULSE 77; RESP 16; TEMP 36.4; O2SAT 94
[2020-08-28] MEDS: Aspirin 81 MG TAB.CHEW PO (07:43)
[2020-08-28] MEDS: Lisinopril 20 MG Tablet PO (07:44)
[2020-08-28] MEDS: Famotidine 20 MG Tablet PO (07:44)
[2020-08-28] MEDS: hydroCHLOROthiazide 25 MG Tablet PO (07:44)
[2020-08-28] MEDS: Carvedilol 12.5 MG Tablet PO (07:44)
[2020-08-28] MEDS: Ensure Surgery 237 ML LIQUID PO (07:48)
--- NOTE | 2020-08-28 09:39 | PN.ORTHO_ITS ---
Subjective: The patient was sitting in bedside chair upon examination. Patient denies any chest pain, shortness of breath, dizziness, lightheadedness, nausea or vomiting, or calf pain. Pain is controlled on medications. No adverse overnight events. Overall patient has done well. He did have a drop in O2 saturation in which she required 2 L overnight. Patient on room air has been stable at 94%. He denies any chest pain, shortness of breath, or calf pain. Patient also denies any history of sleep apnea or requiring oxygen in the past. He does wish to go home today. He is doing very well with regards to his left total knee arthroplasty. He states he has minimal pain. He did receive a postoperative block. This was discussed in detail with the patient. Objective: Vital signs stable and afebrile. Patient is able to plantarflex and dorsiflex actively. Sensation is intact to light touch to saphenous, sural, superficial and deep peroneal, and tibial distribution. Main dressing is with minimal drainage over the middle one third with remaining dressing clean dry and intact. Negative Homans bilaterally, negative signs and symptoms of DVT. - Physical Exam Vitals/I&O's: Vital Signs Temp Pulse Resp BP Pulse Ox 97.6 F L 77 16 132/79 H 94 08/28/20 07:30 08/28/20 07:30 08/28/20 07:30 08/28/20 07:30 08/28/20 07:30 Oxygen Flow Rate (L/min) 2 Oxygen Delivery Method Room Air Weight: 108.9 kg Body Mass Index (BMI) 31.6 Intake and Output for Last 24 Hours 08/26/20 08/27/20 08/28/20 23:59 23:59 23:59 Intake Total 3098.17 / 3098.17 181.50 / 181.50 Output Total 600 / 600 Balance 3098.17 / 3098.17 -418.50 / -418.50 General: Alert, Oriented x3, Cooperative, No apparent distress Laboratory Results 08/27/20 11:59: POC Glucose 143 H 08/28/20 06:05: WBC 12.3 H, RBC 4.23 L, Hgb 12.7 L, Hct 38.6 L, MCV 91.3, MCH 30.0, MCHC 32.9, RDW Std Deviation 44.6 H, RDW Coeff of Pawan 13.4, Plt Count 172, MPV 9.9 08/28/20 06:05: Sodium 137, Potassium 4.4, Chloride 105, Carbon Dioxide 27.0, Anion Gap 5, BUN 21 H, Creatinine 0.86, Estim Creat Clear Calc 94.20, Est GFR (MDRD) Af Amer 115, Est GFR (MDRD) Non-Af 95, BUN/Creatinine Ratio 24.6 H, Glucose 172 H, Calcium 8.7 Current Medications Acetaminophen (Acetaminophen 500 Mg Tablet) 1,000 mg PO Q8 [facility] Last Admin: 08/28/20 05:20 Dose: 1,000 mg Documented by: Aspirin (Aspirin 81 Mg [facility].Chew) [facility] Last Admin: 08/28/20 07:43 Dose: 81 mg Documented by: Carvedilol (Carvedilol 12.5 Mg Tablet) 12.5 mg PO BID [facility] Last Admin: 08/28/20 07:44 Dose: 12.5 mg Documented by: Cholecalciferol (Cholecalciferol (Vit D3) 1,000 Unit (25mcg)) 1,[facility] Last Admin: 08/28/20 07:44 Dose: 1,000 unit Documented by: Doxazosin Mesylate (Doxazosin 1 Mg Tablet) 1 mg PO QHS [facility] Last Admin: 08/27/20 21:28 Dose: 1 mg Documented by: Enteral Nutritional Formula (Ensure Surgery 237 Ml Liquid) 237 ml PO TIDCM [facility] Last Admin: 08/28/20 07:48 Dose: 237 ml Documented by: Famotidine (Famotidine 20 Mg Tablet) 20 mg PO DAILY [facility] Last Admin: 08/28/20 07:44 Dose: 20 mg Documented by: Fenofibrate (Fenofibrate 145 Mg Tablet) 145 mg PO QHS [facility] Last Admin: 08/27/20 21:28 Dose: 145 mg Documented by: Hydrochlorothiazide (Hydrochlorothiazide 25 Mg Tablet) 25 mg PO DAILY [facility] Last Admin: 08/28/20 07:44 Dose: 25 mg Documented by: Ketorolac Tromethamine (Ketorolac 15 Mg/Ml Vial) 15 mg IV Q6H PRN PRN PRN Reason: Pain Score 1-5 Stop: 08/29/20 15:02 Lisinopril (Lisinopril 20 Mg Tablet) 20 mg PO BID [facility] Last Admin: 08/28/20 07:44 Dose: 20 mg Documented by: Meloxicam (Meloxicam 7.5 Mg Tablet) 7.5 mg PO BID [facility] Morphine Sulfate (Morphine 2 Mg/Ml Syringe) 2 - 4 mg IV Q2H PRN PRN PRN Reason: Pain Score 6-10 Morphine Sulfate (Morphine 4 Mg/Ml Syringe) 2 - 4 mg IV Q2H PRN PRN PRN Reason: Pain Score 6-10 Ondansetron HCl (Ondansetron 4 Mg/2 Ml Vial) 4 mg IV Q8H PRN PRN PRN Reason: NAUSEA Oxycodone HCl (Oxycodone 5 Mg Tablet) 5 - 10 mg PO Q4H PRN PRN PRN Reason: Pain Score 4-10 Promethazine HCl (Promethazine 25 Mg/Ml Syringe) 12.5 mg IM Q6H PRN PRN; Protocol PRN Reason: NAUSEA/VOMITING Senna/Docusate Sodium (Senna/Docusate Sodium 1 Tablet) 2 tablet PO BID [facility] Last Admin: 08/28/20 07:44 Dose: Not Given Documented by: Sodium Chloride (0.9% Nacl Peripheral Flush Adult/Peds) 5 - 15 ml IV UD PRN PRN Reason: SALINE FLUSH Sodium Chloride (0.9% Saline Lock 10 Ml Syringe) 10 - 40 ml IV UD PRN PRN Reason: SALINE FLUSH Assessment/Plan All Active Problems (Last Reviewed 07/22/20 @ 09:[address] Christofer Martin MD) Preop cardiovascular exam (Acute) 1. S/P left total knee arthroplasty POD #1 2. Continue Pain Medications: Tylenol and OxyIR 3. DVT Prophylaxis: Take 81 mg aspirin twice daily for 4 weeks postoperatively for DVT prophylaxis 4. PT/OT: Weightbearing as tolerated 5. H & H: 12.7/38.6, asymptomatic. Drop in hemoglobin secondary to acute blood loss from surgery without any complications intraoperatively 6. Reactive leukocytosis: Currently 12.3, afebrile. Patient did receive Decadron intraoperatively 7. Encouraged Incentive Spirometry 8. Disposition: Plan will be for discharge home today as long as patient is medically stable, vitals remained stable, pain is well controlled, and patient tolerates therapy. Patient has outpatient physical therapy established. Patient will follow-up per postop instructions. Prescriptions will be E scribed to [facility] in [facility]. I have reviewed the [place] Automated Rx Reporting System (OARRS) report for this patient for refill pattern and other prescriber involvement as part of the appropriate surveillance for the provision of acute and chronic controlled medications. The report was requested and reviewed on the date of this entry and was considered in the prescribing process.
--- NOTE | 2020-08-28 09:46 | PCM.DC.TKR ---
Discharge Diet: No Restrictions Discharge Activity: May Not Drive May shower in (days): 1 - Dressing must be intact to skin. Turn dressing away from water Ice area for (Minutes): 20 - Every 1-2 hours while awake Weight Bearing Status: Weight bearing as tolerated Elevate: Operative Extremity Additional Activity Instructions:: Wear elastic stockings for 2 weeks after your surgery. Call your doctor if your incision/area has: Continuous Slow Oozing, Sudden Increased Bleeding, Increased Pain/ Swelling, Increased Redness, Foul Smelling Discharge Call your doctor if you observe: Fever of 101 or Higher, Coldness, Increased Pain, Numbness or Tingling, Change in Color, Calf discomfort, Uncontrolled pain Remove Dressing in (days):: 4 - Okay to remove dressing on September 01, 2020 Additional Instructions: Follow orthopedic postop instructions Allergies/Adverse Reactions: Allergies phenobarbitol Allergy (Uncoded 08/27/20 11:49) blisters Medications to take at Discharge lisinopril 20 mg tablet 20 mg PO BID 07/13/18 doxazosin 1 mg tablet 1 mg PO QHS 07/27/18 hydrochlorothiazide 25 mg tablet 25 mg PO DAILY 07/27/18 Carvedilol 12.5 mg PO BID 08/06/20 Cholecalciferol (VIT D3) [Vitamin D3] 1,000 unit PO DAILY 08/06/20 Fenofibrate Nanocrystallized [Fenofibrate] 145 mg PO QHS 08/06/20 Acetaminophen [Tylenol] 1,000 mg PO Q8 #100 tab 08/28/20 Aspirin [Aspirin, Baby] 81 mg PO BIDCM #60 tab 08/28/20 Famotidine [Pepcid] 20 mg PO DAILY #30 tab 08/28/20 Oxycodone [Oxyir] 5 - 10 mg PO Q4H PRN PRN 5 Days #60 tablet 08/28/20 Senna/Docusate Sodium [Senokot-S] 2 tab PO BID #10 tab 08/28/20 The following prescriptions were given: Aspirin [Aspirin, Baby] 81 mg PO BIDCM #60 tab Transmission Status: Pending to [id number] Oxycodone [Oxyir] 5 - 10 mg PO Q4H PRN PRN 5 Days #60 tablet PRN Reason: Pain Score 4-10 Transmission Status: Received by [id number] Famotidine [Pepcid] 20 mg PO DAILY #30 tab Transmission Status: Pending to [id number] Senna/Docusate Sodium [Senokot-S] 2 tab PO BID #10 tab Transmission Status: Pending to [id number] Acetaminophen [Tylenol] 1,000 mg PO Q8 #100 tab Transmission Status: Pending to [facility][id number] Primary Care Physician: Thad Mao MD [Primary Care Provider] - Test Results: Test results from this visit will be discussed in further detail at your follow-up appointment, if applicable. Please Follow Up With: [facility] When: 08/29/20 @ 10:30 am Please Follow Up With: Marisol Hayes NP, [employer] When: 09/10/20 @ 10:45 am
--- NOTE | 2020-08-28 10:40 | CASEMGMT ---
RN ANSELMO Face to Face with patient for initial transition planning/care coordination assessment. RN CM introduced self and role at [facility]. Patient sitting in chair, alert and oriented. Patient willing to participate in assessment and is able to answer all questions appropriately. Care providers, pharmacy, and demographics verified. Patient wishes to discharge home and is setup with [facility] for outpatient therapy. Patient states he has no further needs or concerns at this time. CM to follow for discharge planning needs that may arise. PCP: [place] Specialists: Carolynn Gallagher; Veronica, power station operator Preferred Pharmacy: [facility] Insurance: [employer]ich[employer] Prescription Benefit: yes Living Will/HPOA: none LNOK: Living Arrangements: patient lives with in a single story home with no steps to enter the home. Patient states he was independent prior to surgery. Transportation: DME/HHC: Patient states he has a shower chair, raised toilet, and walker at home. Patient is setup with outpatient therapy at [facility] starting Tuesday Disposition Plan: Patient to discharge home with outpatient therapy, family support, and follow-up plans in place. Rosalba BENITEZ, RN, CM
[2020-08-28 12:00] VITALS: BP 145/58; PULSE 69; RESP 16; TEMP 36.8; O2SAT 94
== END 2020-08-28 14:18 | disposition home or self-care (01) ==
LOC: SDC 15:53 → MS3 15:53
PROVIDERS: Anesthesiology; Registered Nurse; Admitting Provider Specialist; PCP Family Medicine; Referring Provider Specialist; Visit Provider Specialist
PROC: 0SRD0JZ Replacement of Left Knee Joint with Synthetic Substitute, Open Approach (ICD-10-PCS; CPT 27447; principal; 2020-08-27 12:45)
DX: M17.32 Unilateral post-traumatic osteoarthritis, left knee (principal); Z20.828 Contact with and (suspected) exposure to other viral communicable diseases; N40.0 Benign prostatic hyperplasia without lower urinary tract symptoms; I10 Essential (primary) hypertension; E78.00 Pure hypercholesterolemia, unspecified; I42.9 Cardiomyopathy, unspecified; R94.31 Abnormal electrocardiogram [ECG] [EKG]; Z79.899 Other long term (current) drug therapy; Z79.82 Long term (current) use of aspirin; Z95.810 Presence of automatic (implantable) cardiac defibrillator; Z87.891 Personal history of nicotine dependence
CPT/HCPCS: 01400; 27447; 64447; S2900; 36415; 73560; 80048; 82962; 83036; 83735; 85025; 85027; 87077; 87081; 87635; 93005; 96361; 96365; 96366; 97116; 97161; 97166; 99218; 99251; C1776; C9803; J7120; G0378; G0379; G0463; J2405; U0003

== ENCOUNTER → 2021-02-05 10:54 | Outpatient (CLI) | payer MEDICARE, OTHER, SELFPAY ==
[2020-08-27 17:19] VITALS: BMI 31.6
[2021-02-05 11:58] LABS: PSA,Total - Annual Screen 8.51 ng/mL (0.00-4.00)
== END ==
LOC: LABSPEC 10:58 → LAB 02-06 06:33
PROVIDERS: PCP Family Medicine; Visit Provider Urology
DX: Z12.5 Encounter for screening for malignant neoplasm of prostate (principal)
CPT/HCPCS: 36415; 84153; G0103